=== PATIENT | female | born 1970 | race Caucasian/White ===

== ENCOUNTER 2017-01-03 19:34 | Inpatient (IN) | payer OTHER, MEDICAID ==
[2017-01-03 20:13] LABS: BASO # 0.02 K/mm3 (0.0-2.0); BASO % 0.3 % (0.0-3.0); EOS # 0.3 (0.0-0.7); EOS % 3.5 % (1.5-5.0); GRAN # 3.52 (1.4-6.5); GRAN % 47.4 % (50.0-68.0); LYMPH % 40.7 % (22.0-35.0); MEAN CELL VOLUME 95.5 fL (80.0-105.0); MEAN CORPUSCULAR HEMOGLOBIN 32.4 pg (25.0-35.0); MEAN CORPUSCULAR HGB CONC 33.9 g/dl (31.0-37.0); MEAN PLATELET VOLUME 10.5 fl (7.0-11.0); MONO # 0.6 (0.1-0.6); MONO % 8.1 % (1.0-6.0); PLATELET COUNT 244 10^3/uL (120.0-450.0); RBC 4.01 10^6/uL (3.5-6.1); RED CELL DISTRIBUTION WIDTH 12.3 % (11.5-14.5); WHITE BLOOD COUNT 7.4 10^3/ul (4.5-11.0)
--- NOTE | 2017-01-03 20:15 | CT ---
EXAM: CT Head Without Intravenous Contrast CLINICAL HISTORY: 46 years old, female; Signs and symptoms; Altered mental status/memory loss and speech disturbance; Confusion or disorientation; Slurred speech; Additional info: Code stroke TECHNIQUE: Axial computed tomography images of the head/brain without intravenous contrast. This CT exam was performed using one or more of the following dose reduction techniques: automated exposure control, adjustment of the mA and/or kV according to patient size, and/or use of iterative reconstruction technique. EXAM DATE/TIME: 01/03/2017 7:56 PM COMPARISON: There are no prior studies for comparison. FINDINGS: Brain: Ventricles are normal in size and configuration. There is no midline shift. There are no intra-axial or extra-axial mass lesions or areas of hemorrhage. There is an age indeterminate lacunar infarct in the left basal ganglia. There are no abnormal fluid collections. Navarrete-white differentiation is maintained. Ventricles: See above Bones: Cranial vault is intact. Soft tissues: unremarkable Sinuses: There is no acute sinusitis. Ears and mastoids: Middle ears and mastoids are unremarkable Orbits: Orbital contents are unremarkable. IMPRESSION: Age-indeterminate lacunar infarct left basal ganglia; no bleed If there is suspicion for acute infarct, MRI advised
[2017-01-03 20:18] LABS: ALB/GLOB RATIO 1.2 (1.1-1.8); AST/SGOT 17 U/L (15-39); BLOOD UREA NITROGEN 13 mg/dL (7-21); CALCIUM 8.9 mg/dL (8.4-10.5); GFR AFRICAN-AMERICAN > 60; GFR NON-AFRICAN AMERICAN > 60; HDL CHOLESTEROL 46 mg/dL (29-60)
[2017-01-03 20:21] LABS: INR 1.01 (0.93-1.08); PARTIAL THROMBOPLASTIN TIME 26.6 Seconds (23.7-30.8); PROTHROMBIN TIME 10.9 Seconds (9.9-11.8)
[2017-01-03 20:29] LABS: LDL CHOLESTEROL 138 mg/dL (0-129)
[2017-01-03 20:33] LABS: TROPONIN I < 0.01 ng/mL
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
[2017-01-03 20:51] LABS: ALT/SGPT 24 U/L (7-56)
[2017-01-03] MEDS ORDERED: Nicardipine 20 MG/200 ML 20 MG/200 ML BAG IV PRN (23:11)
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
--- NOTE | 2017-01-03 23:30 | CT ---
EXAM: CT Angiography Neck With Intravenous Contrast CLINICAL HISTORY: 46 years old, female; Signs and symptoms; Speech disturbance; Slurred speech; Additional info: CVA TECHNIQUE: Axial computed tomographic angiography images of the neck with intravenous contrast using CT angiography protocol. This CT exam was performed using one or more of the following dose reduction techniques: automated exposure control, adjustment of the mA and/or kV according to patient size, and/or use of iterative reconstruction technique. MIP reconstructed images were created and reviewed. Coronal and sagittal reformatted images were created and reviewed. CONTRAST: 150 mL of omnipaque 350 administered intravenously. COMPARISON: No relevant prior studies available. FINDINGS: VASCULATURE: Right common carotid artery: Unremarkable. No significant stenosis. No dissection or occlusion. Right internal carotid artery: Unremarkable. Extracranial segment is patent with no significant stenosis. No dissection or occlusion. Right external carotid artery: Unremarkable. No occlusion. Right vertebral artery: Unremarkable. No significant stenosis. No dissection or occlusion. Left common carotid artery: Unremarkable. No significant stenosis. No dissection or occlusion. Left internal carotid artery: Unremarkable. Extracranial segment is patent with no significant stenosis. No dissection or occlusion. Left external carotid artery: Unremarkable. No occlusion. Left vertebral artery: Unremarkable. No significant stenosis. No dissection or occlusion. NECK: Bones/joints: No acute fracture. No dislocation. Soft tissues: Unremarkable as visualized. No mass. CAROTID STENOSIS REFERENCE USING NASCET CRITERIA: % ICA stenosis = (1 - narrowest ICA diameter/diameter of distal cervical ICA) x 100. Mild - <50% stenosis. Moderate - 50-69% stenosis. Severe - 70-94% stenosis. Near occlusion - 95-99% stenosis. Occluded - 100% stenosis. IMPRESSION: Unremarkable CT examination of the neck, as detailed above.
--- NOTE | 2017-01-03 23:35 | CT ---
EXAM: CT Angiography Head With Intravenous Contrast CLINICAL HISTORY: 46 years old, female; Signs and symptoms; Speech disturbance; Slurred speech; Additional info: CVA TECHNIQUE: Axial computed tomographic angiography images of the head with intravenous contrast using CT angiography protocol. This CT exam was performed using one or more of the following dose reduction techniques: automated exposure control, adjustment of the mA and/or kV according to patient size, and/or use of iterative reconstruction technique. MIP reconstructed images were created and reviewed. Coronal and sagittal reformatted images were created and reviewed. CONTRAST: 150 mL of omnipaque 350 administered intravenously. COMPARISON: CT - HEAD W/O (CODE STROKE) 01/03/2017 7:52:14 PM FINDINGS: Right internal carotid artery: No acute findings. Intracranial segment is patent with no significant stenosis. No aneurysm. Right anterior cerebral artery: Unremarkable. No occlusion or significant stenosis. No aneurysm. Right middle cerebral artery: Unremarkable. No occlusion or significant stenosis. No aneurysm. Right posterior cerebral artery: Unremarkable. No occlusion or significant stenosis. No aneurysm. Right vertebral artery: Unremarkable as visualized. Left internal carotid artery: No acute findings. Intracranial segment is patent with no significant stenosis. No aneurysm. Left anterior cerebral artery: Unremarkable. No occlusion or significant stenosis. No aneurysm. Left middle cerebral artery: Unremarkable. No occlusion or significant stenosis. No aneurysm. Left posterior cerebral artery: Unremarkable. No occlusion or significant stenosis. No aneurysm. Left vertebral artery: Unremarkable as visualized. Basilar artery: Unremarkable. No occlusion or significant stenosis. No aneurysm. IMPRESSION: Unremarkable CTA of the head, as detailed above.
[2017-01-04 01:49] VITALS: BMI 27.8
[2017-01-04] MEDS ORDERED: Pneumococcal 23-Valent Vaccine IM ONE (01:49)
[2017-01-04 05:49] LABS: HEMOGLOBIN 13.4 gm/dL (12.0-16.0); MEAN CELL VOLUME 96.1 fL (80.0-105.0); MEAN CORPUSCULAR HEMOGLOBIN 32.4 pg (25.0-35.0); MEAN CORPUSCULAR HGB CONC 33.7 g/dl (31.0-37.0); MEAN PLATELET VOLUME 10.6 fl (7.0-11.0); PLATELET COUNT 243 10^3/uL (120.0-450.0); RBC 4.14 10^6/uL (3.5-6.1); RED CELL DISTRIBUTION WIDTH 12.6 % (11.5-14.5); WHITE BLOOD COUNT 7.8 10^3/ul (4.5-11.0)
[2017-01-04 05:54] LABS: INR 1.03 (0.93-1.08); PARTIAL THROMBOPLASTIN TIME 25.7 Seconds (23.7-30.8); PROTHROMBIN TIME 11.1 Seconds (9.9-11.8)
[2017-01-04 06:24] LABS: ALB/GLOB RATIO 1.3 (1.1-1.8); ALBUMIN 3.9 g/dL (3.0-4.8); ALT/SGPT 18 U/L (7-56); AST/SGOT 20 U/L (15-39); BLOOD UREA NITROGEN 11 mg/dL (7-21); CALCIUM 9.3 mg/dL (8.4-10.5); GFR AFRICAN-AMERICAN > 60; GFR NON-AFRICAN AMERICAN > 60
[2017-01-04 06:41] LABS: EOSINOPHIL 3 % (0.0-3.0); LYMPHOCYTE 43 % (22.0-35.0); MONOCYTE 7 % (1.0-6.0); NEUTROPHIL 44 % (50.0-70.0)
[2017-01-04 06:42] LABS: BAND 3 % (0-2)
[2017-01-04 06:43] LABS: PLATELET ESTIMATE NORMAL (NORMAL)
--- NOTE | 2017-01-04 07:45 | RAD ---
PROCEDURE: CHEST RADIOGRAPH, 1 VIEW HISTORY: cva COMPARISON: None available. FINDINGS: LUNGS: Clear. PLEURA: No pneumothorax or pleural fluid seen. CARDIOVASCULAR: Normal. OSSEOUS STRUCTURES: No significant abnormalities. VISUALIZED UPPER ABDOMEN: Normal. OTHER FINDINGS: None. IMPRESSION: No active disease.
--- NOTE | 2017-01-04 11:29 | CARD ---
APPROVED REPORT EKG Measurement Heart [id number] <Conclusion> Sinus rhythm with short NC Otherwise normal ECG
[2017-01-04] MEDS ORDERED: DiphenhydrAMINE 50 mg/ml Inj IM ONE (11:39)
--- NOTE | 2017-01-04 11:39 | CP.PCM.CON ---
History of Present Illness - History of Present Illness History of Present Illness: Mrs. Victor is a 46-year-old woman with a history of two previous ischemic strokes in 2012 and 2014 that left her with some left sided weakness. She is able to ambulate with the use of a brace at baseline, and is able to use her left arm. However, yesterday she developed sudden worsening of her left side weakness and could no longer stand or use her left side. Her family called 911 immediately and the patient was brought to the ED where a CT scan of the head did not show any acute findings. She was within the 3 hour tPA time window and she received the infusion without any complications. Today, she states that she is feeling better and has regained much of the movement back on the left side. She denied headache, visual changes, nausea, swelling, difficulty with respirations or any rashes. Review of Systems - Review of Systems All systems: reviewed and no additional remarkable complaints except Past Patient History - Infectious Disease Hx of Infectious Diseases: None - Tetanus Immunizations Tetanus Immunization: Unknown - Past Social History Smoking Status: Never Smoked - CARDIAC Hx Hypertension: Yes - PULMONARY Hx Respiratory Disorders: No - NEUROLOGICAL Hx Neurological Disorder: Yes HX Cerebrovascular Accident: Yes (02/2014?; 12/04/14) Hx Migraine: Yes (Takes Fiorcet.) - HEENT Hx HEENT Problems: No - RENAL Hx Chronic Kidney Disease: No - ENDOCRINE/METABOLIC Hx Endocrine Disorders: No - HEMATOLOGICAL/ONCOLOGICAL Hx Blood Disorders: No - INTEGUMENTARY Hx Dermatological Problems: No - MUSCULOSKELETAL/RHEUMATOLOGICAL Hx Musculoskeletal Disorders: Yes (Hx of Rt Knee Surgery 2014.) Hx Falls: No - GASTROINTESTINAL Hx Gastrointestinal Disorders: Yes (Gastritis) - GENITOURINARY/GYNECOLOGICAL Hx Genitourinary Disorders: No - PSYCHIATRIC Hx Depression: No Hx Emotional Abuse: No Hx Physical Abuse: No Hx Substance Use: No - SURGICAL HISTORY Hx Surgeries: No Hx Cholecystectomy: Yes Hx Hysterectomy: Yes - ANESTHESIA Hx Anesthesia: No Hx Anesthesia Reactions: No Hx Malignant Hyperthermia: No Meds Allergies/Adverse Reactions: Allergies Allergy/AdvReac Type Severity Reaction Status Date / Time avocado Allergy Severe SWELLING Verified 01/04/17 03:58 aspirin Allergy Intermediate NAUSEA Verified 01/03/17 19:57 - Medications Medications: Current Medications Atorvastatin Calcium (Lipitor) 80 mg PO DIN AIDEN Nicardipine HCl (Cardene Iv Premix) 20 mg in 200 mls @ 50 mls/hr IV .Q4H PRN; Protocol; 5 MG/HR PRN Reason: TITRATE PER MD ORDER Last Titration: 01/04/17 02:30 Dose: 0 mg/hr, 0 mls/hr Ketorolac Tromethamine (Toradol) 30 mg IVP Q6H PRN PRN Reason: Pain, moderate (4-7) Stop: 01/05/17 23:16 Last Admin: 01/04/17 10:16 Dose: 30 mg Pantoprazole Sodium (Protonix Inj) 40 mg IVP DAILY AIDEN Last Admin: 01/04/17 10:16 Dose: 40 mg Physical Exam - Constitutional Appears: Well - Head Exam Head Exam: ATRAUMATIC, NORMAL INSPECTION, NORMOCEPHALIC - Eye Exam Eye Exam: EOMI, Normal appearance, PERRL - ENT Exam ENT Exam: Mucous Membranes Moist, Normal Exam - Neck Exam Neck exam: Positive for: Normal Inspection - Respiratory Exam Respiratory Exam: Clear to Auscultation Bilateral, NORMAL BREATHING PATTERN - Cardiovascular Exam Cardiovascular Exam: REGULAR RHYTHM, +S1, +S2 - GI/Abdominal Exam GI & Abdominal Exam: Normal Bowel Sounds, Soft. absent: Tenderness - Neurological Exam Neurological exam: Abnormal Gait, Alert, CN II-XII Intact, Oriented x3 Additional comments: Strength in the RUE is 5/5, strength in the LUE is 3/5 proximally and 3/5 distally. Strength in the LLE is 2/5 proximally and 4/5 distally. Reflexes are brisk on the left as compared with the right. Speech is clear, no aphasia, no dysarthria, no visual changes. Decreased sensation on the left throughout as compared with the right side. Gait could not be assessed. NIHSS = 6 - Psychiatric Exam Psychiatric exam: Normal Affect, Normal Mood - Skin Skin Exam: Dry, Intact, Normal Color, Warm Results - Vital Signs Recent Vital Signs: Last Vital Signs Temp 98.8 F 01/04/17 00:00 Pulse 72 01/04/17 06:30 Resp 13 01/04/17 06:30 BP 125/68 01/04/17 06:30 Pulse Ox 99 01/04/17 00:00 - Labs Result Diagrams: 01/04/17 05:30 01/04/17 05:30 Labs: Laboratory Results - last 24 hr 01/04/17 01/04/17 01/04/17 05:30 05:30 05:30 WBC 7.8 RBC 4.14 Hgb 13.4 Hct 39.8 MCV 96.1 MCH 32.4 MCHC 33.7 RDW 12.6 Plt Count 243 MPV 10.6 Neutrophils % (Manual) 44 L Band Neutrophils % 3 H Lymphocytes % (Manual) 43 H Monocytes % (Manual) 7 H Eosinophils % (Manual) 3 Platelet Evaluation Normal PT 11.1 INR 1.03 APTT 25.7 Sodium 140 Potassium 4.1 Chloride 103 Carbon Dioxide 24 Anion Gap 17 BUN 11 Creatinine 0.5 Est GFR ( Amer) > 60 Est GFR (Non-Af Amer) > 60 Random Glucose 103 Calcium 9.3 Total Bilirubin 0.4 AST 20 ALT 18 Alkaline Phosphatase 56 Total Protein 7.0 Albumin 3.9 Globulin 3.0 Albumin/Globulin Ratio 1.3 - Imaging and Cardiology CT scan - head Status: Image reviewed by me, Report reviewed by me (Chronic left basal ganglia ischemic stroke, no acute findings. ) Assessment & Plan (1) CVA (cerebral vascular accident) Assessment and Plan: 1. Telemetry 2. MRI of the brain without contrast, MRA of the head/neck without contrast 3. Echocardiogram with bubble study 4. Repeat CT head 24 hours after tPA 5. Neuro-checks Q1 hour for the first 24 hours 6. Hold antiplatelet agents for the first 24 hours, may start aspirin 81 mg PO daily after 7. NPO till speech and swallow eval 8. PT/OT eval and treat 9. Keep head elevated to [address] head if change in mental status or worsening neurologic function 11. Continue fluids with NS at 100 mL/hr. Thank you. Status: Acute
[2017-01-04] MEDS ORDERED: DiphenhydrAMINE 50 mg/ml Inj IVP ONE (12:53)
--- NOTE | 2017-01-04 15:03 | CP.CCUPN ---
<LayoDavid - Last Filed: 01/04/17 15:29> CCU Subjective - Physician Review Events Since Last Encounter (Free Text): 01/04/17 15:20 Patient reports having mild improvement in left UE strength, less disoriented, and slurring of speech is less apparent. 01/04/17 15:22 Critical Care Time Spent (in minutes): 30 CCU Objective - Vital Signs / Intake & Output Vital Signs (Last 4 hours): Vital Signs Pulse Resp BP Pulse Ox 01/04/17 14:30 89 15 142/76 100 01/04/17 14:20 89 15 100 01/04/17 14:10 73 12 100 01/04/17 14:00 79 13 134/81 100 01/04/17 13:50 78 13 01/04/17 13:40 80 13 01/04/17 13:30 81 14 144/84 100 01/04/17 13:20 86 14 01/04/17 13:10 84 15 01/04/17 13:00 76 14 124/88 01/04/17 12:50 77 15 01/04/17 12:40 75 16 01/04/17 12:30 82 13 127/87 100 01/04/17 12:20 80 12 100 01/04/17 12:10 80 13 100 01/04/17 12:00 79 16 139/85 01/04/17 11:50 81 15 100 01/04/17 11:40 85 14 100 01/04/17 11:30 86 15 157/79 H 100 01/04/17 11:20 90 15 100 01/04/17 11:10 89 17 100 01/04/17 11:00 80 19 132/81 100 Intake and Output (Last 8hrs): Intake & Output 01/03/17 01/04/17 01/04/17 22:59 06:59 14:59 Intake Total 300 Output Total 400 Balance -100 Weight 162 lb 3.2 oz 157 lb Intake: IV 300 Left Wrist 150 Output: Urine 400 Urine, Voided 400 Other: Voiding Method Bedpan # Voids Urine, Voided 2 - Physical Exam Head: Positive for: Atraumatic, Normocephalic Pupils: Positive for: PERRL Extroacular Muscles: Positive for: EOMI Conjunctiva: Positive for: Normal, Other (right nasal pterygium) Mouth: Positive for: Moist Mucous Membranes, Normal Lips Pharnyx: Positive for: Normal. Negative for: Uvular Deviation, Muffled/Hoarse Voice Nose (Internal): Positive for: Normal Inspection Neck: Positive for: Normal Range of Motion, Trachea Midline Respiratory/Chest: Positive for: Clear to Auscultation, Good Air Exchange. Negative for: Respiratory Distress, Accessory Muscle Use Cardiovascular: Positive for: Regular Rate and Rhythm, Normal S1, S2. Negative for: Murmurs, Tachycardic Abdomen: Positive for: Normal Bowel Sounds. Negative for: Tenderness, Distention, Peritoneal Signs Back: Positive for: Normal Inspection Upper Extremity: Positive for: Normal Inspection. Negative for: Cyanosis, Edema Lower Extremity: Positive for: Normal Inspection. Negative for: Edema Neurological: Positive for: GCS=15, CN II-XII Intact, Speech Normal, Other ( left upper and lower extremity hemiplegia). Negative for: Normal Sensory Function (right-sided hyperesthesia present), Gait Normal (Patient is wheel chair bound) Skin: Positive for: Warm, Dry, Normal Color. Negative for: Rashes Psychiatric: Positive for: Alert, Normal Insight, Normal Concentration - Medications Active Medications: Active Medications Generic Name Dose Route Start Last Admin Trade Name Freq PRN Reason Stop Dose Admin Aspirin 81 mg 01/05/17 10:00 Aspirin Chewable PO DAILY [facility] Atorvastatin Calcium 80 mg 01/04/17 17:00 Lipitor PO DIN [facility] Ketorolac Tromethamine 30 mg 01/03/17 23:15 01/04/17 10:16 Toradol IVP 01/05/17 23:16 30 mg Q6H PRN Administration Pain, moderate (4-7) Pantoprazole Sodium 40 mg 01/04/17 10:00 01/04/17 10:16 Protonix Inj IVP 40 mg DAILY [facility] Administration - Patient Studies Lab Studies: Lab Studies 01/04/17 01/04/17 01/04/17 Range/Units 05:30 05:30 05:30 WBC 7.8 (4.5-11.0) 10^3/ul RBC 4.14 (3.5-6.1) 10^6/uL Hgb 13.4 (12.0-16.0) gm/dL Hct 39.8 (36.0-48.0) % MCV 96.1 (80.0-105.0) fL MCH 32.4 (25.0-35.0) pg MCHC 33.7 (31.0-37.0) g/dl RDW 12.6 (11.5-14.5) % Plt Count 243 (120.0-450.0) 10^3/uL MPV 10.6 (7.0-11.0) fl Neutrophils % (Manual) 44 L (50.0-70.0) % Band Neutrophils % 3 H (0-2) % Lymphocytes % (Manual) 43 H (22.0-35.0) % Monocytes % (Manual) 7 H (1.0-6.0) % Eosinophils % (Manual) 3 (0.0-3.0) % Platelet Evaluation Normal (NORMAL) PT 11.1 (9.9-11.8) Seconds INR 1.03 (0.93-1.08) APTT 25.7 (23.7-30.8) Seconds Sodium 140 (132-148) mmol/L Potassium 4.1 (3.6-5.0) mmol/L Chloride 103 (95-110) mmol/L Carbon Dioxide 24 (21-33) mmol/L Anion Gap 17 (10-20) BUN 11 (7-21) mg/dL Creatinine 0.5 (0.5-1.4) mg/dL Est GFR ( Amer) > 60 Est GFR (Non-Af Amer) > 60 Random Glucose 103 (70-110) mg/dL Calcium 9.3 (8.4-10.5) mg/dL Total Bilirubin 0.4 (0.2-1.3) mg/dL AST 20 (15-39) U/L ALT 18 (7-56) U/L Alkaline Phosphatase 56 (38-133) U/L Total Protein 7.0 (5.8-8.3) g/dL Albumin 3.9 (3.0-4.8) g/dL Globulin 3.0 gm/dL Albumin/Globulin Ratio 1.3 (1.1-1.8) Laboratory Results - last 24 hr 01/04/17 01/04/17 01/04/17 05:30 05:30 05:30 WBC 7.8 RBC 4.14 Hgb 13.4 Hct 39.8 MCV 96.1 MCH 32.4 MCHC 33.7 RDW 12.6 Plt Count 243 MPV 10.6 Neutrophils % (Manual) 44 L Band Neutrophils % 3 H Lymphocytes % (Manual) 43 H Monocytes % (Manual) 7 H Eosinophils % (Manual) 3 Platelet Evaluation Normal PT 11.1 INR 1.03 APTT 25.7 Sodium 140 Potassium 4.1 Chloride 103 Carbon Dioxide 24 Anion Gap 17 BUN 11 Creatinine 0.5 Est GFR ( Amer) > 60 Est GFR (Non-Af Amer) > 60 Random Glucose 103 Calcium 9.3 Total Bilirubin 0.4 AST 20 ALT 18 Alkaline Phosphatase 56 Total Protein 7.0 Albumin 3.9 Globulin 3.0 Albumin/Globulin Ratio 1.3 Radiology Impressions: Age-indeterminate lacunar infarct left basal ganglia; no bleed If there is suspicion for acute infarct, MRI advised EKG/Cardiology Studies: normal rhythm Fingerstick Blood Sugar Results: 110 Results Reviewed to Date: Yes Review of Systems - Review of Systems Systems not reviewed;Unavailable: Language Barrier (Patient speaks [place]. I spoke to patient in [place] and confirmed accuracy of communication with daughter ( speaker phone)) - Constitutional Constitutional: Weakness. absent: Fever, Chills - EENT Eyes: absent: Change in Vision Critical Care Progress Note - Nutrition Nutrition: Nutrition Category Date Time Status NPO Diet [DIET] Diets 01/04/17 Breakfast Ordered Assessment/Plan (1) CVA (cerebral vascular accident) Current Visit: Yes Status: Ruled-out Priority: High - Assessment and Plan (Free Text) Assessment: 1) Ischemic stroke, clinically evidenced, and treated with tPa. Patient is NPO, speech and swallow evaluation have been performed. Per my assessment and examination, the patient has a left-sided hemiparesis, with hyperesthesia of the right side. Patient did have left sided hemiparesis already, and has been wheel-chair bound for the past 3 years due to a stroke (per family). Neurology is on board. - Date & Time Date: 01/04/17 Time: 15:49 <Jayy Rawls - Last Filed: 01/04/17 16:20> CCU Objective - Vital Signs / Intake & Output Vital Signs (Last 4 hours): Vital Signs Pulse Resp BP Pulse Ox 01/04/17 14:30 89 15 142/76 100 01/04/17 14:20 89 15 100 07/03/17 14:10 73 12 01/04/17 14:00 79 13 134/81 01/04/17 13:50 78 13 01/04/17 13:40 80 13 01/04/17 13:30 81 14 144/84 01/04/17 13:20 86 14 01/04/17 13:10 84 15 01/04/17 13:00 76 14 124/88 01/04/17 12:50 77 15 01/04/17 12:40 75 16 01/04/17 12:30 82 13 127/87 01/04/17 12:20 80 12 100 Intake and Output (Last 8hrs): Intake & Output 01/04/17 01/04/17 01/04/17 06:59 14:59 22:59 Intake Total 300 Output Total 400 Balance -100 Weight 162 lb 3.2 oz 157 lb Intake: IV 300 Left Wrist 150 Output: Urine 400 Urine, Voided 400 Other: Voiding Method Bedpan # Voids Urine, Voided 2 - Medications Active Medications: Active Medications Generic Name Dose Route Start Last Admin Trade Name Freq PRN Reason Stop Dose Admin Atorvastatin Calcium 80 mg 01/04/17 17:00 Lipitor PO DIN [facility] Ketorolac Tromethamine 30 mg 01/03/17 23:15 01/04/17 10:16 Toradol IVP 01/05/17 23:16 30 mg Q6H PRN Administration Pain, moderate (4-7) Pantoprazole Sodium 40 mg 01/04/17 10:00 01/04/17 10:16 Protonix Inj IVP 40 mg DAILY [facility] Administration - Patient Studies Lab Studies: Lab Studies 01/04/17 01/04/17 01/04/17 Range/Units 05:30 05:30 05:30 WBC 7.8 (4.5-11.0) 10^3/ul RBC 4.14 (3.5-6.1) 10^6/uL Hgb 13.4 (12.0-16.0) gm/dL Hct 39.8 (36.0-48.0) % MCV 96.1 (80.0-105.0) fL MCH 32.4 (25.0-35.0) pg MCHC 33.7 (31.0-37.0) g/dl RDW 12.6 (11.5-14.5) % Plt Count 243 (120.0-450.0) 10^3/uL MPV 10.6 (7.0-11.0) fl Neutrophils % (Manual) 44 L (50.0-70.0) % Band Neutrophils % 3 H (0-2) % Lymphocytes % (Manual) 43 H (22.0-35.0) % Monocytes % (Manual) 7 H (1.0-6.0) % Eosinophils % (Manual) 3 (0.0-3.0) % Platelet Evaluation Normal (NORMAL) PT 11.1 (9.9-11.8) Seconds INR 1.03 (0.93-1.08) APTT 25.7 (23.7-30.8) Seconds Sodium 140 (132-148) mmol/L Potassium 4.1 (3.6-5.0) mmol/L Chloride 103 (95-110) mmol/L Carbon Dioxide 24 (21-33) mmol/L Anion Gap 17 (10-20) BUN 11 (7-21) mg/dL Creatinine 0.5 (0.5-1.4) mg/dL Est GFR ( Amer) > 60 Est GFR (Non-Af Amer) > 60 Random Glucose 103 (70-110) mg/dL Calcium 9.3 (8.4-10.5) mg/dL Total Bilirubin 0.4 (0.2-1.3) mg/dL AST 20 (15-39) U/L ALT 18 (7-56) U/L Alkaline Phosphatase 56 (38-133) U/L Total Protein 7.0 (5.8-8.3) g/dL Albumin 3.9 (3.0-4.8) g/dL Globulin 3.0 gm/dL Albumin/Globulin Ratio 1.3 (1.1-1.8) Laboratory Results - last 24 hr 01/04/17 01/04/17 01/04/17 05:30 05:30 05:30 WBC 7.8 RBC 4.14 Hgb 13.4 Hct 39.8 MCV 96.1 MCH 32.4 MCHC 33.7 RDW 12.6 Plt Count 243 MPV 10.6 Neutrophils % (Manual) 44 L Band Neutrophils % 3 H Lymphocytes % (Manual) 43 H Monocytes % (Manual) 7 H Eosinophils % (Manual) 3 Platelet Evaluation Normal PT 11.1 INR 1.03 APTT 25.7 Sodium 140 Potassium 4.1 Chloride 103 Carbon Dioxide 24 Anion Gap 17 BUN 11 Creatinine 0.5 Est GFR ( Amer) > 60 Est GFR (Non-Af Amer) > 60 Random Glucose 103 Calcium 9.3 Total Bilirubin 0.4 AST 20 ALT 18 Alkaline Phosphatase 56 Total Protein 7.0 Albumin 3.9 Globulin 3.0 Albumin/Globulin Ratio 1.3 Critical Care Progress Note - Nutrition Nutrition: Nutrition Category Date Time Status NPO Diet [DIET] Diets 01/04/17 Breakfast Ordered Attending/Attestation - Attestation I have personally seen and examined this patient.: Yes I have fully participated in the care of the patient.: Yes I have reviewed all pertinent clinical information: Yes Notes (Text): 01/04/17 16:14 46 yo with acute ischemic stroke, s/p tPA. BP controlled (less then 180/105), patient is allergic to aspirin, thus dipyridamole should be considered 24 hrs after tPA. Echo, carotid doppler, PT/OT, swallow eval, early mobilization. Maintain euvolemia, euglycemia, normothermia. DVT/GI prophylaxis. ccm time 40 min
--- NOTE | 2017-01-04 17:13 | MRI ---
PROCEDURE: MRI BRAIN WITHOUT CONTRAST HISTORY: Stroke COMPARISON: Noncontrast head CT from 01/03/2017 TECHNIQUE: Multiplanar, multisequence MR images of the brain were obtained without intravenous contrast enhancement. FINDINGS: HEMORRHAGE: None DWI: No evidence of an acute or early subacute infarction. BRAIN PARENCHYMA: Navarrete-white matter differentiation is preserved. There is no mass, mass effect or abnormal extra-axial fluid collection. There is an old infarction in the left montoya radiata. There are scattered T2/FLAIR hyperintense foci in bifrontal subcortical white matter. The midline sagittal structures are normal with VENTRICLES: The ventricles are normal in size, shape and configuration. CRANIUM: There is normal bone marrow signal pattern. ORBITS: Grossly unremarkable. PARANASAL SINUSES/MASTOIDS: Predominantly clear. VASCULAR SYSTEM: There are normal signal voids in the larger intracranial arteries. OTHER FINDINGS: None. IMPRESSION: 1. No acute intracranial abnormality. Specifically, no evidence of acute infarction. 2. Old lacunar infarction in the left montoya radiata. 3. Mild bifrontal subcortical white matter changes are strictly nonspecific, the differential considerations include early chronic microangiopathic changes, migraine headache effect, gliosis, vasculitis, demyelinating disease including multiple sclerosis and Lyme disease. Clinical follow-up is advised.
--- NOTE | 2017-01-04 17:16 | MRI ---
PROCEDURE: Magnetic Resonance Angiography Brain HISTORY: Stroke COMPARISON: CTA head from 01/03/2017. TECHNIQUE: 3D time of flight MR angiography of the intracranial arteries was performed. Rotating maximum intensity projection images were generated. FINDINGS: INTERNAL CEREBRAL ARTERIES: Normal in caliber and widely patent. The skull base, petrous, cavernous and supraclinoid segments are bilaterally widely patient. ANTERIOR CEREBRAL ARTERIES: Normal in caliber and widely patent. A1 and A2 segments are widely patent. Smaller distal branches unremarkable, as visualized. MIDDLE CEREBRAL ARTERIES: Normal in caliber and widely patent. M1 and M2 segments are widely patent. Perisylvian branches grossly symmetric. POSTERIOR CIRCULATION: Basilar Artery: Normal in caliber and widely patent. Distal Vertebral Arteries: Normal in caliber and widely patent. Posterior Cerebral Arteries: Normal in caliber and widely patent. Posterior Inferior Cerebellar Arteries: Normal in caliber and widely patent. ANEURYSM/ VASCULAR MALFORMATIONS: None. OTHER FINDINGS: None. IMPRESSION: Normal MR angiography of the brain.
--- NOTE | 2017-01-04 17:22 | MRI ---
PROCEDURE: MR Angiography of the neck without contrast HISTORY: Stroke COMPARISON: CTA neck from 01/03/2017. TECHNIQUE: 3D [id number] angiography of the neck was performed. Rotating maximum intensity projection images of the cervical carotid and vertebral arteries were generated. The origins of the common carotid arteries were not visualized, which is a limitation inherent to the non-contrast time of flight technique. FINDINGS: RIGHT CAROTID ARTERIES: Common Carotid Artery: Normal. Carotid Bifurcation: Normal. Internal Carotid Artery:Normal. External Carotid Artery (proximal branches): Normal. LEFT CAROTID ARTERIES: Common Carotid Artery: Normal. Carotid Bifurcation: Normal. Internal Carotid Artery:Normal. External Carotid Artery (proximal branches): Normal. VERTEBRAL ARTERIES: Right Vertebral Artery: Normal. Left Vertebral Artery: Normal. OTHER FINDINGS: None. IMPRESSION: Normal MR Angiography of the neck.
--- NOTE | 2017-01-04 17:34 | CP.PCM.PN ---
<TRA MEEHAN - Last Filed: 01/04/17 17:57> Subjective - Date & Time of Evaluation Date of Evaluation: 01/04/17 Time of Evaluation: 09:40 - Subjective Subjective: Pt was seen and assessed at bedside. Pt had difficulty speaking but was responsive to verbal commands. ROS was limited due to pt's difficulty speaking but she denied difficulty breathing, chest pain and abdominal pain. Objective - Vital Signs/Intake and Output Vital Signs (last 24 hours): Temp Pulse Resp BP Pulse Ox 98.8 F 89 15 142/76 100 01/04/17 00:00 01/04/17 14:30 01/04/17 14:30 01/04/17 14:30 01/04/17 14:30 Intake and Output: 01/04/17 01/04/17 06:59 18:59 Intake Total 300 Output Total 400 Balance -100 - Medications Medications: Current Medications Aspirin (Aspirin Chewable) 81 mg PO DAILY [facility] Atorvastatin Calcium (Lipitor) 80 mg PO DIN [facility] Ketorolac Tromethamine (Toradol) 30 mg IVP Q6H PRN PRN Reason: Pain, moderate (4-7) Stop: 01/05/17 23:16 Last Admin: 01/04/17 10:16 Dose: 30 mg Pantoprazole Sodium (Protonix Inj) 40 mg IVP DAILY [facility] Last Admin: 01/04/17 10:16 Dose: 40 mg - Labs Labs: 01/04/17 05:30 01/04/17 05:30 PT 11.1 Seconds (9.9-11.8) 01/04/17 05:30 INR 1.03 (0.93-1.08) 01/04/17 05:30 APTT 25.7 Seconds (23.7-30.8) 01/04/17 05:30 - Constitutional Appears: No Acute Distress - Head Exam Head Exam: ATRAUMATIC, NORMOCEPHALIC - Eye Exam Eye Exam: EOMI, Normal appearance - ENT Exam ENT Exam: Mucous Membranes Moist, Normal Exam - Respiratory Exam Respiratory Exam: Clear to Ausculation Bilateral, NORMAL BREATHING PATTERN. absent: Rales, Rhonchi, Wheezes - Cardiovascular Exam Cardiovascular Exam: REGULAR RHYTHM, +S1, +S2. absent: Murmur - GI/Abdominal Exam GI & Abdominal Exam: absent: Distended - Extremities Exam Extremities Exam: absent: Calf Tenderness, Pedal Edema - Neurological Exam Neurological Exam: Alert, Awake, Motor Sensory Deficit, Oriented x3. absent: Normal Gait Neuro motor strength exam: Left Upper Extremity: 2/1, Right Upper Extremity: 5, Left Lower Extremity: 2/1, Right Lower Extremity: 5 - Psychiatric Exam Psychiatric exam: Normal Affect, Normal Mood - Skin Skin Exam: Dry, Intact, Normal Color, Warm Assessment and Plan - Assessment and Plan (Free Text) Assessment: 46yo female with a history of 2 prior CVA's, hypertension and hyperlipidemia was admitted for suspected CVA/TIA 1. Acute ischemic stroke -CT Head revealed age indeterminate lacunar infarct in the left basal ganglia with no apparent bleed -Patient was administered tPA per neurology recommendations -CTA head/neck were unremarkable -Head/Neck MRA were unremarkable -MRI Brain showed no acute intracranial abnormality, specifically no evidence of acute infarction, and old lacunar infarction in the left montoya radiata -Continue lipitor 80mg PO daily -Pt reports allergy to aspirin due to gastritis; will discuss alternatives with neurology consult -Neurochecks q2h -Aspiration precautions -PT/OT evaluation -Speech/swallow evaluation -Continue fluids with NS at 100 mL/hr 2. Gi/DVT Prophylaxis -Protonix/SCD's <Roberth Quevedo - Last Filed: 01/05/17 07:58> Objective - Vital Signs/Intake and Output Vital Signs (last 24 hours): Temp Pulse Resp BP Pulse Ox 98.3 F 87 15 132/80 100 01/05/17 00:00 01/05/17 00:00 01/05/17 00:00 01/05/17 00:00 01/05/17 00:00 Intake and Output: 01/05/17 01/05/17 06:59 18:59 Output Total 400 Balance -400 - Medications Medications: Current Medications Acetaminophen (Tylenol 325mg Tab) 650 mg PO Q6H PRN PRN Reason: Fever >100.4 F Aspirin (Aspirin Chewable) 81 mg PO DAILY [facility] Atorvastatin Calcium (Lipitor) 80 mg PO DIN [facility] Last Admin: 01/04/17 17:30 Dose: Not Given Pantoprazole Sodium (Protonix Inj) 40 mg IVP DAILY [facility] Last Admin: 01/04/17 10:16 Dose: 40 mg - Labs Labs: 01/05/17 04:45 01/05/17 04:45 PT 11.1 Seconds (9.9-11.8) 01/04/17 05:30 INR 1.03 (0.93-1.08) 01/04/17 05:30 APTT 25.7 Seconds (23.7-30.8) 01/04/17 05:30 Attending/Attestation - Attestation I have personally seen and examined this patient.: Yes I have fully participated in the care of the patient.: Yes I have reviewed all pertinent clinical information, including history, physical exam and plan: Yes Notes (Text): 01/04/17 46 year old female with past medical history of prior CVAs, hypertension and dyslipidemia who presented with suspected stroke with symptoms of left sided weakness. She received TPA on admission and was admitted to the ICU. CT head showed age indeterminate lacunar infarct in the left basal ganglia. CTA and MRA were negative. MRI brain showed no acute intracranial abnormality, no evidence of acute infarct, showed an old lacunar infarction in the left montoya radiata. She is on lipitor. Family reported mild gastritis with use of aspirin in the past, however patient was given aspirin x 2 in the field which she tolerated. Can continue for now if she tolerates. Echocardiogram is ordered and PT evaluation was requested. Neurology evaluation was appreciated. She is NPO for now while awaiting speech/swallow and ENT evaluation. BP has improved and her nicardipene drip was discontinued. Roberth Quevedo MD Hospitalist.
--- NOTE | 2017-01-04 18:05 | CP.PCM.CON ---
History of Present Illness - History of Present Illness History of Present Illness: full consultation dictated 1115 46 yo F s/p tpa for cva - flexible fiberoptic laryngoscopy demonstartes patent airway, with right hem TVC - no masses/lesions, no reason not able swallow - ok to start clears, can advance to soft - voice rest - can fu as outpatient for further eval Past Patient History - Infectious Disease Hx of Infectious Diseases: None - Tetanus Immunizations Tetanus Immunization: Unknown - Past Social History Smoking Status: Never Smoked - CARDIAC Hx Hypertension: Yes - PULMONARY Hx Respiratory Disorders: No - NEUROLOGICAL HX Cerebrovascular Accident: Yes (L sided weakness; use of TPA) - HEENT Hx HEENT Problems: No - RENAL Hx Chronic Kidney Disease: No - ENDOCRINE/METABOLIC Hx Endocrine Disorders: No - HEMATOLOGICAL/ONCOLOGICAL Hx Blood Disorders: No - INTEGUMENTARY Hx Dermatological Problems: No - MUSCULOSKELETAL/RHEUMATOLOGICAL Hx Musculoskeletal Disorders: Yes (Hx of Rt Knee Surgery 2015.) Hx Falls: No - GASTROINTESTINAL Hx Gastrointestinal Disorders: Yes (Gastritis) - GENITOURINARY/GYNECOLOGICAL Hx Genitourinary Disorders: No - PSYCHIATRIC Hx Depression: No Hx Emotional Abuse: No Hx Physical Abuse: No Hx Substance Use: No - SURGICAL HISTORY Hx Surgeries: No Hx Cholecystectomy: Yes Hx Hysterectomy: Yes - ANESTHESIA Hx Anesthesia: No Hx Anesthesia Reactions: No Hx Malignant Hyperthermia: No Meds Allergies/Adverse Reactions: Allergies Allergy/AdvReac Type Severity Reaction Status Date / Time avocado Allergy Severe SWELLING Verified 01/04/17 03:58 aspirin Allergy Intermediate NAUSEA Verified 01/03/17 19:57 - Medications Medications: Current Medications Aspirin (Aspirin Chewable) 81 mg PO DAILY [facility] Atorvastatin Calcium (Lipitor) 80 mg PO DIN [facility] Last Admin: 01/04/17 17:30 Dose: Not Given Ketorolac Tromethamine (Toradol) 30 mg IVP Q6H PRN PRN Reason: Pain, moderate (4-7) Stop: 01/05/17 23:16 Last Admin: 01/04/17 17:36 Dose: 30 mg Pantoprazole Sodium (Protonix Inj) 40 mg IVP DAILY [facility] Last Admin: 01/04/17 10:16 Dose: 40 mg Results - Vital Signs Recent Vital Signs: Last Vital Signs Temp 98.8 F 01/04/17 00:00 Pulse 89 01/04/17 14:30 Resp 15 01/04/17 14:30 BP 142/76 01/04/17 14:30 Pulse Ox 100 01/04/17 14:30 - Labs Result Diagrams: 01/04/17 05:30 01/04/17 05:30 Labs: Laboratory Results - last 24 hr 01/04/17 01/04/17 01/04/17 05:30 05:30 05:30 WBC 7.8 RBC 4.14 Hgb 13.4 Hct 39.8 MCV 96.1 MCH 32.4 MCHC 33.7 RDW 12.6 Plt Count 243 MPV 10.6 Neutrophils % (Manual) 44 L Band Neutrophils % 3 H Lymphocytes % (Manual) 43 H Monocytes % (Manual) 7 H Eosinophils % (Manual) 3 Platelet Evaluation Normal PT 11.1 INR 1.03 APTT 25.7 Sodium 140 Potassium 4.1 Chloride 103 Carbon Dioxide 24 Anion Gap 17 BUN 11 Creatinine 0.5 Est GFR ( Amer) > 60 Est GFR (Non-Af Amer) > 60 Random Glucose 103 Calcium 9.3 Total Bilirubin 0.4 AST 20 ALT 18 Alkaline Phosphatase 56 Total Protein 7.0 Albumin 3.9 Globulin 3.0 Albumin/Globulin Ratio 1.3
[2017-01-05 05:37] LABS: GRAN # 6.44 (1.4-6.5); GRAN % 73.5 % (50.0-68.0); HEMOGLOBIN 13.6 gm/dL (12.0-16.0); LYMPH # 1.8 (1.2-3.4); LYMPH % 20.7 % (22.0-35.0); MEAN CELL VOLUME 95.5 fL (80.0-105.0); MEAN CORPUSCULAR HEMOGLOBIN 32.2 pg (25.0-35.0); MEAN CORPUSCULAR HGB CONC 33.7 g/dl (31.0-37.0); MEAN PLATELET VOLUME 10.6 fl (7.0-11.0); MONO # 0.5 (0.1-0.6); MONO % 5.8 % (1.0-6.0); PLATELET COUNT 256 10^3/uL (120.0-450.0); RBC 4.22 10^6/uL (3.5-6.1); RED CELL DISTRIBUTION WIDTH 12.5 % (11.5-14.5); WHITE BLOOD COUNT 8.8 10^3/ul (4.5-11.0)
[2017-01-05 05:47] LABS: ALB/GLOB RATIO 1.3 (1.1-1.8); ALBUMIN 4.2 g/dL (3.0-4.8); ALT/SGPT 29 U/L (7-56); AST/SGOT 25 U/L (15-39); BLOOD UREA NITROGEN 14 mg/dL (7-21); CALCIUM 9.4 mg/dL (8.4-10.5); GFR AFRICAN-AMERICAN > 60; GFR NON-AFRICAN AMERICAN > 60
--- NOTE | 2017-01-05 08:51 | CARD ---
APPROVED REPORT EKG Measurement Heart [id number] <Conclusion> Normal sinus rhythm Nonspecific ST abnormality Borderline ECG
--- NOTE | 2017-01-05 08:59 | CARD ---
APPROVED REPORT EXAM: Two-dimensional and M-mode echocardiogram with Doppler and color Doppler. INDICATION STROKE 2D DIMENSIONS Left Atrium (2D)4.1 (1.6-4.0cm)IVSd1.0 (0.7-1.1cm) LVDd4.3 (3.9-5.9cm)PWd1.1 (0.7-1.1cm) LVDs2.9 (2.5-4.0cm)FS (%) 32.4 % LVEF (%)61.0 (>50%) M-Mode DIMENSIONS Aortic Root2.90 (2.2-3.7cm)Aortic Cusp Exc.1.70 (1.5-2.0cm) Aortic Valve AoV Peak Zfjewmwx782.0cm/Kimberlee Peak GR.17mmHg Mitral Valve MV E Rvsdzkhq59.5cm/sMV A Hlubyczt88.3cm/sE/A ratio0.8 TDI Lateral E' Peak V12.10cm/sMedial E' Peak V7.12cm/sE/Lateral E'6.1 E/Medial E'10.3 Pulmonary Valve PV Peak Bxsaockn72.9cm/sPV Peak Grad.3mmHg Tricuspid Valve TR Peak Trueqnds784do/sRAP [id number] Peak Gr.22mmHg [id number] LEFT VENTRICLE The left ventricle is normal size. There is normal left ventricular wall thickness. The left ventricular function is normal. The left ventricular ejection fraction is within the normal range. There is normal LV segmental wall motion. RIGHT VENTRICLE The right ventricle is normal size. The right ventricular systolic function is normal. ATRIA The left atrium is mildly dilated. The right atrium size is normal. The interatrial septum is intact with no evidence for an atrial septal defect. AORTIC VALVE The aortic valve is mildly thickened. No aortic regurgitation is present. There is no aortic valvular stenosis. MITRAL VALVE The mitral valve is normal in structure. Mitral regurgitation is mild. TRICUSPID VALVE The tricuspid valve is normal in structure. There is mild tricuspid regurgitation. PULMONIC VALVE The pulmonary valve is normal in structure. GREAT VESSELS The aortic root is normal in size. The IVC is normal in size and collapses >50% with inspiration. PERICARDIAL EFFUSION There is no pleural effusion. There is no pericardial effusion. <Conclusion> Dilated LA. Normal LV size and systolic function. Mild MR and TR. No obvious cardiac source of embolus seen, but if clinical suspicion is high, consider [facility] imaging.
--- NOTE | 2017-01-05 09:20 | CT ---
PROCEDURE: CT HEAD WITHOUT CONTRAST. HISTORY: 24 hour s/p TPA COMPARISON: CT head 01/03/2017 and MRI brain 01/04/2017 TECHNIQUE: Axial computed tomography images were obtained through the head/brain without intravenous contrast. Radiation dose: Total exam DLP = 779.74 mGy-cm. This CT exam was performed using one or more of the following dose reduction techniques: Automated exposure control, adjustment of the mA and/or kV according to patient size, and/or use of iterative reconstruction technique. FINDINGS: HEMORRHAGE: No intracranial hemorrhage. BRAIN: No mass effect or edema. Small old left montoya radiata lacunar infarct. No evidence of acute infarct. VENTRICLES: Unremarkable. No hydrocephalus. CALVARIUM: Unremarkable. PARANASAL SINUSES: Unremarkable as visualized. No significant inflammatory changes. MASTOID AIR CELLS: Unremarkable as visualized. No inflammatory changes. OTHER FINDINGS: None. IMPRESSION: No intracranial mass, hemorrhage or evidence of acute infarct. Small old left montoya radiata lacunar infarct. No interval change. Preliminary interpretation of this examination was reported by [facility] at 04/30/2017. There is concurrence of this report with the preliminary interpretation.
--- NOTE | 2017-01-05 09:30 | CT ---
PROCEDURE: CT NECK WITHOUT CONTRAST HISTORY: stroke COMPARISON: None. TECHNIQUE: CT of the neck without intravenous contrast. Coronal and sagittal reformats generated. Radiation dose: DLP 382.76 mGy-cm This CT exam was performed using one or more of the following dose reduction techniques: Automated exposure control, adjustment of the mA and/or kV according to patient size, and/or use of iterative reconstruction technique. FINDINGS: NASOPHARYNX: Unremarkable. SUPRAHYOID NECK: Unremarkable oropharynx, oral cavity, parapharyngeal space and retropharyngeal space. INFRAHYOID NECK: Unremarkable larynx, hypopharynx, and supraglottic space. Vocal cords intact. MASS: None. GLANDS: Several small parotid nodules, likely intra parotid lymph nodes, bilaterally. Normal size thyroid gland, without nodule. LYMPH NODES: Shotty subcentimeter nodes are seen at multiple levels throughout the neck. No significantly enlarged cervical lymph nodes are identified. CERVICAL SPINE: No fracture. Degenerative disc disease at C5-6 and C6-7. Normal alignment maintained. OTHER FINDINGS: None. IMPRESSION: No acute abnormality. Nonspecific shotty subcentimeter cervical nodes are identified at multiple levels. Probable intra parotid lymph nodes bilaterally. Degenerative disc disease of the cervical spine. Preliminary interpretation of this examination was reported by [facility] at 10:21 p.m. on 01/04/2017. There is concurrence of this report with the preliminary interpretation.
--- NOTE | 2017-01-05 11:33 | CP.PCM.PN ---
Subjective - Date & Time of Evaluation Date of Evaluation: 01/05/17 Time of Evaluation: 11:26 - Subjective Subjective: Mrs. Victor was seen and examined today at bedside in the ICU. She said she felt well and her swallowing was improved. Yesterday, there was concern that she may have developed angioedema from the tPA, and she was given dexamethasone and Benadryl. She was evaluated by ENT and there was no edema noted. She continues to have significant weakness on the left side that is fluctuating and wqy-rb-edfcymtoos to the imaging findings. Objective - Vital Signs/Intake and Output Vital Signs (last 24 hours): Temp Pulse Resp BP Pulse Ox 98.3 F 87 15 132/80 100 01/05/17 00:00 01/05/17 00:00 01/05/17 00:00 01/05/17 00:00 01/05/17 00:00 Intake and Output: 01/05/17 01/05/17 06:59 18:59 Output Total 400 Balance -400 - Medications Medications: Current Medications Acetaminophen (Tylenol 325mg Tab) 650 mg PO Q6H PRN PRN Reason: Fever >100.4 F Aspirin (Aspirin Chewable) 81 mg PO DAILY [facility] Last Admin: 01/05/17 09:25 Dose: 81 mg Atorvastatin Calcium (Lipitor) 80 mg PO DIN [facility] Last Admin: 01/04/17 17:30 Dose: Not Given Pantoprazole Sodium (Protonix Inj) 40 mg IVP DAILY [facility] Last Admin: 01/05/17 09:25 Dose: 40 mg - Labs Labs: 01/05/17 04:45 01/05/17 04:45 PT 11.1 Seconds (9.9-11.8) 01/04/17 05:30 INR 1.03 (0.93-1.08) 01/04/17 05:30 APTT 25.7 Seconds (23.7-30.8) 01/04/17 05:30 - Neurological Exam Neurological Exam: Awake, CN II-XII Intact Neuro motor strength exam: Left Upper Extremity: 3 (Good tone, good distal movement and 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 Good tone and bulk), Right Lower Extremity: 5 Additional comments: NIHSS = 6 - Psychiatric Exam Psychiatric exam: Flat Affect - Skin Skin Exam: Dry, Intact, Normal Color, Warm Assessment and Plan (1) CVA (cerebral vascular accident) Assessment & Plan: Will start fluoxetine 20 mg daily and may titrate up to 40 mg if she tolerates it well. This may help her movement as per the FLAME trial. Continue aspirin 81 mg daily (I confirmed she is NOT allergic), Lipitor 80 mg daily and conservative management. Repeat CT head was okay. PT/OT eval and treatment. May transfer out of the ICU since she is neurologically improved and is clinically stable. Status: Ruled-out
--- NOTE | 2017-01-05 11:38 | CP.PCM.CON ---
History of Present Illness - History of Present Illness History of Present Illness: Reason for consult: Acute CVA S/p TPA 46 year old female with pMHX of HTN and two prior CVA 2012, and 2014 admitted with Acute CVA with left sided weakness S/P TPA also has had difficulty in speech on arrival as per pt, now has improvement in left upper extremity 's strength and speech but not in left lower extrmity.denies any chest pain, sob, palpitation PMhx. Two CVA 2012 and 2014 s.p TPa in 2012, HTN P Shx ; cholecystectomy, Hystrec avila, and right kidney surgery ( detail is unknown)\ SHx no smoking, No ETOH or substance abuse Fhx : fathe had AK at age 68. Past Patient History - Infectious Disease Hx of Infectious Diseases: None - Tetanus Immunizations Tetanus Immunization: Unknown - Past Social History Smoking Status: Never Smoked - CARDIAC Hx Hypertension: Yes - PULMONARY Hx Respiratory Disorders: No - NEUROLOGICAL HX Cerebrovascular Accident: Yes (L sided weakness; use of TPA) - HEENT Hx HEENT Problems: No - RENAL Hx Chronic Kidney Disease: No - ENDOCRINE/METABOLIC Hx Endocrine Disorders: No - HEMATOLOGICAL/ONCOLOGICAL Hx Blood Disorders: No - INTEGUMENTARY Hx Dermatological Problems: No - MUSCULOSKELETAL/RHEUMATOLOGICAL Hx Musculoskeletal Disorders: Yes (Hx of Rt Knee Surgery 2014.) Hx Falls: No - GASTROINTESTINAL Hx Gastrointestinal Disorders: Yes (Gastritis) - GENITOURINARY/GYNECOLOGICAL Hx Genitourinary Disorders: No - PSYCHIATRIC Hx Depression: No Hx Emotional Abuse: No Hx Physical Abuse: No Hx Substance Use: No - SURGICAL HISTORY Hx Surgeries: No Hx Cholecystectomy: Yes Hx Hysterectomy: Yes - ANESTHESIA Hx Anesthesia: No Hx Anesthesia Reactions: No Hx Malignant Hyperthermia: No Meds Allergies/Adverse Reactions: Allergies Allergy/AdvReac Type Severity Reaction Status Date / Time avocado Allergy Severe SWELLING Verified 01/04/17 03:58 aspirin Allergy Intermediate NAUSEA Verified 01/03/17 19:57 - Medications Medications: Current Medications Acetaminophen (Tylenol 325mg Tab) 650 mg PO Q6H PRN PRN Reason: Fever >100.4 F Aspirin (Aspirin Chewable) 81 mg PO DAILY [facility] Last Admin: 01/05/17 09:25 Dose: 81 mg Atorvastatin Calcium (Lipitor) 80 mg PO DIN [facility] Last Admin: 01/04/17 17:30 Dose: Not Given Pantoprazole Sodium (Protonix Inj) 40 mg IVP DAILY [facility] Last Admin: 01/05/17 09:25 Dose: 40 mg Physical Exam - Extremities Exam Additional comments: Left Upper extremity power is 3-4/5 and left lpwer extremity 1-2/5 Results - Vital Signs Recent Vital Signs: Last Vital Signs Temp 98.3 F 01/05/17 00:00 Pulse 87 01/05/17 00:00 Resp 15 01/05/17 00:00 BP 132/80 01/05/17 00:00 Pulse Ox 100 01/05/17 00:00 - Labs Result Diagrams: 01/05/17 04:45 01/05/17 04:45 Labs: Laboratory Results - last 24 hr 01/04/17 01/04/17 01/05/17 16:29 22:29 04:45 WBC 8.8 RBC 4.22 Hgb 13.6 Hct 40.3 MCV 95.5 MCH 32.2 MCHC 33.7 RDW 12.5 Plt Count 256 MPV 10.6 Gran % 73.5 H Lymph % (Auto) 20.7 L [place] % (Auto) 5.8 Eos % (Auto) 0.0 L Baso % (Auto) 0.0 Gran # 6.44 Lymph # 1.8 Canyon # 0.5 Eos # 0.0 Baso # 0.00 Sodium Potassium Chloride Carbon Dioxide Anion Gap BUN Creatinine Est GFR ( Amer) Est GFR (Non-Af Amer) POC Glucose (mg/dL) 118 H 106 Random Glucose Calcium Total Bilirubin AST ALT Alkaline Phosphatase Troponin I Total Protein Albumin Globulin Albumin/Globulin Ratio 01/05/17 01/05/17 04:45 10:12 WBC RBC Hgb Hct MCV MCH MCHC RDW Plt Count MPV Gran % Lymph % (Auto) Canyon % (Auto) Eos % (Auto) Baso % (Auto) Gran # Lymph # Canyon # Eos # Baso # Sodium 138 Potassium 4.2 Chloride 103 Carbon Dioxide 25 Anion Gap 14 BUN 14 Creatinine 0.5 Est GFR ( Amer) > 60 Est GFR (Non-Af Amer) > 60 POC Glucose (mg/dL) Random Glucose 105 Calcium 9.4 Total Bilirubin 0.7 AST 25 ALT 29 Alkaline Phosphatase 62 Troponin I < 0.01 Total Protein 7.6 Albumin 4.2 Globulin 3.4 Albumin/Globulin Ratio 1.3 Assessment & Plan - Assessment and Plan (Free Text) Assessment: HTNHTN Acute CVA with Left side weakness Left Lower extremity . Left lower extremity S/p TPA Plan: ASA, Statin, rehab Echo Lipid TSH, Haic thx
--- NOTE | 2017-01-05 14:03 | CP.PCM.PN ---
<SHEFALITRA - Last Filed: 01/05/17 17:31> Subjective - Date & Time of Evaluation Date of Evaluation: 01/05/17 Time of Evaluation: 08:30 - Subjective Subjective: Medicine Progress Note: Pt was seen and assessed at bedside. Previous weakness and difficulty speaking improving. Pt reported chest pain that radiates to her back. EKG unchanged from previous EKG. Tropinins ordered to be trended. EKG unchanged from previous EKG. Pt denies palpiatations, dyspnea, hemoptysis, headache or abdominal pain. Objective - Vital Signs/Intake and Output Vital Signs (last 24 hours): Temp Pulse Resp BP Pulse Ox 98.3 F 87 15 132/80 100 01/05/17 00:00 01/05/17 00:00 01/05/17 00:00 01/05/17 00:00 01/05/17 00:00 Intake and Output: 01/05/17 01/05/17 06:59 18:59 Output Total 400 Balance -400 - Medications Medications: Current Medications Acetaminophen (Tylenol 325mg Tab) 650 mg PO Q6H PRN PRN Reason: Fever >100.4 F Aspirin (Aspirin Chewable) 81 mg PO DAILY [facility] Last Admin: 01/05/17 09:25 Dose: 81 mg Atorvastatin Calcium (Lipitor) 80 mg PO DIN [facility] Last Admin: 01/04/17 17:30 Dose: Not Given Fluoxetine HCl (Prozac) 20 mg PO DAILY [facility] Last Admin: 01/05/17 11:57 Dose: 20 mg Pantoprazole Sodium (Protonix Inj) 40 mg IVP DAILY [facility] Last Admin: 01/05/17 09:25 Dose: 40 mg - Labs Labs: 01/05/17 04:45 01/05/17 04:45 PT 11.1 Seconds (9.9-11.8) 01/04/17 05:30 INR 1.03 (0.93-1.08) 01/04/17 05:30 APTT 25.7 Seconds (23.7-30.8) 01/04/17 05:30 - Constitutional Appears: No Acute Distress - Head Exam Head Exam: ATRAUMATIC - Eye Exam Eye Exam: EOMI, Normal appearance - ENT Exam ENT Exam: Mucous Membranes Moist, Normal Exam - Neck Exam Neck Exam: Full ROM - Respiratory Exam Respiratory Exam: Clear to Ausculation Bilateral, NORMAL BREATHING PATTERN. absent: Rales, Rhonchi, Wheezes - Cardiovascular Exam Cardiovascular Exam: REGULAR RHYTHM, +S1, +S2. absent: Murmur - GI/Abdominal Exam GI & Abdominal Exam: absent: Distended - Extremities Exam Extremities Exam: absent: Calf Tenderness, Pedal Edema - Neurological Exam Neurological Exam: Alert, Awake, Oriented x3 Neuro motor strength exam: Left Upper Extremity: 3, Right Upper Extremity: 5, Left Lower Extremity: 3, Right Lower Extremity: 5 - Psychiatric Exam Psychiatric exam: Normal Affect, Normal Mood - Skin Skin Exam: Dry, Intact, Normal Color, Warm Assessment and Plan - Assessment and Plan (Free Text) Assessment: 46yo female with a history of 2 prior CVA's, hypertension and hyperlipidemia was admitted for suspected CVA/TIA 1. Acute ischemic stroke -Condition ruled out, per neurology; all previous imaging studies negative for acute infarct -Start fluoxetine 20mg and titrate up to 40mg if pt movement improves -Continue aspirin, lipitor, PT/OT therapy -Head/Soft tissue neck CT were both unremarkable -Echo was unremarkable for embolism -Put on liquid puree diet and will advance to solids as tolerated -Continue neurochecks q2h -will consider moving from ICU -Psych consult 2. Chest pain -EKG unchanged -Cont aspirin and lipitor per cardiology -TSH, A1c and Lipid panel ordered 3. Gi/DVT Prophylaxis -Protonix/SCD's Patient seen and case discussed with attending physician, Dr. Quevedo. <Roberth Quevedo - Last Filed: 01/06/17 06:51> Objective - Vital Signs/Intake and Output Vital Signs (last 24 hours): Temp Pulse Resp BP Pulse Ox 97.6 F 71 14 156/87 H 100 01/06/17 04:00 01/06/17 06:10 01/06/17 06:10 01/06/17 06:01 01/06/17 06:10 Intake and Output: 01/05/17 01/06/17 18:59 06:59 Intake Total 1200 100 Output Total 850 0 Balance 350 100 - Medications Medications: Current Medications Aspirin (Aspirin Chewable) 81 mg PO DAILY [facility] Last Admin: 01/05/17 09:25 Dose: 81 mg Atorvastatin Calcium (Lipitor) 80 mg PO DIN [facility] Last Admin: 01/05/17 17:04 Dose: 80 mg Fluoxetine HCl (Prozac) 20 mg PO DAILY [facility] Last Admin: 01/05/17 11:57 Dose: 20 mg Pantoprazole Sodium (Protonix Inj) 40 mg IVP DAILY [facility] Last Admin: 01/05/17 09:25 Dose: 40 mg - Labs Labs: 01/06/17 05:30 01/05/17 04:45 PT 11.1 Seconds (9.9-11.8) 01/04/17 05:30 INR 1.03 (0.93-1.08) 01/04/17 05:30 APTT 25.7 Seconds (23.7-30.8) 01/04/17 05:30 Attending/Attestation - Attestation I have personally seen and examined this patient.: Yes I have fully participated in the care of the patient.: Yes I have reviewed all pertinent clinical information, including history, physical exam and plan: Yes Notes (Text): 01/05/17 46 year old female with past medical history of prior CVAs, hypertension and dyslipidemia who presented with suspected stroke with symptoms of left sided weakness. She received TPA on admission and was admitted to the ICU. CT head showed age indeterminate lacunar infarct in the left basal ganglia. CTA and MRA were negative. MRI brain showed no acute intracranial abnormality, no evidence of acute infarct, showed an old lacunar infarction in the left montoya radiata. Echocardiogram and repeat CT head were reviewed. She is on aspirin and lipitor. She is being followed by neurology as well. Continue with physical therapy. Today she complains of chest pain. Serial cardiac enzymes are ordered and cardiology evaluation is requested. Psychiatry evaluation was requested as well as patient reports history of depression. Roberth Quevedo MD Hospitalist.
[2017-01-05 16:44] LABS: HDL CHOLESTEROL 56 mg/dL (29-60)
[2017-01-05 16:55] LABS: LDL CHOLESTEROL 191 mg/dL (0-129)
[2017-01-05] MEDS ORDERED: Acetaminophen 650mg/20.3ml solution UD PO STA (19:19)
[2017-01-06 06:25] LABS: BASO # 0.03 K/mm3 (0.0-2.0); BASO % 0.4 % (0.0-3.0); EOS # 0.1 (0.0-0.7); EOS % 1.7 % (1.5-5.0); GRAN # 3.02 (1.4-6.5); HEMOGLOBIN 13.2 gm/dL (12.0-16.0); LYMPH # 3.3 (1.2-3.4); LYMPH % 46.9 % (22.0-35.0); MEAN CELL VOLUME 96.3 fL (80.0-105.0); MEAN CORPUSCULAR HEMOGLOBIN 32.4 pg (25.0-35.0); MEAN CORPUSCULAR HGB CONC 33.6 g/dl (31.0-37.0); MEAN PLATELET VOLUME 10.6 fl (7.0-11.0); MONO # 0.6 (0.1-0.6); PLATELET COUNT 227 10^3/uL (120.0-450.0); RBC 4.08 10^6/uL (3.5-6.1); RED CELL DISTRIBUTION WIDTH 12.6 % (11.5-14.5)
[2017-01-06 06:50] LABS: ALB/GLOB RATIO 1.1 (1.1-1.8); ALBUMIN 3.9 g/dL (3.0-4.8); ALT/SGPT 42 U/L (7-56); AST/SGOT 36 U/L (15-39); BLOOD UREA NITROGEN 17 mg/dL (7-21); CALCIUM 9.1 mg/dL (8.4-10.5); GFR AFRICAN-AMERICAN > 60; GFR NON-AFRICAN AMERICAN > 60
[2017-01-06 07:21] LABS: TROPONIN I < 0.01 ng/mL
--- NOTE | 2017-01-06 09:26 | CP.PCM.CON ---
History of Present Illness - History of Present Illness History of Present Illness: shortly patient is 46 year old female, reported h/o depression/anxiety , denied h/o psych admissions, denied h/o suicidal attempts, was admitted to the ICU for evaluation of possible CVA, psych consult was called for med management and depression. pt was seen and examined, discussed with RN, pt presented to be calm, cooperative, socially appropriate. fair ADLs. pt said that she suffers from depression and she was on prozac and xanax prescribed initially by her psychiatrist, then her psychiatrist was not longer working in the clinic and pt's PMD and neurologist continued all of her meds. Pt said she fills meds in [employer] , this wrier called and confirmed meds: in regards of psychotropic medications: lexapro 10mg po daily Mirtazapine 30mg po hs xanax 0.5mg daily Gabapentin 400mg po tid medical team started pt on prozac, will keep it as it is, will not resume lexapro, mirtazapine could give weight gain, will not resume it, xanax could be resumed. pt said that she has h/o depression, pt reported that her depression is "not that bad", pt said that she does not want to harm self or others, pt has three kids of her own and one adopted kid, pt said the youngest is 7yo, at present moment pt's sister is taking care of them "they are good, everything is fine". Pt denied v/a/t hallucinations, denied paranoid ideation, pt does not present to be psychotic. pt denied using drugs, denied smoking, denied drinking alcohol. in regards of medical issues, pt said "i feel little better". Past psychiatric h/o: denied admissions to the psych unit, denied suicidal attempts. Family h/o: pt's daughter was diagnosed with schizophrenia, "I am worried about her, now she is in [place] psychiatric unit". Medical h/o: gastritis, hypertension, hysterectomy, cholecystectomy and CVA. as per staff pt is calm, cooperative, at times tearful, no agitation, pt did not verbalized thoughts of harming self or others. MSE: pt is alert and oriented in self, time and place, speech was underproductive, mood "I am little better", affect was tearful at times, mood congruent, thought process is coherent and goal directed, thought content: pt denied v/t/a hallucinations, denied paranoid ideation, pt does not present to be psychotic, pt adamantly denied thoughts of harming self or others. Insight and judgment are fair, impulses are well predictable. Impression: r/o MDD r/o mood disorder due to a GMC (general medical condition) pt has multiple medical issues (please see above). Plan: meds were confirmed lexapro will be not resumed remeron will be not resumed medical team started pt on prozac, will continue it, 20mg po daily for depression and anxiety will give Sonata hs for insomnia will continue neurontin this selling underwriter will f/u on this pt and advise accordingly. Past Patient History - Infectious Disease Hx of Infectious Diseases: None - Tetanus Immunizations Tetanus Immunization: Unknown - Past Social History Smoking Status: Never Smoked - CARDIAC Hx Hypertension: Yes - PULMONARY Hx Respiratory Disorders: No - NEUROLOGICAL HX Cerebrovascular Accident: Yes (L sided weakness; use of TPA) - HEENT Hx HEENT Problems: No - RENAL Hx Chronic Kidney Disease: No - ENDOCRINE/METABOLIC Hx Endocrine Disorders: No - HEMATOLOGICAL/ONCOLOGICAL Hx Blood Disorders: No - INTEGUMENTARY Hx Dermatological Problems: No - MUSCULOSKELETAL/RHEUMATOLOGICAL Hx Musculoskeletal Disorders: Yes (Hx of Rt Knee Surgery 2015.) Hx Falls: No - GASTROINTESTINAL Hx Gastrointestinal Disorders: Yes (Gastritis) - GENITOURINARY/GYNECOLOGICAL Hx Genitourinary Disorders: No - PSYCHIATRIC Hx Depression: No Hx Emotional Abuse: No Hx Physical Abuse: No Hx Substance Use: No - SURGICAL HISTORY Hx Surgeries: No Hx Cholecystectomy: Yes Hx Hysterectomy: Yes - ANESTHESIA Hx Anesthesia: No Hx Anesthesia Reactions: No Hx Malignant Hyperthermia: No Meds Allergies/Adverse Reactions: Allergies Allergy/AdvReac Type Severity Reaction Status Date / Time avocado Allergy Severe SWELLING Verified 01/04/17 03:58 aspirin Allergy Intermediate NAUSEA Verified 01/03/17 19:57 - Medications Medications: Current Medications Aspirin (Aspirin Chewable) 81 mg PO DAILY [facility] Last Admin: 01/05/17 09:25 Dose: 81 mg Atorvastatin Calcium (Lipitor) 80 mg PO DIN [facility] Last Admin: 01/05/17 17:04 Dose: 80 mg Fluoxetine HCl (Prozac) 20 mg PO DAILY [facility] Last Admin: 01/05/17 11:57 Dose: 20 mg Pantoprazole Sodium (Protonix Inj) 40 mg IVP DAILY [facility] Last Admin: 01/05/17 09:25 Dose: 40 mg Results - Vital Signs Recent Vital Signs: Last Vital Signs Temp 97.6 F 01/06/17 04:00 Pulse 71 01/06/17 06:10 Resp 14 01/06/17 06:10 BP 156/87 H 01/06/17 06:01 Pulse Ox 100 01/06/17 06:10 - Labs Result Diagrams: 01/06/17 05:30 01/06/17 05:30 Labs: Laboratory Results - last 24 hr 01/05/17 01/05/17 01/05/17 10:12 10:12 13:56 WBC RBC Hgb Hct MCV MCH MCHC RDW Plt Count MPV Gran % Lymph % (Auto) [place] % (Auto) Eos % (Auto) Baso % (Auto) Gran # Lymph # [place] # Eos # Baso # Sodium Potassium Chloride Carbon Dioxide Anion Gap BUN Creatinine Est GFR ( Amer) Est GFR (Non-Af Amer) Random Glucose Hemoglobin A1c 5.6 Calcium Total Bilirubin AST ALT Alkaline Phosphatase Troponin I < 0.01 Total Protein Albumin Globulin Albumin/Globulin Ratio Triglycerides 75 Cholesterol 255 H LDL Cholesterol Direct 191 H HDL Cholesterol 56 TSH 3rd Generation 01/05/17 01/05/17 01/06/17 13:56 18:42 05:30 WBC 7.0 D RBC 4.08 Hgb 13.2 Hct 39.3 MCV 96.3 MCH 32.4 MCHC 33.6 RDW 12.6 Plt Count 227 MPV 10.6 Gran % 43.0 L Lymph % (Auto) 46.9 H [place] % (Auto) 8.0 H Eos % (Auto) 1.7 Baso % (Auto) 0.4 Gran # 3.02 Lymph # 3.3 [place] # 0.6 Eos # 0.1 Baso # 0.03 Sodium Potassium Chloride Carbon Dioxide Anion Gap BUN Creatinine Est GFR ( Amer) Est GFR (Non-Af Amer) Random Glucose Hemoglobin A1c Calcium Total Bilirubin AST ALT Alkaline Phosphatase Troponin I < 0.01 Total Protein Albumin Globulin Albumin/Globulin Ratio Triglycerides Cholesterol LDL Cholesterol Direct HDL Cholesterol TSH 3rd Generation 1.41 01/06/17 05:30 WBC RBC Hgb Hct MCV MCH MCHC RDW Plt Count MPV Gran % Lymph % (Auto) [place] % (Auto) Eos % (Auto) Baso % (Auto) Gran # Lymph # [place] # Eos # Baso # Sodium 138 Potassium 3.7 Chloride 102 Carbon Dioxide 28 Anion Gap 12 BUN 17 Creatinine 0.6 Est GFR ( Amer) > 60 Est GFR (Non-Af Amer) > 60 Random Glucose 96 Hemoglobin A1c Calcium 9.1 Total Bilirubin 1.1 AST 36 ALT 42 Alkaline Phosphatase 58 Troponin I < 0.01 Total Protein 7.2 Albumin 3.9 Globulin 3.4 Albumin/Globulin Ratio 1.1 Triglycerides Cholesterol LDL Cholesterol Direct HDL Cholesterol TSH 3rd Generation
--- NOTE | 2017-01-06 10:16 | CP.PCM.PN ---
Subjective - Date & Time of Evaluation Date of Evaluation: 01/06/17 Time of Evaluation: 09:15 - Subjective Subjective: Denies Chest pain, but C/o weakness in Left upper extremity and more in left lower extremity. Objective - Vital Signs/Intake and Output Vital Signs (last 24 hours): Temp Pulse Resp BP Pulse Ox 98.7 F 81 16 128/81 100 01/06/17 08:00 01/06/17 09:20 01/06/17 09:20 01/06/17 08:00 01/06/17 09:20 Intake and Output: 01/06/17 01/06/17 06:59 18:59 Intake Total 100 Output Total 0 Balance 100 - Medications Medications: Current Medications Alprazolam (Xanax) 0.5 mg PO BID PRN; Protocol PRN Reason: Anxiety Aspirin (Aspirin Chewable) 81 mg PO DAILY [facility] Last Admin: 01/06/17 09:08 Dose: 81 mg Atorvastatin Calcium (Lipitor) 80 mg PO DIN [facility] Last Admin: 01/05/17 17:04 Dose: 80 mg Fluoxetine HCl (Prozac) 20 mg PO DAILY [facility] Last Admin: 01/06/17 09:09 Dose: 20 mg Gabapentin (Neurontin) 400 mg PO TID [facility] PRN Reason: Protocol Pantoprazole Sodium (Protonix Inj) 40 mg IVP DAILY [facility] Last Admin: 01/06/17 09:08 Dose: 40 mg Zaleplon (Sonata) 5 mg PO HS PRN PRN Reason: Insomnia - Labs Labs: 01/06/17 05:30 01/06/17 05:30 PT 11.1 Seconds (9.9-11.8) 01/04/17 05:30 INR 1.03 (0.93-1.08) 01/04/17 05:30 APTT 25.7 Seconds (23.7-30.8) 01/04/17 05:30 - Neurological Exam Neuro motor strength exam: Left Upper Extremity: 4, Right Upper Extremity: 5, Left Lower Extremity: 2/1, Right Lower Extremity: 5 Assessment and Plan - Assessment and Plan (Free Text) Assessment: Acute CVA. S/p TPA recurrent CVA HTN hyperlipidemia Plan: ASA/Statin Echo rehab No evidence of arrythmia [facility] anticoagulation B/c of recurrent CVA? will discuss with Neuro. thx
--- NOTE | 2017-01-06 18:12 | CP.PCM.PN ---
<TRA MEEHAN - Last Filed: 01/06/17 18:01> Subjective - Date & Time of Evaluation Date of Evaluation: 01/06/17 Time of Evaluation: 08:05 - Subjective Subjective: Medicine Progress Note: Pt was seen and assessed at bedside. Pt reports improvement in chest pain from yesterday and has no new complaints. Pt denies palpiatations, SOB, headache, changes in vision or abdominal pain. Objective - Vital Signs/Intake and Output Vital Signs (last 24 hours): Temp Pulse Resp BP Pulse Ox 98.8 F 82 20 124/75 98 01/06/17 17:48 01/06/17 17:48 01/06/17 17:48 01/06/17 17:48 01/06/17 11:20 Intake and Output: 01/06/17 01/06/17 06:59 18:59 Intake Total 100 Output Total 0 Balance 100 - Medications Medications: Current Medications Alprazolam (Xanax) 0.5 mg PO BID PRN; Protocol PRN Reason: Anxiety Aspirin (Aspirin Chewable) 81 mg PO DAILY [facility] Last Admin: 01/06/17 09:08 Dose: 81 mg Atorvastatin Calcium (Lipitor) 80 mg PO DIN [facility] Last Admin: 01/06/17 17:10 Dose: 80 mg Fluoxetine HCl (Prozac) 20 mg PO DAILY [facility] Last Admin: 01/06/17 09:09 Dose: 20 mg Gabapentin (Neurontin) 400 mg PO TID [facility] PRN Reason: Protocol Last Admin: 01/06/17 17:11 Dose: 400 mg Lisinopril (Zestril) 20 mg PO DAILY [facility] Last Admin: 01/06/17 15:32 Dose: 20 mg Pantoprazole Sodium (Protonix Inj) 40 mg IVP DAILY [facility] Last Admin: 01/06/17 09:08 Dose: 40 mg Zaleplon (Sonata) 5 mg PO HS PRN PRN Reason: Insomnia - Labs Labs: 01/06/17 05:30 01/06/17 05:30 PT 11.1 Seconds (9.9-11.8) 01/04/17 05:30 INR 1.03 (0.93-1.08) 01/04/17 05:30 APTT 25.7 Seconds (23.7-30.8) 01/04/17 05:30 - Constitutional Appears: No Acute Distress - Head Exam Head Exam: NORMAL INSPECTION, NORMOCEPHALIC - Eye Exam Eye Exam: EOMI, Normal appearance - ENT Exam ENT Exam: Mucous Membranes Moist, Normal Exam - Neck Exam Neck Exam: Full ROM - Respiratory Exam Respiratory Exam: Clear to Ausculation Bilateral, NORMAL BREATHING PATTERN. absent: Rales, Rhonchi, Wheezes - Cardiovascular Exam Cardiovascular Exam: REGULAR RHYTHM, +S1, +S2. absent: Murmur - GI/Abdominal Exam GI & Abdominal Exam: absent: Distended, Tenderness - Extremities Exam Extremities Exam: absent: Calf Tenderness, Pedal Edema - Neurological Exam Neurological Exam: Alert, Awake - Psychiatric Exam Psychiatric exam: Normal Affect, Normal Mood Assessment and Plan - Assessment and Plan (Free Text) Assessment: 46yo female with a history of 2 prior CVA's, hypertension and hyperlipidemia was admitted for suspected CVA/TIA 1. Acute ischemic stroke -psych recommended to continue Prozac and neurontin -Continue aspirin and lipitor -PT/OT recommended acute rehab placement -Per cardio note, Dr. Hernandez will discuss possible group home anticoagulation therapy with neurologist -Pureed diet not tolerated by pt and was placed back on full liquids diet -Continue neurochecks q2h -[facility] wont accept outpatient d/t medicaid coverage 2. Chest pain -Cont aspirin and lipitor 3. Insomnia -diagnosis on psych consult -start sonata, per psych 4. Gi/DVT Prophylaxis -Protonix/SCD's Patient seen and case discussed with attending physician, Dr. Quevedo. <Roberth Quevedo - Last Filed: 01/07/17 06:33> Objective - Vital Signs/Intake and Output Vital Signs (last 24 hours): Temp Pulse Resp BP Pulse Ox 98.2 F 69 18 110/64 97 01/07/17 04:00 01/07/17 05:14 01/07/17 04:00 01/07/17 04:00 01/07/17 04:00 Intake and Output: 01/06/17 01/07/17 18:59 06:59 Intake Total 1620 Output Total 1500 Balance 120 - Medications Medications: Current Medications Alprazolam (Xanax) 0.5 mg PO BID PRN; Protocol PRN Reason: Anxiety Aspirin (Aspirin Chewable) 81 mg PO DAILY [facility] Last Admin: 01/06/17 09:08 Dose: 81 mg Atorvastatin Calcium (Lipitor) 80 mg PO DIN [facility] Last Admin: 01/06/17 17:10 Dose: 80 mg Fluoxetine HCl (Prozac) 20 mg PO DAILY [facility] Last Admin: 01/06/17 09:09 Dose: 20 mg Gabapentin (Neurontin) 400 mg PO TID [facility] PRN Reason: Protocol Last Admin: 01/06/17 17:11 Dose: 400 mg Lisinopril (Zestril) 20 mg PO DAILY [facility] Last Admin: 01/06/17 15:32 Dose: 20 mg Pantoprazole Sodium (Protonix Inj) 40 mg IVP DAILY [facility] Last Admin: 01/06/17 09:08 Dose: 40 mg Zaleplon (Sonata) 5 mg PO HS PRN PRN Reason: Insomnia - Labs Labs: 01/06/17 05:30 01/06/17 05:30 PT 11.1 Seconds (9.9-11.8) 01/04/17 05:30 INR 1.03 (0.93-1.08) 01/04/17 05:30 APTT 25.7 Seconds (23.7-30.8) 01/04/17 05:30 Attending/Attestation - Attestation I have personally seen and examined this patient.: Yes I have fully participated in the care of the patient.: Yes I have reviewed all pertinent clinical information, including history, physical exam and plan: Yes Notes (Text): 01/06/17 46 year old female with past medical history of prior CVAs, hypertension and dyslipidemia who presented with suspected stroke with symptoms of left sided weakness. She received TPA on admission and was admitted to the ICU. CT head showed age indeterminate lacunar infarct in the left basal ganglia. CTA and MRA were negative. MRI brain showed no acute intracranial abnormality, no evidence of acute infarct, showed an old lacunar infarction in the left montoya radiata. Echocardiogram and repeat CT head were reviewed. She is being followed by neurology and currently on aspirin and lipitor. PT is following as well who is recommending acute rehab. Will discuss with manager case management / social services designee. Her chest pain has improved. Serial cardiac enzymes were negative and ACS was ruled out. Cardiology is following. Psychiatry evaluation was appreciated for depression. Roberth Quevedo MD Hospitalist.
[2017-01-07 07:26] LABS: BASO # 0.02 K/mm3 (0.0-2.0); BASO % 0.3 % (0.0-3.0); EOS # 0.2 (0.0-0.7); EOS % 1.9 % (1.5-5.0); GRAN # 4.52 (1.4-6.5); GRAN % 56.9 % (50.0-68.0); HEMOGLOBIN 13.6 gm/dL (12.0-16.0); LYMPH # 2.6 (1.2-3.4); LYMPH % 33.3 % (22.0-35.0); MEAN CELL VOLUME 96.2 fL (80.0-105.0); MEAN CORPUSCULAR HEMOGLOBIN 32.1 pg (25.0-35.0); MEAN CORPUSCULAR HGB CONC 33.3 g/dl (31.0-37.0); MEAN PLATELET VOLUME 10.8 fl (7.0-11.0); MONO # 0.6 (0.1-0.6); MONO % 7.6 % (1.0-6.0); PLATELET COUNT 234 10^3/uL (120.0-450.0); RBC 4.24 10^6/uL (3.5-6.1); RED CELL DISTRIBUTION WIDTH 12.5 % (11.5-14.5); WHITE BLOOD COUNT 7.9 10^3/ul (4.5-11.0)
[2017-01-07 07:59] LABS: ALB/GLOB RATIO 1.2 (1.1-1.8); ALBUMIN 3.9 g/dL (3.0-4.8); ALT/SGPT 44 U/L (7-56); AST/SGOT 31 U/L (15-39); BLOOD UREA NITROGEN 14 mg/dL (7-21); CALCIUM 9.3 mg/dL (8.4-10.5); GFR AFRICAN-AMERICAN > 60; GFR NON-AFRICAN AMERICAN > 60
--- NOTE | 2017-01-07 09:21 | CP.PCM.PN ---
Subjective - Date & Time of Evaluation Date of Evaluation: 01/07/17 Time of Evaluation: 07:30 - Subjective Subjective: Denies Chest pain weakness on left Side Upper extremity < lower extremity. Objective - Vital Signs/Intake and Output Vital Signs (last 24 hours): Temp Pulse Resp BP Pulse Ox 98.2 F 69 18 110/64 97 01/07/17 04:00 01/07/17 05:14 01/07/17 04:00 01/07/17 04:00 01/07/17 04:00 Intake and Output: 01/07/17 01/07/17 06:59 18:59 Intake Total 1620 Output Total 1500 Balance 120 - Medications Medications: Current Medications Alprazolam (Xanax) 0.5 mg PO BID PRN; Protocol PRN Reason: Anxiety Aspirin (Aspirin Chewable) 81 mg PO DAILY [facility] Last Admin: 01/06/17 09:08 Dose: 81 mg Atorvastatin Calcium (Lipitor) 80 mg PO DIN [facility] Last Admin: 01/06/17 17:10 Dose: 80 mg Fluoxetine HCl (Prozac) 20 mg PO DAILY [facility] Last Admin: 01/06/17 09:09 Dose: 20 mg Gabapentin (Neurontin) 400 mg PO TID [facility] PRN Reason: Protocol Last Admin: 01/06/17 17:11 Dose: 400 mg Lisinopril (Zestril) 20 mg PO DAILY [facility] Last Admin: 01/06/17 15:32 Dose: 20 mg Pantoprazole Sodium (Protonix Inj) 40 mg IVP DAILY [facility] Last Admin: 01/06/17 09:08 Dose: 40 mg Zaleplon (Sonata) 5 mg PO PRN PRN Reason: Insomnia - Labs Labs: 01/07/17 06:20 01/07/17 06:20 PT 11.1 Seconds (9.9-11.8) 01/04/17 05:30 INR 1.03 (0.93-1.08) 01/04/17 05:30 APTT 25.7 Seconds (23.7-30.8) 01/04/17 05:30 - Constitutional Appears: Non-toxic - Head Exam Head Exam: ATRAUMATIC - Eye Exam Eye Exam: Normal appearance - ENT Exam ENT Exam: Mucous Membranes Dry - Respiratory Exam Respiratory Exam: Chest Wall Tenderness - Cardiovascular Exam Cardiovascular Exam: REGULAR RHYTHM - GI/Abdominal Exam GI & Abdominal Exam: Soft - Rectal Exam Rectal Exam: Deferred - Neurological Exam Neuro motor strength exam: Left Upper Extremity: 4, Right Upper Extremity: 5, Left Lower Extremity: 2/1, Right Lower Extremity: 5 Assessment and Plan - Assessment and Plan (Free Text) Assessment: Acute CVa with left sided weakness Hx of CVa in the past No evidence of ACS HTN Hyperlipedimia ECHO 01/04/2017 .. Normal LV Fx. Mild MR/TR No thrombus noted. Plan: continue Statin/Asda/ lisinopril Rehab neuro F/u
--- NOTE | 2017-01-07 13:04 | CP.PCM.CON ---
History of Present Illness - History of Present Illness History of Present Illness: shortly pt initially was admitted to the ICU for evaluation of possible CVA, psych consult was called for med management and depression, pt was downdraded to the 2nd floor. pt was seen and examined, discussed with RN, pt presented to be calm, cooperative, socially appropriate. fair ADLs, this designer writer utilized staff for translation, pt is Swedish speaking. meds were confirmed by pt's pharmacy yesterday, please see this designer writer note for more detailed information. pt tolerates prozac well, pt did not ask for Sonata and said "I didn't sleep last nigh", pt was educated about changes in her meds, risk/benefits and alternatives explained to the pt. pt said that she is feeling better, but c/o "a lot of pain in my arm, it gives me a weakness". pt denied thoughts of harming self or others, denied feeling of hopelessness or helplessness. d/w , medical team concerned about pt's presentation, no new stroke but pt is weak, asked to r/o conversional disorder, somatiform disorder. As per PT, pt has weakness and recommended OMAIRA. psychiatric dx is dx of exclusion, will f/ u on that. MSE: pt is alert and oriented in self, time and place, speech was normal rate, tone, quality and quantity, mood "I am little better", affect was more reactive today, mood congruent, thought process is coherent and goal directed, thought content: pt denied v/t/a hallucinations, denied paranoid ideation, pt does not present to be psychotic, pt adamantly denied thoughts of harming self or others. Insight and judgment are fair, impulses are well predictable. Impression: r/o MDD r/o mood disorder due to a GMC (general medical condition) pt has multiple medical issues (please see above). r/o somatiform disorder (but unlikely) Plan: medical team started pt on prozac, will continue it, 20mg po daily for depression and anxiety will give Sonata hs for insomnia will continue neurontin this designer writer will f/u on this pt and advise accordingly. d/w Past Patient History - Infectious Disease Hx of Infectious Diseases: None - Tetanus Immunizations Tetanus Immunization: Unknown - Past Social History Smoking Status: Never Smoked - CARDIAC Hx Hypertension: Yes - PULMONARY Hx Respiratory Disorders: No - NEUROLOGICAL HX Cerebrovascular Accident: Yes (L sided weakness; use of TPA) - HEENT Hx HEENT Problems: No - RENAL Hx Chronic Kidney Disease: No - ENDOCRINE/METABOLIC Hx Endocrine Disorders: No - HEMATOLOGICAL/ONCOLOGICAL Hx Blood Disorders: No - INTEGUMENTARY Hx Dermatological Problems: No - MUSCULOSKELETAL/RHEUMATOLOGICAL Hx Musculoskeletal Disorders: Yes (Hx of Rt Knee Surgery 2015.) Hx Falls: No - GASTROINTESTINAL Hx Gastrointestinal Disorders: Yes (Gastritis) - GENITOURINARY/GYNECOLOGICAL Hx Genitourinary Disorders: No - PSYCHIATRIC Hx Depression: No Hx Emotional Abuse: No Hx Physical Abuse: No Hx Substance Use: No - SURGICAL HISTORY Hx Surgeries: No Hx Cholecystectomy: Yes Hx Hysterectomy: Yes - ANESTHESIA Hx Anesthesia: No Hx Anesthesia Reactions: No Hx Malignant Hyperthermia: No Meds Allergies/Adverse Reactions: Allergies Allergy/AdvReac Type Severity Reaction Status Date / Time avocado Allergy Severe SWELLING Verified 01/04/17 03:58 aspirin Allergy Intermediate NAUSEA Verified 01/03/17 19:57 - Medications Medications: Current Medications Alprazolam (Xanax) 0.5 mg PO BID PRN; Protocol PRN Reason: Anxiety Aspirin (Aspirin Chewable) 81 mg PO DAILY [facility] Last Admin: 01/07/17 09:52 Dose: 81 mg Atorvastatin Calcium (Lipitor) 80 mg PO DIN [facility] Last Admin: 01/06/17 17:10 Dose: 80 mg Fluoxetine HCl (Prozac) 20 mg PO DAILY [facility] Last Admin: 01/07/17 09:52 Dose: 20 mg Gabapentin (Neurontin) 400 mg PO TID [facility] PRN Reason: Protocol Last Admin: 01/07/17 09:53 Dose: 400 mg Lisinopril (Zestril) 20 mg PO DAILY [facility] Last Admin: 01/07/17 09:53 Dose: 20 mg Pantoprazole Sodium (Protonix Inj) 40 mg IVP DAILY [facility] Last Admin: 01/07/17 09:56 Dose: 40 mg Zaleplon (Sonata) 5 mg PO HS [facility] Results - Vital Signs Recent Vital Signs: Last Vital Signs Temp 98.2 F 01/07/17 04:00 Pulse 84 01/07/17 10:00 Resp 18 01/07/17 04:00 BP 116/72 01/07/17 09:53 Pulse Ox 97 01/07/17 04:00 - Labs Result Diagrams: 01/07/17 06:20 01/07/17 06:20 Labs: Laboratory Results - last 24 hr 01/07/17 01/07/17 06:20 06:20 WBC 7.9 RBC 4.24 Hgb 13.6 Hct 40.8 MCV 96.2 MCH 32.1 MCHC 33.3 RDW 12.5 Plt Count 234 MPV 10.8 Gran % 56.9 Lymph % (Auto) 33.3 [place] % (Auto) 7.6 H Eos % (Auto) 1.9 Baso % (Auto) 0.3 Gran # 4.52 Lymph # 2.6 [place] # 0.6 Eos # 0.2 Baso # 0.02 Sodium 137 Potassium 3.9 Chloride 101 Carbon Dioxide 27 Anion Gap 13 BUN 14 Creatinine 0.5 Est GFR ( Amer) > 60 Est GFR (Non-Af Amer) > 60 Random Glucose 90 Calcium 9.3 Total Bilirubin 0.9 AST 31 ALT 44 Alkaline Phosphatase 60 Total Protein 7.2 Albumin 3.9 Globulin 3.3 Albumin/Globulin Ratio 1.2
--- NOTE | 2017-01-07 14:26 | CT ---
PROCEDURE: CT HEAD WITHOUT CONTRAST. HISTORY: STROKE COMPARISON: None available. TECHNIQUE: Axial computed tomography images were obtained through the head/brain without intravenous contrast. Radiation dose: Total exam DLP = 689.11 mGy-cm. This CT exam was performed using one or more of the following dose reduction techniques: Automated exposure control, adjustment of the mA and/or kV according to patient size, and/or use of iterative reconstruction technique. FINDINGS: HEMORRHAGE: No intracranial hemorrhage. BRAIN: No mass effect or edema. Small old left basal ganglia lacunar infarct, likely anterior limb internal capsule. No evidence of acute infarct. VENTRICLES: Unremarkable. No hydrocephalus. CALVARIUM: Unremarkable. PARANASAL SINUSES: Unremarkable as visualized. No significant inflammatory changes. MASTOID AIR CELLS: Unremarkable as visualized. No inflammatory changes. OTHER FINDINGS: None. IMPRESSION: No evidence of acute infarct. Small old left basal ganglia lacunar infarct. No intracranial hemorrhage. Results of this examination was discussed, by telephone, with the charge nurse, Aracely at 2:17 p.m. on 01/07/2017.
--- NOTE | 2017-01-07 14:32 | CP.PCM.PCO ---
<DAMIEN LAFARO - Last Filed: 01/07/17 16:53> Physician Communication Note - Physician Communication Note Physician Communication Note: Please see attached section for rapid response note <Colleen Alfaro - Last Filed: 01/12/17 10:53> Addendum Addendum: 01/12/17 10:45 pt was initially admitted for left arm numbness and apin suspected cva . was sitting in the chair and suddenly became dizzy and while being helped to the bed lost conciousness pt vital sings and breathing was normal pulse ox was normal, pthas rceieved multiple insurance legal assistant deprssants meds . initially code stroke was called and ct performed which was negative , neulogist was consulted , pt was given romazicon to revert the effect of meds gabapentene but pt did not reponded , ng tube was placed in and pt moved her face sisde ways and coughed . pt was placed on monitor .dr prince was informed . and dr das was called by to evaluate the pt for icu transfer.
[2017-01-07 14:46] LABS: ARTERIAL BLOOD GAS HCO3 24.7 mmol/L (21-28); ARTERIAL BLOOD GAS HEMOGLOBIN 14.5 g/dL (11.7-17.4); ARTERIAL BLOOD GAS O2 CAPACITY 20.2 mL/dl (16-24); ARTERIAL BLOOD GAS O2 CONTENT 19.7 ML/dl (15-23); ARTERIAL BLOOD GAS O2 SAT 97.5 % (95-98); ARTERIAL BLOOD GAS PCO2 34 mm/Hg (35-45); ARTERIAL BLOOD GAS PH 7.47 (7.35-7.45); ARTERIAL BLOOD GAS TCO2 25.7 mmol.L (22-28)
[2017-01-07] MEDS ORDERED: Flumazenil 0.1 mg/ml Inj (5ml) IVP STA (15:14)
[2017-01-07 17:20] LABS: TROPONIN I < 0.01 ng/mL
--- NOTE | 2017-01-07 18:20 | CP.PCM.PN ---
<TRA MEEHAN - Last Filed: 01/07/17 18:14> Subjective - Date & Time of Evaluation Date of Evaluation: 01/07/17 Time of Evaluation: 11:00 - Subjective Subjective: Medicine Progress Note: Pt was seen and assessed at bedside. Pt reports improvement in chest pain from yesterday but no improvement in her left sided weakness. Otherwise has no new complaints at this time. Pt denies SOB, palpitations, headache, changes in vision, fever, dizziness or abdominal pain. Objective - Vital Signs/Intake and Output Vital Signs (last 24 hours): Temp Pulse Resp BP Pulse Ox 99 F 104 H 20 153/84 H 97 01/07/17 18:10 01/07/17 18:10 01/07/17 18:10 01/07/17 18:10 01/07/17 04:00 Intake and Output: 01/07/17 01/07/17 06:59 18:59 Intake Total 1620 Output Total 1500 Balance 120 - Medications Medications: Current Medications Acetaminophen (Tylenol 325mg Tab) 650 mg PO Q6H PRN PRN Reason: Headache Alprazolam (Xanax) 0.5 mg PO BID PRN; Protocol PRN Reason: Anxiety Aspirin (Aspirin Chewable) 81 mg PO DAILY [facility] Last Admin: 01/07/17 09:52 Dose: 81 mg Atorvastatin Calcium (Lipitor) 80 mg PO DIN [facility] Last Admin: 01/07/17 16:58 Dose: Not Given Fluoxetine HCl (Prozac) 20 mg PO DAILY [facility] Last Admin: 01/07/17 09:52 Dose: 20 mg Gabapentin (Neurontin) 400 mg PO TID [facility] PRN Reason: Protocol Last Admin: 01/07/17 13:16 Dose: 400 mg Lisinopril (Zestril) 20 mg PO DAILY [facility] Last Admin: 01/07/17 09:53 Dose: 20 mg Pantoprazole Sodium (Protonix Inj) 40 mg IVP DAILY [facility] Last Admin: 01/07/17 09:56 Dose: 40 mg Zaleplon (Sonata) 5 mg PO HS [facility] - Labs Labs: 01/07/17 06:20 01/07/17 06:20 PT 11.1 Seconds (9.9-11.8) 01/04/17 05:30 INR 1.03 (0.93-1.08) 01/04/17 05:30 APTT 25.7 Seconds (23.7-30.8) 01/04/17 05:30 - Constitutional Appears: No Acute Distress - Head Exam Head Exam: NORMAL INSPECTION, NORMOCEPHALIC - Eye Exam Eye Exam: EOMI, Normal appearance - ENT Exam ENT Exam: Mucous Membranes Moist, Normal Exam - Neck Exam Neck Exam: Full ROM - Respiratory Exam Respiratory Exam: Clear to Ausculation Bilateral, NORMAL BREATHING PATTERN. absent: Rales, Rhonchi, Wheezes - Cardiovascular Exam Cardiovascular Exam: REGULAR RHYTHM, +S1, +S2. absent: Murmur - GI/Abdominal Exam GI & Abdominal Exam: absent: Distended, Tenderness - Extremities Exam Extremities Exam: absent: Calf Tenderness, Pedal Edema - Neurological Exam Neurological Exam: Alert, Awake, Oriented x3 - Psychiatric Exam Psychiatric exam: Normal Affect, Normal Mood - Skin Skin Exam: Dry, Intact, Normal Color, Warm Assessment and Plan - Assessment and Plan (Free Text) Assessment: 46yo female with a history of 2 prior CVA's, hypertension and hyperlipidemia was admitted for suspected CVA/TIA 1. Left sided weakness -Continue aspirin and lipitor -will discuss with neurology the course of snf anticoagulants -Patient placed on heart healthy diet -Continue neurochecks q2h -recommend outpatient followup with ENT for CT findings of nonspecific shotty cervical nodes at multiple levels and bilateral parotid lymph nodes to correlate patients dysphagia -PT/OT recommended acute rehab placement 2. Chest pain -Cont aspirin and lipitor -cardiology following 3. Insomnia -start sonata, per psych 4. Gi/DVT Prophylaxis -Protonix/SCD's Patient seen and case discussed with attending physician, Dr. Quevedo. <Roberth Quevedo - Last Filed: 01/08/17 07:41> Objective - Vital Signs/Intake and Output Vital Signs (last 24 hours): Temp Pulse Resp BP Pulse Ox 98.3 F 92 H 16 148/84 98 01/08/17 00:00 01/08/17 06:00 01/08/17 04:00 01/08/17 04:00 01/08/17 04:00 Intake and Output: 01/08/17 01/08/17 06:59 18:59 Output Total 725 Balance -725 - Medications Medications: Current Medications Acetaminophen (Tylenol 325mg Tab) 650 mg PO Q6H PRN PRN Reason: Headache Last Admin: 01/08/17 01:56 Dose: 650 mg Alprazolam (Xanax) 0.5 mg PO BID PRN; Protocol PRN Reason: Anxiety Aspirin (Aspirin Chewable) 81 mg PO DAILY [facility] Last Admin: 01/07/17 09:52 Dose: 81 mg Atorvastatin Calcium (Lipitor) 80 mg PO DIN [facility] Last Admin: 01/07/17 16:58 Dose: Not Given Fluoxetine HCl (Prozac) 20 mg PO DAILY [facility] Last Admin: 01/07/17 09:52 Dose: 20 mg Gabapentin (Neurontin) 400 mg PO TID [facility] PRN Reason: Protocol Last Admin: 01/07/17 13:16 Dose: 400 mg Lisinopril (Zestril) 20 mg PO DAILY [facility] Last Admin: 01/07/17 09:53 Dose: 20 mg Pantoprazole Sodium (Protonix Inj) 40 mg IVP DAILY [facility] Last Admin: 01/07/17 09:56 Dose: 40 mg Zaleplon (Sonata) 5 mg PO HS [facility] - Labs Labs: 01/07/17 06:20 01/07/17 06:20 PT 11.1 Seconds (9.9-11.8) 01/04/17 05:30 INR 1.03 (0.93-1.08) 01/04/17 05:30 APTT 25.7 Seconds (23.7-30.8) 01/04/17 05:30 Attending/Attestation - Attestation I have personally seen and examined this patient.: Yes I have fully participated in the care of the patient.: Yes I have reviewed all pertinent clinical information, including history, physical exam and plan: Yes Notes (Text): 01/07/17 46 year old female with past medical history of prior CVAs, hypertension and dyslipidemia who presented with suspected stroke with symptoms of left sided weakness. She received TPA on admission and was admitted to the ICU. CT head showed age indeterminate lacunar infarct in the left basal ganglia. CTA and MRA were negative. MRI brain showed no acute intracranial abnormality, no evidence of acute infarct, showed an old lacunar infarction in the left montoya radiata. Echocardiogram and repeat CT head were reviewed. She is being followed by neurology and currently on aspirin and lipitor. PT is following as well who is recommending acute rehab. Psychiatry was also following for depression. She initially complained of chest pain which has improved. Serial cardiac enzymes were negative and ACS was ruled out. When patient was examined earlier this morning she was more cheerful and conversant but still complained of left sided weakness. She was also seen by PT and placed on chair. Family (daughter) came to visit in afternoon as well. Later in the afternoon ENGINEERING DESIGNER was called for decreased responsiveness. CT head did now show any acute findings. Ammonia and cardiac enyzmes were negative. ABG was negative for CO2 retention. EEG was done which will be reviewed by neurology. ICU evaluation was requested for possible transfer for ICU monitoring. Roberth Quevedo MD Hospitalist.
--- NOTE | 2017-01-07 19:03 | CP.PCM.PN ---
Subjective - Date & Time of Evaluation Date of Evaluation: 01/07/17 Time of Evaluation: 18:50 - Subjective Subjective: patient was seen and examined at bedside. Not responsive even to painful stimuli. Appears comfortable. No stereotypical movements. EEG was done, results are pending Objective - Vital Signs/Intake and Output Vital Signs (last 24 hours): Temp Pulse Resp BP Pulse Ox 99 F 104 H 20 153/84 H 97 01/07/17 18:10 01/07/17 18:10 01/07/17 18:10 01/07/17 18:10 01/07/17 04:00 Intake and Output: 01/07/17 01/07/17 06:59 18:59 Intake Total 1620 Output Total 1500 Balance 120 - Medications Medications: Current Medications Acetaminophen (Tylenol 325mg Tab) 650 mg PO Q6H PRN PRN Reason: Headache Alprazolam (Xanax) 0.5 mg PO BID PRN; Protocol PRN Reason: Anxiety Aspirin (Aspirin Chewable) 81 mg PO DAILY [facility] Last Admin: 01/07/17 09:52 Dose: 81 mg Atorvastatin Calcium (Lipitor) 80 mg PO DIN [facility] Last Admin: 01/07/17 16:58 Dose: Not Given Fluoxetine HCl (Prozac) 20 mg PO DAILY [facility] Last Admin: 01/07/17 09:52 Dose: 20 mg Gabapentin (Neurontin) 400 mg PO TID [facility] PRN Reason: Protocol Last Admin: 01/07/17 13:16 Dose: 400 mg Lisinopril (Zestril) 20 mg PO DAILY [facility] Last Admin: 01/07/17 09:53 Dose: 20 mg Pantoprazole Sodium (Protonix Inj) 40 mg IVP DAILY [facility] Last Admin: 01/07/17 09:56 Dose: 40 mg Zaleplon (Sonata) 5 mg PO HS [facility] - Labs Labs: 01/07/17 06:20 01/07/17 06:20 PT 11.1 Seconds (9.9-11.8) 01/04/17 05:30 INR 1.03 (0.93-1.08) 01/04/17 05:30 APTT 25.7 Seconds (23.7-30.8) 01/04/17 05:30 - Head Exam Head Exam: ATRAUMATIC, NORMOCEPHALIC - Eye Exam Eye Exam: Normal appearance - ENT Exam ENT Exam: Mucous Membranes Moist - Respiratory Exam Respiratory Exam: Clear to Ausculation Bilateral, NORMAL BREATHING PATTERN - Cardiovascular Exam Cardiovascular Exam: REGULAR RHYTHM - GI/Abdominal Exam GI & Abdominal Exam: Soft (non-tender) - Extremities Exam Extremities Exam: Normal Capillary Refill, Normal Inspection - Neurological Exam Additional comments: dosnt move extremities. Not responsive to painful stimuli - Psychiatric Exam Additional comments: appears comfortable, but not responsive - Skin Skin Exam: Normal Color, Warm Assessment and Plan - Assessment and Plan (Free Text) Assessment: 46 yo with h/o CVA in the past, who presented few days ago in ICU for clinical stroke nows/p tPA more then [address] Mckeon-->unlikely psych issue in the absence of response to painful simuli. EEG is done will be followed. Call to Dr. Hendricks was issued. message left. CT head is unremarkable--> will repeat in am. ABG--no c02 retention. Will get NH3 level. Patient is afebrile, no clear cut source and no leukocytosis-->unlikely sepsis. Fairly acute change in mental status-->will take to ICU for airway monitoring. Presently though is able to protect airways. Of note, no epsiodes of hypoxia or hypotension documented-->does NOT appear to be hypoxemic brain injury. DVT/GI prophylaxis ccm time 40 min Plan: 6 yo with h/o CVA in the past, who presented few days ago in ICU for clinical stroke nows/p tPA more then [address] Mckeon-->unlikely psych issue in the absence of response to painful simuli. EEG is done will be followed. Call to Dr. Hendricks was issued. message left. CT head is unremarkable--> will repeat in am. ABG--no c02 retention. Will get NH3 level. Patient is afebrile, no clear cut source and no leukocytosis-->unlikely sepsis. Fairly acute change in mental status-->will take to ICU for airway monitoring. Presently though is able to protect airways. Of note, no epsiodes of hypoxia or hypotension documented-->does NOT appear to be hypoxemic brain injury. DVT/GI prophylaxis ccm time 40 min
--- NOTE | 2017-01-07 19:49 | CP.PCM.PCO ---
Physician Communication Note - Physician Communication Note Physician Communication Note: NG insertion order inserted for Dr. Mari Alfaro, inserted by her.
--- NOTE | 2017-01-08 08:40 | CP.PCM.PN ---
Subjective - Date & Time of Evaluation Date of Evaluation: 01/08/17 Time of Evaluation: 07:15 - Subjective Subjective: Events noted of yesterday and last night.... period of unresponsiveness, S/p rapid response. Pt has no recollection of this event Spoke to telemetry, who was taking care yesterday during event, Spoke to assistant shift supervisor nursing staff in ICU... Appatrently Period of unresponsiveness but Vitals remained stable.. No arrythmia in tel monitor as well.( except S tach, ECG also showed S tach). Objective - Vital Signs/Intake and Output Vital Signs (last 24 hours): Temp Pulse Resp BP Pulse Ox 98.3 F 92 H 16 148/84 98 01/08/17 00:00 01/08/17 06:00 01/08/17 04:00 01/08/17 04:00 01/08/17 04:00 Intake and Output: 01/08/17 01/08/17 06:59 18:59 Output Total 725 Balance -725 - Medications Medications: Current Medications Acetaminophen (Tylenol 325mg Tab) 650 mg PO Q6H PRN PRN Reason: Headache Last Admin: 01/08/17 01:56 Dose: 650 mg Alprazolam (Xanax) 0.5 mg PO BID PRN; Protocol PRN Reason: Anxiety Aspirin (Aspirin Chewable) 81 mg PO DAILY [facility] Last Admin: 01/07/17 09:52 Dose: 81 mg Atorvastatin Calcium (Lipitor) 80 mg PO DIN [facility] Last Admin: 01/07/17 16:58 Dose: Not Given Fluoxetine HCl (Prozac) 20 mg PO DAILY [facility] Last Admin: 01/07/17 09:52 Dose: 20 mg Gabapentin (Neurontin) 400 mg PO TID [facility] PRN Reason: Protocol Last Admin: 01/07/17 13:16 Dose: 400 mg Lisinopril (Zestril) 20 mg PO DAILY [facility] Last Admin: 01/07/17 09:53 Dose: 20 mg Pantoprazole Sodium (Protonix Inj) 40 mg IVP DAILY [facility] Last Admin: 01/07/17 09:56 Dose: 40 mg Zaleplon (Sonata) 5 mg PO HS [facility] - Labs Labs: 01/07/17 06:20 01/07/17 06:20 PT 11.1 Seconds (9.9-11.8) 01/04/17 05:30 INR 1.03 (0.93-1.08) 01/04/17 05:30 APTT 25.7 Seconds (23.7-30.8) 01/04/17 05:30 - Constitutional Appears: Non-toxic - Head Exam Head Exam: ATRAUMATIC - Eye Exam Eye Exam: Conjunctival injection - ENT Exam ENT Exam: Mucous Membranes Moist - Neck Exam Neck Exam: Full ROM - Respiratory Exam Respiratory Exam: Clear to Ausculation Bilateral - Cardiovascular Exam Cardiovascular Exam: REGULAR RHYTHM - Neurological Exam Neuro motor strength exam: Left Upper Extremity: 4, Right Upper Extremity: 5, Left Lower Extremity: 2/1, Right Lower Extremity: 5 Assessment and Plan - Assessment and Plan (Free Text) Assessment: CVA with left sided weakness Lower extremity > upper extremity Repeat CT Scan of Head No New ICB, Old CVA Period of unresponsive ( noticed by nursing staff, as post tictal???, not definite ??) R/o Sz??. R/o recurrent SZ No Arrythmia recorded . was on teletypesetter monitor HTN Hyperlipidemia Plan: ASA/ Statin/ Lisinopril F/u EEG Neuro f/U .
[2017-01-08 08:52] LABS: BASO # 0.02 K/mm3 (0.0-2.0); BASO % 0.2 % (0.0-3.0); EOS # 0.1 (0.0-0.7); EOS % 0.8 % (1.5-5.0); GRAN # 7.29 (1.4-6.5); GRAN % 69.4 % (50.0-68.0); HEMOGLOBIN 14.1 gm/dL (12.0-16.0); LYMPH # 2.4 (1.2-3.4); LYMPH % 22.6 % (22.0-35.0); MEAN CELL VOLUME 94.7 fL (80.0-105.0); MEAN CORPUSCULAR HEMOGLOBIN 32.6 pg (25.0-35.0); MEAN CORPUSCULAR HGB CONC 34.5 g/dl (31.0-37.0); MEAN PLATELET VOLUME 10.6 fl (7.0-11.0); MONO # 0.7 (0.1-0.6); PLATELET COUNT 235 10^3/uL (120.0-450.0); RBC 4.32 10^6/uL (3.5-6.1); RED CELL DISTRIBUTION WIDTH 12.1 % (11.5-14.5); WHITE BLOOD COUNT 10.5 10^3/ul (4.5-11.0)
[2017-01-08 09:03] LABS: ALB/GLOB RATIO 1.3 (1.1-1.8); ALBUMIN 4.3 g/dL (3.0-4.8); ALT/SGPT 46 U/L (7-56); AST/SGOT 33 U/L (15-39); BLOOD UREA NITROGEN 13 mg/dL (7-21); CALCIUM 9.4 mg/dL (8.4-10.5); GFR AFRICAN-AMERICAN > 60; GFR NON-AFRICAN AMERICAN > 60
--- NOTE | 2017-01-08 10:17 | CARD ---
APPROVED REPORT EKG Measurement Heart [id number] <Conclusion> Sinus tachycardia NSSTW changes No change
--- NOTE | 2017-01-08 17:18 | CP.PCM.CON ---
History of Present Illness - History of Present Illness History of Present Illness: shortly pt initially was admitted to the ICU for evaluation of possible CVA, psych consult was called for med management and depression, pt was downdraded to the 2nd floor Further evaluation, yesterday afternoon patient had altered mental status, was not responding to painful stimuli, needed to be transferred back to CCU. this ticket writer discussed case with , . Medical team agrees concerned that patient has either conversion disorder or somatiform disorders. this ticket writer perspective patient is highly likely for the patient to have conversion or somatoform disorders at present moment. This ticket writer had phone conversation with patient and daughter Hoda who was next to the pt today. Pt gave permission to speak to the daughter. as per daughter patient was stressed out about the fact that pt's oldest daughter was admitted to the psychiatric inpatient because of psychosis (long h/ o schizophrenia) about a week prior this admission. pt was not more depressed or anxious than usual. prior to this hospitalization pt was on picnic and as per daughter pt c/o "heaviness, she was not able to open her eyes", pt had similar symptoms in the past when she had strokes, family called 911. (conversion reaction usually is right after the stressful situation or bad news), it will be atypical for the pt to have this dx, moreover pt was concerned about the weakness of her left side of the body in conversion disorder pt would have "charity indeference". In somatization d/o pt would have multiple somatic complaints. hypochondriasis pt would be self dx and would keep coming requesting multiple tests to be done going back to AMS yesterday, pt said that "they gave me some medication in apple souse and after that I had very unpleasant and disgusted taste in my mouth , then I passed out and woke up here". as per h/o pt took only neurontin. pt denied thoughts of harming self or others, denied feeling of hopelessness or helplessness. at the same time pt has some narcistic traits, "I don't like rehabs, they did not give me attention what I needed". MSE: pt is alert and oriented in self, time and place, speech was normal rate, tone, quality and quantity, mood "I am little better, my main problem is the weakness of my left side", affect was more reactive today, mood congruent, thought process is coherent and goal directed, thought content: pt denied v/t/a hallucinations, denied paranoid ideation, pt does not present to be psychotic, pt adamantly denied thoughts of harming self or others. Insight and judgment are fair, impulses are well predictable. Impression: r/o seizure disorder (neurologist on the case) r/o MDD r/o mood disorder due to a GMC (general medical condition) pt has multiple medical issues (please see above). r/o somatiform disorder (but unlikely) r/o conversion d/o (?) Plan: medical team hold prozac, agree PRN Sonata hs for insomnia xanax PRN neurontin as per medical team EEG was done, will f/u on result Neurology is f/u on pt d/w / this ticket writer will f/u on this pt and advise accordingly. collateral from family appreciated Past Patient History - Infectious Disease Hx of Infectious Diseases: None - Tetanus Immunizations Tetanus Immunization: Unknown - Past Social History Smoking Status: Never Smoked - CARDIAC Hx Hypertension: Yes - PULMONARY Hx Respiratory Disorders: No - NEUROLOGICAL HX Cerebrovascular Accident: Yes (L sided weakness, had TPA) - HEENT Hx HEENT Problems: No - RENAL Hx Chronic Kidney Disease: No - ENDOCRINE/METABOLIC Hx Endocrine Disorders: No - HEMATOLOGICAL/ONCOLOGICAL Hx Blood Disorders: No - INTEGUMENTARY Hx Dermatological Problems: No - MUSCULOSKELETAL/RHEUMATOLOGICAL Hx Musculoskeletal Disorders: Yes (Hx of Rt Knee Surgery 2015.) Hx Falls: No - GASTROINTESTINAL Hx Gastrointestinal Disorders: Yes (Gastritis) - GENITOURINARY/GYNECOLOGICAL Hx Genitourinary Disorders: No - PSYCHIATRIC Hx Depression: No Hx Emotional Abuse: No Hx Physical Abuse: No Hx Substance Use: No - SURGICAL HISTORY Hx Surgeries: No Hx Cholecystectomy: Yes Hx Hysterectomy: Yes - ANESTHESIA Hx Anesthesia: No Hx Anesthesia Reactions: No Hx Malignant Hyperthermia: No Meds Allergies/Adverse Reactions: Allergies Allergy/AdvReac Type Severity Reaction Status Date / Time avocado Allergy Severe SWELLING Verified 01/04/17 03:58 aspirin Allergy Intermediate NAUSEA Verified 01/08/17 09:23 apple Allergy SHORTNESS Verified 01/08/17 08:30 OF BREATH - Medications Medications: Current Medications Acetaminophen (Tylenol 325mg Tab) 650 mg PO Q6H PRN PRN Reason: Headache Last Admin: 01/08/17 01:56 Dose: 650 mg Alprazolam (Xanax) 0.5 mg PO BID PRN; Protocol PRN Reason: Anxiety Aspirin (Aspirin Chewable) 81 mg PO DAILY [facility] Last Admin: 01/08/17 09:32 Dose: 81 mg Atorvastatin Calcium (Lipitor) 80 mg PO DIN [facility] Last Admin: 01/07/17 16:58 Dose: Not Given Fluoxetine HCl (Prozac) 20 mg PO DAILY [facility] Last Admin: 01/07/17 09:52 Dose: 20 mg Gabapentin (Neurontin) 400 mg PO TID [facility] PRN Reason: Protocol Last Admin: 01/07/17 13:16 Dose: 400 mg Lisinopril (Zestril) 20 mg PO DAILY [facility] Last Admin: 01/08/17 09:35 Dose: 20 mg Pantoprazole Sodium (Protonix Inj) 40 mg IVP DAILY [facility] Last Admin: 01/08/17 09:31 Dose: 40 mg Zaleplon (Sonata) 5 mg PO [facility] Results - Vital Signs Recent Vital Signs: Last Vital Signs Temp 97.5 F L 01/08/17 16:00 Pulse 93 H 01/08/17 16:01 Resp 11 L 01/08/17 16:01 BP 132/117 H 01/08/17 16:01 Pulse Ox 95 01/08/17 16:01 - Labs Result Diagrams: 01/08/17 08:30 01/08/17 08:30 Labs: Laboratory Results - last 24 hr 01/07/17 01/07/17 01/07/17 16:32 16:32 21:20 WBC RBC Hgb Hct MCV MCH MCHC RDW Plt Count MPV Gran % Lymph % (Auto) [place] % (Auto) Eos % (Auto) Baso % (Auto) Gran # Lymph # [place] # Eos # Baso # Sodium Potassium Chloride Carbon Dioxide Anion Gap BUN Creatinine Est GFR ( Amer) Est GFR (Non-Af Amer) POC Glucose (mg/dL) 110 Random Glucose Calcium Total Bilirubin AST ALT Alkaline Phosphatase Ammonia < 9 L Lactate Dehydrogenase 351 Total Creatine Kinase 28 L Troponin I < 0.01 Total Protein Albumin Globulin Albumin/Globulin Ratio 01/08/17 01/08/17 08:30 08:30 WBC 10.5 D RBC 4.32 Hgb 14.1 Hct 40.9 MCV 94.7 MCH 32.6 MCHC 34.5 RDW 12.1 Plt Count 235 MPV 10.6 Gran % 69.4 H Lymph % (Auto) 22.6 [place] % (Auto) 7.0 H Eos % (Auto) 0.8 L Baso % (Auto) 0.2 Gran # 7.29 H Lymph # 2.4 [place] # 0.7 H Eos # 0.1 Baso # 0.02 Sodium 139 Potassium 3.8 Chloride 102 Carbon Dioxide 26 Anion Gap 15 BUN 13 Creatinine 0.6 Est GFR ( Amer) > 60 Est GFR (Non-Af Amer) > 60 POC Glucose (mg/dL) Random Glucose 110 Calcium 9.4 Total Bilirubin 0.9 AST 33 ALT 46 Alkaline Phosphatase 68 Ammonia Lactate Dehydrogenase Total Creatine Kinase Troponin I Total Protein 7.6 Albumin 4.3 Globulin 3.4 Albumin/Globulin Ratio 1.3
--- NOTE | 2017-01-08 18:01 | CP.PCM.PN ---
<David Vasques - Last Filed: 01/08/17 18:28> Subjective - Date & Time of Evaluation Date of Evaluation: 01/08/17 Time of Evaluation: 17:27 - Subjective Subjective: Patient is sitting in wheel chair, eating supper. She appears well-nourished is much more alert and oriented than my encounter with her on 01/04/17. Objective - Vital Signs/Intake and Output Vital Signs (last 24 hours): Temp Pulse Resp BP Pulse Ox 97.5 F L 93 H 11 L 132/117 H 95 01/08/17 16:00 01/08/17 16:01 01/08/17 16:01 01/08/17 16:01 01/08/17 16:01 Intake and Output: 01/08/17 01/08/17 06:59 18:59 Output Total 725 Balance -725 - Medications Medications: Current Medications Acetaminophen (Tylenol 325mg Tab) 650 mg PO Q6H PRN PRN Reason: Headache Last Admin: 01/08/17 01:56 Dose: 650 mg Alprazolam (Xanax) 0.5 mg PO BID PRN; Protocol PRN Reason: Anxiety Aspirin (Aspirin Chewable) 81 mg PO DAILY [facility] Last Admin: 01/08/17 09:32 Dose: 81 mg Atorvastatin Calcium (Lipitor) 80 mg PO DIN [facility] Last Admin: 01/07/17 16:58 Dose: Not Given Fluoxetine HCl (Prozac) 20 mg PO DAILY [facility] Last Admin: 01/07/17 09:52 Dose: 20 mg Gabapentin (Neurontin) 400 mg PO TID [facility] PRN Reason: Protocol Last Admin: 01/07/17 13:16 Dose: 400 mg Lisinopril (Zestril) 20 mg PO DAILY [facility] Last Admin: 01/08/17 09:35 Dose: 20 mg Pantoprazole Sodium (Protonix Inj) 40 mg IVP DAILY [facility] Last Admin: 01/08/17 09:31 Dose: 40 mg Zaleplon (Sonata) 5 mg PO HS [facility] - Labs Labs: 01/08/17 08:30 01/08/17 08:30 PT 11.1 Seconds (9.9-11.8) 01/04/17 05:30 INR 1.03 (0.93-1.08) 01/04/17 05:30 APTT 25.7 Seconds (23.7-30.8) 01/04/17 05:30 - Constitutional Appears: Well, No Acute Distress - Head Exam Head Exam: ATRAUMATIC, NORMOCEPHALIC - Eye Exam Eye Exam: EOMI, Normal appearance, PERRL. absent: Conjunctival injection Pupil Exam: PERRL - ENT Exam ENT Exam: Mucous Membranes Moist, Normal Exam - Respiratory Exam Respiratory Exam: Clear to Ausculation Bilateral, NORMAL BREATHING PATTERN. absent: Respiratory Distress - Cardiovascular Exam Additional comments: extra beats auscultated, correlating with abnormal distal pulse - GI/Abdominal Exam GI & Abdominal Exam: Soft. absent: Tenderness, Rebound - Rectal Exam Rectal Exam: Deferred - Extremities Exam Extremities Exam: Calf Tenderness (left) - Neurological Exam Neurological Exam: Motor Sensory Deficit (left hemiplegia, right hyperesthesia) Additional comments: Patient cannot shrug left shoulder, compared to right. - Psychiatric Exam Psychiatric exam: Normal Affect, Normal Mood - Skin Skin Exam: Intact, Normal Color Assessment and Plan (1) CVA (cerebral vascular accident) Assessment & Plan: EKG shows abnormalities that will be discussed with attending. Status: Ruled-out - Assessment and Plan (Free Text) Assessment: Recurrent stroke cannot be ruled out. The ischemic penumbra could have caused an elliptogenic foci-inducing a seizure. MRI w DWI, SHIKHA should be performed. MRI of the brain on 01/04 demonstrates an old infart along the left montoya radiata that may correlate with the Hyperesthesia on the right side of the body and left-sided hemiparesis. Plan: Recurrent stroke cannot be ruled out. The ischemic penumbra could have caused an elliptogenic foci-inducing a seizure. MRI w DWI, SHIKHA should be performed. MRI of the brain on 01/04 demonstrates an old infart along the left montoya radiata that may correlate with the Hyperesthesia on the right side of the body and left-sided hemiparesis. I reviewed her recent EKGs, and with abnormalities noted I would investigate for an underlying arrhythmia. David Vasques, PGY-1 Pager# [phone] <Jayy Rawls - Last Filed: 01/11/17 13:09> Objective - Vital Signs/Intake and Output Vital Signs (last 24 hours): Temp Pulse Resp BP Pulse Ox 98.4 F 87 20 127/70 96 01/11/17 12:00 01/11/17 12:00 01/11/17 12:00 01/11/17 12:00 01/11/17 06:00 Intake and Output: 01/11/17 01/11/17 06:59 18:59 Intake Total 840 Output Total 1800 Balance -960 - Medications Medications: Current Medications Acetaminophen (Tylenol 650mg/20.3ml Solution Ud) 650 mg PO Q6H PRN PRN Reason: Temperature Last Admin: 01/10/17 16:08 Dose: 650 mg Alprazolam (Xanax) 0.5 mg PO BID PRN; Protocol PRN Reason: Anxiety Aspirin (Aspirin Chewable) 81 mg PO DAILY [facility] Last Admin: 01/11/17 10:18 Dose: 81 mg Atorvastatin Calcium (Lipitor) 80 mg PO DIN [facility] Last Admin: 01/10/17 17:08 Dose: 80 mg Fluoxetine HCl (Prozac) 20 mg PO DAILY [facility] Last Admin: 01/11/17 10:18 Dose: 20 mg Gabapentin (Neurontin) 400 mg PO TID [facility] PRN Reason: Protocol Last Admin: 01/11/17 10:18 Dose: 400 mg Lisinopril (Zestril) 20 mg PO DAILY [facility] Last Admin: 01/11/17 10:17 Dose: 20 mg Pantoprazole Sodium (Protonix Inj) 40 mg IVP DAILY [facility] Last Admin: 01/11/17 10:18 Dose: 40 mg Zaleplon (Sonata) 5 mg PO HS PRN PRN Reason: Insomnia - Labs Labs: 01/11/17 07:40 01/11/17 07:40 PT 11.1 Seconds (9.9-11.8) 01/04/17 05:30 INR 1.03 (0.93-1.08) 01/04/17 05:30 APTT 25.7 Seconds (23.7-30.8) 01/04/17 05:30 Attending/Attestation - Attestation I have personally seen and examined this patient.: Yes I have fully participated in the care of the patient.: Yes I have reviewed all pertinent clinical information, including history, physical exam and plan: Yes Notes (Text): 01/11/17 13:07 46 yo female with episodes of AMS, now completely alert, awake and oriented x 3. Hemodynamically and respiratory dominguez stable. protecting airways. Ok to downgrade to [employer] ccm time 40 min
--- NOTE | 2017-01-08 18:16 | CP.PCM.PN ---
<TRA MEEHAN - Last Filed: 01/08/17 18:11> Subjective - Date & Time of Evaluation Date of Evaluation: 01/08/17 Time of Evaluation: 07:15 - Subjective Subjective: Medicine Progress Note: Pt was seen and assessed at bedside. Pt was called for a rapid response after she was unresponsive yesterday afternoon (01/07). Pt was taken for a stat CT and an EEG. Pt recalls taking "some medication in apple sauce" and then nothing until several hours later. Currently patient is stable and has no complaints. Previous left sided weakness is unchanged. Pt denies fever, headache, changes in vision, dizziness, dysphagia, shortness of breath, chest pain, nausea/ vomiting, diarrhea or abdominal pain. Objective - Vital Signs/Intake and Output Vital Signs (last 24 hours): Temp Pulse Resp BP Pulse Ox 97.5 F L 93 H 11 L 132/117 H 95 01/08/17 16:00 01/08/17 16:01 01/08/17 16:01 01/08/17 16:01 01/08/17 16:01 Intake and Output: 01/08/17 01/08/17 06:59 18:59 Output Total 725 Balance -725 - Medications Medications: Current Medications Acetaminophen (Tylenol 325mg Tab) 650 mg PO Q6H PRN PRN Reason: Headache Last Admin: 01/08/17 01:56 Dose: 650 mg Alprazolam (Xanax) 0.5 mg PO BID PRN; Protocol PRN Reason: Anxiety Aspirin (Aspirin Chewable) 81 mg PO DAILY [facility] Last Admin: 01/08/17 09:32 Dose: 81 mg Atorvastatin Calcium (Lipitor) 80 mg PO DIN [facility] Last Admin: 01/08/17 17:01 Dose: 80 mg Fluoxetine HCl (Prozac) 20 mg PO DAILY [facility] Last Admin: 01/07/17 09:52 Dose: 20 mg Gabapentin (Neurontin) 400 mg PO TID [facility] PRN Reason: Protocol Last Admin: 01/07/17 13:16 Dose: 400 mg Lisinopril (Zestril) 20 mg PO DAILY [facility] Last Admin: 01/08/17 09:35 Dose: 20 mg Pantoprazole Sodium (Protonix Inj) 40 mg IVP DAILY [facility] Last Admin: 01/08/17 09:31 Dose: 40 mg Zaleplon (Sonata) 5 mg PO HS [facility] - Labs Labs: 01/08/17 08:30 01/08/17 08:30 PT 11.1 Seconds (9.9-11.8) 01/04/17 05:30 INR 1.03 (0.93-1.08) 01/04/17 05:30 APTT 25.7 Seconds (23.7-30.8) 01/04/17 05:30 - Constitutional Appears: No Acute Distress - Head Exam Head Exam: NORMAL INSPECTION, NORMOCEPHALIC - Eye Exam Eye Exam: EOMI, Normal appearance, PERRL Pupil Exam: NORMAL ACCOMODATION, PERRL - ENT Exam ENT Exam: Mucous Membranes Moist, Normal Exam - Neck Exam Neck Exam: Full ROM, Normal Inspection - Respiratory Exam Respiratory Exam: Clear to Ausculation Bilateral, NORMAL BREATHING PATTERN. absent: Rales, Rhonchi, Wheezes, Respiratory Distress - Cardiovascular Exam Cardiovascular Exam: REGULAR RHYTHM, +S1, +S2. absent: Murmur - GI/Abdominal Exam GI & Abdominal Exam: absent: Distended, Tenderness - Extremities Exam Extremities Exam: absent: Calf Tenderness, Pedal Edema - Neurological Exam Neurological Exam: Alert, Awake, CN II-XII Intact, Oriented x3 Neuro motor strength exam: Left Upper Extremity: 2/1, Right Upper Extremity: 5, Left Lower Extremity: 2/1, Right Lower Extremity: 5 - Psychiatric Exam Psychiatric exam: Normal Affect, Normal Mood - Skin Skin Exam: Dry, Intact, Normal Color, Warm Assessment and Plan - Assessment and Plan (Free Text) Assessment: 46yo female with a history of 2 prior CVA's, hypertension and hyperlipidemia was admitted for suspected CVA/TIA 1. Left sided weakness -s/p rapid response (01/07) -stat CT negative for acute process -awaiting EEG results and neuro f/u -psych ruled out any psychiatric etiology for weakness -holding prozac, gabapentin and sonata -Continue aspirin and lipitor -Continue neurochecks q2h -Recommend acute rehab placement, per PT/OT evaluation 2. Dysphagia -patient put on soft diet with finely chopped solids and thin liquids, per speech therapy -recommend outpatient followup with ENT for CT findings of nonspecific shotty cervical nodes at multiple levels and bilateral parotid lymph nodes to correlate patients dysphagia 3. Chest pain -Cont aspirin and lipitor -cardiology following 4. Insomnia -sonata held pending EEG results 5. Gi/DVT Prophylaxis -Protonix/SCD's Patient seen and case discussed with attending physician, Dr. Quevedo. <Roberth Quevedo - Last Filed: 01/09/17 06:48> Objective - Vital Signs/Intake and Output Vital Signs (last 24 hours): Temp Pulse Resp BP Pulse Ox 98.0 F 82 20 120/71 95 01/09/17 00:01 01/09/17 02:00 01/09/17 00:01 01/09/17 00:01 01/09/17 00:01 - Medications Medications: Current Medications Acetaminophen (Tylenol 650mg/20.3ml Solution Ud) 650 mg PO Q6H PRN PRN Reason: Temperature Last Admin: 01/09/17 02:35 Dose: 650 mg Alprazolam (Xanax) 0.5 mg PO BID PRN; Protocol PRN Reason: Anxiety Aspirin (Aspirin Chewable) 81 mg PO DAILY [facility] Last Admin: 01/08/17 09:32 Dose: 81 mg Atorvastatin Calcium (Lipitor) 80 mg PO DIN [facility] Last Admin: 01/08/17 17:01 Dose: 80 mg Fluoxetine HCl (Prozac) 20 mg PO DAILY [facility] Last Admin: 01/07/17 09:52 Dose: 20 mg Gabapentin (Neurontin) 400 mg PO TID [facility] PRN Reason: Protocol Last Admin: 01/07/17 13:16 Dose: 400 mg Lisinopril (Zestril) 20 mg PO DAILY [facility] Last Admin: 01/08/17 09:35 Dose: 20 mg Pantoprazole Sodium (Protonix Inj) 40 mg IVP DAILY [facility] Last Admin: 01/08/17 09:31 Dose: 40 mg Zaleplon (Sonata) 5 mg PO HS [facility] - Labs Labs: 01/08/17 08:30 01/08/17 08:30 PT 11.1 Seconds (9.9-11.8) 01/04/17 05:30 INR 1.03 (0.93-1.08) 01/04/17 05:30 APTT 25.7 Seconds (23.7-30.8) 01/04/17 05:30 Attending/Attestation - Attestation I have personally seen and examined this patient.: Yes I have fully participated in the care of the patient.: Yes I have reviewed all pertinent clinical information, including history, physical exam and plan: Yes Notes (Text): 01/08/17 46 year old female with past medical history of prior CVAs, hypertension and dyslipidemia who presented with suspected stroke with symptoms of left sided weakness. She received TPA on admission and was admitted to the ICU. CT head showed age indeterminate lacunar infarct in the left basal ganglia. CTA and MRA were negative. MRI brain showed no acute intracranial abnormality, no evidence of acute infarct, showed an old lacunar infarction in the left montoya radiata. Echocardiogram and repeat CT heads were reviewed. She is being followed by neurology and currently on aspirin and lipitor. PT was also following and had recommended acute rehab. Psychiatry was also following for depression. She initially complained of chest pain which has improved. Serial cardiac enzymes were negative and ACS was ruled out. Yesterday she had [employer] for decreased responsiveness. She was transferred to ICU for closer monitoring. Repeat CT head showed no acute changes. Her mental status has improved to baseline. She still complains of left sided weakness. Unsure if event was due to seizure vs medication effect. EEG was done with report pending. Neurology, PT and psychiatry follow up was requested. Currently her gabapentin, sonata and prozac are on hold for now. Roberth Quevedo MD Hospitalist.
[2017-01-09] MEDS: Acetaminophen 650mg/20.3ml solution UD PO PRN ×2 (02:35→08:39)
--- NOTE | 2017-01-09 12:59 | CP.PCM.PN ---
<Jaden Barr - Last Filed: 01/09/17 13:26> Subjective - Date & Time of Evaluation Date of Evaluation: 01/09/17 Time of Evaluation: 08:30 - Subjective Subjective: Patient seen and examined. No acute events since [employer] from yesterday. Patient is currently stable and offers no new complaints. Previous left sided weakness is unchanged. Patient denies fever, chills, chest pain, SOB, abdominal pain, n/v. Objective - Vital Signs/Intake and Output Vital Signs (last 24 hours): Temp Pulse Resp BP Pulse Ox 98.1 F 74 18 118/75 97 01/09/17 11:46 01/09/17 11:46 01/09/17 11:46 01/09/17 11:46 01/09/17 06:00 - Medications Medications: Current Medications Acetaminophen (Tylenol 650mg/20.3ml Solution Ud) 650 mg PO Q6H PRN PRN Reason: Temperature Last Admin: 01/09/17 08:39 Dose: 650 mg Alprazolam (Xanax) 0.5 mg PO BID PRN; Protocol PRN Reason: Anxiety Aspirin (Aspirin Chewable) 81 mg PO DAILY [facility] Last Admin: 01/09/17 10:46 Dose: 81 mg Atorvastatin Calcium (Lipitor) 80 mg PO DIN [facility] Last Admin: 01/08/17 17:01 Dose: 80 mg Fluoxetine HCl (Prozac) 20 mg PO DAILY [facility] Last Admin: 01/07/17 09:52 Dose: 20 mg Gabapentin (Neurontin) 400 mg PO TID AIDEN PRN Reason: Protocol Last Admin: 01/07/17 13:16 Dose: 400 mg Lisinopril (Zestril) 20 mg PO DAILY [facility] Last Admin: 01/09/17 10:38 Dose: 20 mg Pantoprazole Sodium (Protonix Inj) 40 mg IVP DAILY [facility] Last Admin: 01/09/17 10:46 Dose: 40 mg Zaleplon (Sonata) 5 mg PO HS [facility] - Labs Labs: 01/08/17 08:30 01/08/17 08:30 PT 11.1 Seconds (9.9-11.8) 01/04/17 05:30 INR 1.03 (0.93-1.08) 01/04/17 05:30 APTT 25.7 Seconds (23.7-30.8) 01/04/17 05:30 - Additional Findings Additional findings: - Constitutional Appears: No Acute Distress - Head Exam Head Exam: NORMAL INSPECTION, NORMOCEPHALIC - Eye Exam Eye Exam: EOMI, Normal appearance, - ENT Exam ENT Exam: Mucous Membranes Moist, Normal Exam - Neck Exam Neck Exam: Full ROM, Normal Inspection - Respiratory Exam Respiratory Exam: Clear to Ausculation Bilateral, NORMAL BREATHING PATTERN. absent: Rales, Rhonchi, Wheezes, Respiratory Distress - Cardiovascular Exam Cardiovascular Exam: REGULAR RHYTHM, +S1, +S2. absent: Murmur - GI/Abdominal Exam GI & Abdominal Exam: absent: Distended, Tenderness - Extremities Exam Extremities Exam: absent: Calf Tenderness, Pedal Edema - Neurological Exam Neurological Exam: Alert, Awake, CN II-XII Intact, Oriented x3 Neuro motor strength exam: Left Upper Extremity: 1/5, Right Upper Extremity: 5/5 , Left Lower Extremity: able to move digits on left foot but unable to grossly move lower extremity, Right Lower Extremity: 5/5 - Psychiatric Exam Psychiatric exam: Normal Affect, Normal Mood - Skin Skin Exam: Dry, Intact, Normal Color, Warm Assessment and Plan - Assessment and Plan (Free Text) Assessment: Patient is a 46yo female with a history of 2 prior CVA's, hypertension and hyperlipidemia who is admitted for evaluation and treatment for a suspected CVA/ TIA Plan: 1. Left sided weakness -awaiting EEG results and neuro f/u -psych ruled out any psychiatric etiology for weakness -holding prozac, gabapentin and sonata -Continue aspirin and lipitor -Continue neurochecks q2h -Recommend acute rehab placement, per PT/OT evaluation 2. Dysphagia -patient put on soft diet with finely chopped solids and thin liquids, per speech therapy -recommend outpatient followup with ENT for CT findings of nonspecific shotty cervical nodes at multiple levels and bilateral parotid lymph nodes to correlate patients dysphagia 3. Chest pain -Cont aspirin and lipitor -cardiology following 4. Insomnia -sonata held pending EEG results 5. Gi/DVT Prophylaxis -Protonix/SCD's Patient seen and case discussed with attending physician, Dr. Quevedo. <Roberth Quevedo - Last Filed: 01/09/17 14:02> Objective - Vital Signs/Intake and Output Vital Signs (last 24 hours): Temp Pulse Resp BP Pulse Ox 98.1 F 74 18 118/75 97 01/09/17 11:46 01/09/17 11:46 01/09/17 11:46 01/09/17 11:46 01/09/17 06:00 - Medications Medications: Current Medications Acetaminophen (Tylenol 650mg/20.3ml Solution Ud) 650 mg PO Q6H PRN PRN Reason: Temperature Last Admin: 01/09/17 08:39 Dose: 650 mg Alprazolam (Xanax) 0.5 mg PO BID PRN; Protocol PRN Reason: Anxiety Aspirin (Aspirin Chewable) 81 mg PO DAILY [facility] Last Admin: 01/09/17 10:46 Dose: 81 mg Atorvastatin Calcium (Lipitor) 80 mg PO DIN [facility] Last Admin: 01/08/17 17:01 Dose: 80 mg Fluoxetine HCl (Prozac) 20 mg PO DAILY [facility] Last Admin: 01/07/17 09:52 Dose: 20 mg Gabapentin (Neurontin) 400 mg PO TID AIDEN PRN Reason: Protocol Last Admin: 01/07/17 13:16 Dose: 400 mg Lisinopril (Zestril) 20 mg PO DAILY [facility] Last Admin: 01/09/17 10:38 Dose: 20 mg Pantoprazole Sodium (Protonix Inj) 40 mg IVP DAILY [facility] Last Admin: 01/09/17 10:46 Dose: 40 mg Zaleplon (Sonata) 5 mg PO HS PRN PRN Reason: Insomnia - Labs Labs: 01/08/17 08:30 01/08/17 08:30 PT 11.1 Seconds (9.9-11.8) 01/04/17 05:30 INR 1.03 (0.93-1.08) 01/04/17 05:30 APTT 25.7 Seconds (23.7-30.8) 01/04/17 05:30 Attending/Attestation - Attestation I have personally seen and examined this patient.: Yes I have fully participated in the care of the patient.: Yes I have reviewed all pertinent clinical information, including history, physical exam and plan: Yes Notes (Text): 01/09/17 14:00 46 year old female with past medical history of prior CVAs, hypertension and dyslipidemia who presented with suspected stroke with symptoms of left sided weakness. She received TPA on admission and was admitted to the ICU. CT head showed age indeterminate lacunar infarct in the left basal ganglia. CTA and MRA were negative. MRI brain showed no acute intracranial abnormality, no evidence of acute infarct, showed an old lacunar infarction in the left montoya radiata. Echocardiogram and repeat CT heads were reviewed. She is being followed by neurology and currently on aspirin and lipitor. PT was also following and had recommended acute rehab. Psychiatry was also following for depression, anxiety and to r/o somatoform vs conversion disorder. EEG was done with report pending. Case was discussed with neurology who will review EEG. Currently her gabapentin, sonata, and prozac are on hold. She initially complained of chest pain which has improved. Serial cardiac enzymes were negative and ACS was ruled out. Roberth Quevedo MD Hospitalist.
--- NOTE | 2017-01-09 13:38 | CP.PCM.CON ---
History of Present Illness - History of Present Illness History of Present Illness: f/u note: shortly pt initially was admitted to the ICU for evaluation of possible CVA, psych consult was called for med management and depression, pt was downdraded to the 2nd floor Further evaluation, January 07 afternoon patient had altered mental status, was not responding to painful stimuli, needed to be transferred back to CCU, pt was transfered back to the 2nd floor. Pt was seen today for f/u. pt c/o pain in her left leg, reported to have restless night and feeling anxious. xanax, prozac, sonata are on hold. pt denied thoughts of harming self or others, denied feeling of hopelessness or helplessness. MSE: pt is alert and oriented in self, time and place, speech was normal rate, tone, quality and quantity, mood "I am anxious, was not sleeping", affect was tearful, thought process is coherent and goal directed, thought content: pt denied v/t/a hallucinations, denied paranoid ideation, pt does not present to be psychotic, pt adamantly denied thoughts of harming self or others. Insight and judgment are fair, impulses are well predictable. Impression: r/o seizure disorder (neurologist on the case) r/o MDD r/o mood disorder due to a GMC (general medical condition) pt has multiple medical issues (please see above). r/o somatiform disorder (but unlikely) r/o conversion d/o (?) Plan: medical team hold prozac, agree PRN Sonata hs for insomnia could be resumed if no contraindication from medical and neurology teams xanax PRN could be resumed if no contraindication from medical and neurology teams neurontin as per medical team EEG was done, will f/u on result Neurology is f/u on pt this newswriter will f/u on this pt and advise accordingly. collateral from family appreciated Past Patient History - Infectious Disease Hx of Infectious Diseases: None - Tetanus Immunizations Tetanus Immunization: Unknown - Past Social History Smoking Status: Never Smoked - CARDIAC Hx Hypertension: Yes - PULMONARY Hx Respiratory Disorders: No - NEUROLOGICAL HX Cerebrovascular Accident: Yes (L sided weakness, had TPA) - HEENT Hx HEENT Problems: No - RENAL Hx Chronic Kidney Disease: No - ENDOCRINE/METABOLIC Hx Endocrine Disorders: No - HEMATOLOGICAL/ONCOLOGICAL Hx Blood Disorders: No - INTEGUMENTARY Hx Dermatological Problems: No - MUSCULOSKELETAL/RHEUMATOLOGICAL Hx Musculoskeletal Disorders: Yes (Hx of Rt Knee Surgery 2015.) Hx Falls: No - GASTROINTESTINAL Hx Gastrointestinal Disorders: Yes (Gastritis) - GENITOURINARY/GYNECOLOGICAL Hx Genitourinary Disorders: No - PSYCHIATRIC Hx Depression: No Hx Emotional Abuse: No Hx Physical Abuse: No Hx Substance Use: No - SURGICAL HISTORY Hx Surgeries: No Hx Cholecystectomy: Yes Hx Hysterectomy: Yes - ANESTHESIA Hx Anesthesia: No Hx Anesthesia Reactions: No Hx Malignant Hyperthermia: No Meds Allergies/Adverse Reactions: Allergies Allergy/AdvReac Type Severity Reaction Status Date / Time avocado Allergy Severe SWELLING Verified 01/04/17 03:58 aspirin Allergy Intermediate NAUSEA Verified 01/08/17 09:23 apple Allergy SHORTNESS Verified 01/08/17 08:30 OF BREATH - Medications Medications: Current Medications Acetaminophen (Tylenol 650mg/20.3ml Solution Ud) 650 mg PO Q6H PRN PRN Reason: Temperature Last Admin: 01/09/17 08:39 Dose: 650 mg Alprazolam (Xanax) 0.5 mg PO BID PRN; Protocol PRN Reason: Anxiety Aspirin (Aspirin Chewable) 81 mg PO DAILY [facility] Last Admin: 01/09/17 10:46 Dose: 81 mg Atorvastatin Calcium (Lipitor) 80 mg PO DIN [facility] Last Admin: 01/08/17 17:01 Dose: 80 mg Fluoxetine HCl (Prozac) 20 mg PO DAILY [facility] Last Admin: 01/07/17 09:52 Dose: 20 mg Gabapentin (Neurontin) 400 mg PO TID AIDEN PRN Reason: Protocol Last Admin: 01/07/17 13:16 Dose: 400 mg Lisinopril (Zestril) 20 mg PO DAILY [facility] Last Admin: 01/09/17 10:38 Dose: 20 mg Pantoprazole Sodium (Protonix Inj) 40 mg IVP DAILY [facility] Last Admin: 01/09/17 10:46 Dose: 40 mg Zaleplon (Sonata) 5 mg PO HS PRN PRN Reason: Insomnia Results - Vital Signs Recent Vital Signs: Last Vital Signs Temp 98.1 F 01/09/17 11:46 Pulse 74 01/09/17 11:46 Resp 18 01/09/17 11:46 BP 118/75 01/09/17 11:46 Pulse Ox 97 01/09/17 06:00 - Labs Result Diagrams: 01/08/17 08:30 01/08/17 08:30 Labs: Laboratory Results - last 24 hr 01/09/17 01/09/17 07:12 10:53 POC Glucose (mg/dL) 93 107
--- NOTE | 2017-01-09 14:31 | CP.PCM.PN ---
Subjective - Date & Time of Evaluation Date of Evaluation: 01/09/17 Time of Evaluation: 11:00 - Subjective Subjective: EEG REPORT: CONDITION OF THIS RECORDING: DROWSY DIAGNOSIS: EVALUATE FOR SEIZURE MEDICATIONS:l REVIEWED BY NURSE'S RECONCILIATION INTERPRETATION: THIS IS A 16 CHANNEL INTERNATIONAL RECORDING. THE BACKEND OF THIS TRACING WAS COMPOSED OF 8 CYCLES PER SECOND. THERE WAS SMALL AMOUNT OF BETA ACTIVITY OF 16-20 CPS IN THE RECORDING AND SMALL AMOUNT OF THETA ACTIVITY OF 5-7 CPS SEEN IN THIS TRACING. DROWSINESS WAS CHARACTERIZED BY MIXED BETA AND THETA ACTIVITIES. SLEEP WAS CHARACTERIZED BY VERTEX TRANSIENT WAVE, SLEEP SPINDLES, AND B/L SLOWING. PHOTIC STIMULATION SHOWED NO CHANGE IN THE TRACING. NO PAROXYSMAL ACTIVITY NOTED IN THIS RECORDING. EMG ARTIFACT WAS SEEN. CONCLUSION:NORMAL EEG . NO SEIZURE ACTIVITY. CLINICALLY CORRELATE. Staci RICHMOND MD Objective - Vital Signs/Intake and Output Vital Signs (last 24 hours): Temp Pulse Resp BP Pulse Ox 98.1 F 74 18 118/75 97 01/09/17 11:46 01/09/17 11:46 01/09/17 11:46 01/09/17 11:46 01/09/17 06:00 - Medications Medications: Current Medications Acetaminophen (Tylenol 650mg/20.3ml Solution Ud) 650 mg PO Q6H PRN PRN Reason: Temperature Last Admin: 01/09/17 08:39 Dose: 650 mg Alprazolam (Xanax) 0.5 mg PO BID PRN; Protocol PRN Reason: Anxiety Aspirin (Aspirin Chewable) 81 mg PO DAILY [facility] Last Admin: 01/09/17 10:46 Dose: 81 mg Atorvastatin Calcium (Lipitor) 80 mg PO DIN [facility] Last Admin: 01/08/17 17:01 Dose: 80 mg Fluoxetine HCl (Prozac) 20 mg PO DAILY [facility] Last Admin: 01/07/17 09:52 Dose: 20 mg Gabapentin (Neurontin) 400 mg PO TID AIDEN PRN Reason: Protocol Last Admin: 01/07/17 13:16 Dose: 400 mg Lisinopril (Zestril) 20 mg PO DAILY [facility] Last Admin: 01/09/17 10:38 Dose: 20 mg Pantoprazole Sodium (Protonix Inj) 40 mg IVP DAILY [facility] Last Admin: 01/09/17 10:46 Dose: 40 mg Zaleplon (Sonata) 5 mg PO HS PRN PRN Reason: Insomnia - Labs Labs: 01/08/17 08:30 01/08/17 08:30 PT 11.1 Seconds (9.9-11.8) 01/04/17 05:30 INR 1.03 (0.93-1.08) 01/04/17 05:30 APTT 25.7 Seconds (23.7-30.8) 01/04/17 05:30
[2017-01-10 08:21] LABS: BASO # 0.03 K/mm3 (0.0-2.0); BASO % 0.3 % (0.0-3.0); EOS # 0.2 (0.0-0.7); EOS % 1.9 % (1.5-5.0); GRAN # 5.92 (1.4-6.5); GRAN % 64.2 % (50.0-68.0); HEMOGLOBIN 13.1 gm/dL (12.0-16.0); LYMPH # 2.5 (1.2-3.4); LYMPH % 26.6 % (22.0-35.0); MEAN CELL VOLUME 95.4 fL (80.0-105.0); MEAN CORPUSCULAR HEMOGLOBIN 31.9 pg (25.0-35.0); MEAN CORPUSCULAR HGB CONC 33.4 g/dl (31.0-37.0); MEAN PLATELET VOLUME 10.8 fl (7.0-11.0); MONO # 0.7 (0.1-0.6); PLATELET COUNT 211 10^3/uL (120.0-450.0); RBC 4.11 10^6/uL (3.5-6.1); RED CELL DISTRIBUTION WIDTH 12.1 % (11.5-14.5); WHITE BLOOD COUNT 9.2 10^3/ul (4.5-11.0)
[2017-01-10 08:36] LABS: BLOOD UREA NITROGEN 17 mg/dL (7-21); CALCIUM 9.5 mg/dL (8.4-10.5); GFR AFRICAN-AMERICAN > 60; GFR NON-AFRICAN AMERICAN > 60
--- NOTE | 2017-01-10 11:50 | CP.PCM.PN ---
<Jaden Barr - Last Filed: 01/10/17 11:46> Subjective - Date & Time of Evaluation Date of Evaluation: 01/10/17 Time of Evaluation: 08:30 - Subjective Subjective: Patient seen and examined. No acute events overnight. Patient is resting comfortably in bed and offers no new complaints. Previous left sided weakness is unchanged. Patient denies fever, chills, chest pain, SOB, abdominal pain, n/ v. Objective - Vital Signs/Intake and Output Vital Signs (last 24 hours): Temp Pulse Resp BP Pulse Ox 98.4 F 88 20 147/90 98 01/10/17 11:44 01/10/17 11:44 01/10/17 11:44 01/10/17 11:44 01/10/17 06:00 Intake and Output: 01/10/17 01/10/17 06:59 18:59 Intake Total 80 Output Total 0 Balance 80 - Medications Medications: Current Medications Acetaminophen (Tylenol 650mg/20.3ml Solution Ud) 650 mg PO Q6H PRN PRN Reason: Temperature Last Admin: 01/09/17 08:39 Dose: 650 mg Alprazolam (Xanax) 0.5 mg PO BID PRN; Protocol PRN Reason: Anxiety Aspirin (Aspirin Chewable) 81 mg PO DAILY [facility] Last Admin: 01/10/17 09:28 Dose: 81 mg Atorvastatin Calcium (Lipitor) 80 mg PO DIN [facility] Last Admin: 01/09/17 17:59 Dose: 80 mg Fluoxetine HCl (Prozac) 20 mg PO DAILY [facility] Last Admin: 01/07/17 09:52 Dose: 20 mg Gabapentin (Neurontin) 400 mg PO TID AIDEN PRN Reason: Protocol Last Admin: 01/07/17 13:16 Dose: 400 mg Lisinopril (Zestril) 20 mg PO DAILY [facility] Last Admin: 01/10/17 09:28 Dose: 20 mg Pantoprazole Sodium (Protonix Inj) 40 mg IVP DAILY [facility] Last Admin: 01/10/17 09:28 Dose: 40 mg Zaleplon (Sonata) 5 mg PO HS PRN PRN Reason: Insomnia Zaleplon (Sonata) 5 mg PO HS PRN PRN Reason: Insomnia - Labs Labs: 01/10/17 08:00 01/10/17 08:00 PT 11.1 Seconds (9.9-11.8) 01/04/17 05:30 INR 1.03 (0.93-1.08) 01/04/17 05:30 APTT 25.7 Seconds (23.7-30.8) 01/04/17 05:30 - Additional Findings Additional findings: - Additional Findings Additional findings: - Constitutional Appears: No Acute Distress - Head Exam Head Exam: NORMAL INSPECTION, NORMOCEPHALIC - Eye Exam Eye Exam: EOMI, Normal appearance, - ENT Exam ENT Exam: Mucous Membranes Moist, Normal Exam - Neck Exam Neck Exam: Full ROM, Normal Inspection - Respiratory Exam Respiratory Exam: Clear to Ausculation Bilateral, NORMAL BREATHING PATTERN. absent: Rales, Rhonchi, Wheezes, Respiratory Distress - Cardiovascular Exam Cardiovascular Exam: REGULAR RHYTHM, +S1, +S2. absent: Murmur - GI/Abdominal Exam GI & Abdominal Exam: absent: Distended, Tenderness - Extremities Exam Extremities Exam: absent: Calf Tenderness, Pedal Edema - Neurological Exam Neurological Exam: Alert, Awake, CN II-XII Intact, Oriented x3 Neuro motor strength exam: Left Upper Extremity: 1/5, Right Upper Extremity: 5/5 , Left Lower Extremity: able to move digits on left foot but unable to grossly move lower extremity, Right Lower Extremity: 5/5 - Psychiatric Exam Psychiatric exam: Normal Affect, Normal Mood - Skin Skin Exam: Dry, Intact, Normal Color, Warm Assessment and Plan - Assessment and Plan (Free Text) Assessment: Patient is a 46yo female with a history of 2 prior CVA's, hypertension and hyperlipidemia who is admitted for evaluation and treatment for a suspected CVA/ TIA. Plan: 1. Left sided weakness - EEG read has no seizure activity, await further neuro recs - restart sonata PRN -holding prozac, gabapentin -Continue aspirin and lipitor -Continue neurochecks q2h -Recommend acute rehab placement, per PT/OT evaluation 2. Dysphagia -patient put on soft diet with finely chopped solids and thin liquids, per speech therapy -recommend outpatient followup with ENT for CT findings of nonspecific shotty cervical nodes at multiple levels and bilateral parotid lymph nodes to correlate patients dysphagia 3. Chest pain -Cont aspirin and lipitor -cardiology following 4. Insomnia -sonata PRN 5. Gi/DVT Prophylaxis -Protonix/SCD's Patient seen and case discussed with attending physician, Dr. Quevedo. <Roberth Quevedo - Last Filed: 01/10/17 12:27> Objective - Vital Signs/Intake and Output Vital Signs (last 24 hours): Temp Pulse Resp BP Pulse Ox 98.4 F 88 20 147/90 98 01/10/17 11:44 01/10/17 11:44 01/10/17 11:44 01/10/17 11:44 01/10/17 06:00 Intake and Output: 01/10/17 01/10/17 06:59 18:59 Intake Total 80 Output Total 0 Balance 80 - Medications Medications: Current Medications Acetaminophen (Tylenol 650mg/20.3ml Solution Ud) 650 mg PO Q6H PRN PRN Reason: Temperature Last Admin: 01/09/17 08:39 Dose: 650 mg Alprazolam (Xanax) 0.5 mg PO BID PRN; Protocol PRN Reason: Anxiety Aspirin (Aspirin Chewable) 81 mg PO DAILY [facility] Last Admin: 01/10/17 09:28 Dose: 81 mg Atorvastatin Calcium (Lipitor) 80 mg PO DIN [facility] Last Admin: 01/09/17 17:59 Dose: 80 mg Fluoxetine HCl (Prozac) 20 mg PO DAILY [facility] Last Admin: 01/07/17 09:52 Dose: 20 mg Gabapentin (Neurontin) 400 mg PO TID AIDEN PRN Reason: Protocol Last Admin: 01/07/17 13:16 Dose: 400 mg Lisinopril (Zestril) 20 mg PO DAILY [facility] Last Admin: 01/10/17 09:28 Dose: 20 mg Pantoprazole Sodium (Protonix Inj) 40 mg IVP DAILY [facility] Last Admin: 01/10/17 09:28 Dose: 40 mg Zaleplon (Sonata) 5 mg PO HS PRN PRN Reason: Insomnia Zaleplon (Sonata) 5 mg PO HS PRN PRN Reason: Insomnia - Labs Labs: 01/10/17 08:00 01/10/17 08:00 PT 11.1 Seconds (9.9-11.8) 01/04/17 05:30 INR 1.03 (0.93-1.08) 01/04/17 05:30 APTT 25.7 Seconds (23.7-30.8) 01/04/17 05:30 Attending/Attestation - Attestation I have personally seen and examined this patient.: Yes I have fully participated in the care of the patient.: Yes I have reviewed all pertinent clinical information, including history, physical exam and plan: Yes Notes (Text): 01/10/17 12:23 46 year old female with past medical history of prior CVAs, hypertension and dyslipidemia who presented with suspected stroke with symptoms of left sided weakness. She received TPA on admission and was admitted to the ICU. CT head showed age indeterminate lacunar infarct in the left basal ganglia. CTA and MRA were negative. MRI brain showed no acute intracranial abnormality, no evidence of acute infarct , showed an old lacunar infarction in the left montoya radiata. Echocardiogram and repeat CT heads were reviewed. EEG was negative. She is being followed by neurology. She is on aspirin and lipitor. PT was also following and had recommended acute rehab. PT follow up is requested. Psychiatry is following as well. Will resume sonata prn and prozac. Gabapentin is on hold. She initially complained of chest pain which has improved. Serial cardiac enzymes were negative and ACS was ruled out. Roberth Quevedo MD Hospitalist.
--- NOTE | 2017-01-10 12:05 | CP.PCM.CON ---
History of Present Illness - History of Present Illness History of Present Illness: f/u note: shortly pt initially was admitted to the ICU for evaluation of possible CVA, psych consult was called for med management and depression, pt was downgraded to the 2nd floor Further evaluation, January 07 afternoon patient had altered mental status, was not responding to painful stimuli, needed to be transferred back to CCU, pt was transfered back to the 2nd floor. Pt was seen today for f/u. pt reported that she slept well, presented to be less anxious, patient complain of the pain in her left arm. This scientific writer discussed case with Dr. lord, recommended to resume Xanax and possible Sonata if there is no contraindications , patient also should be resumed on Prozac. pt denied thoughts of harming self or others, denied feeling of hopelessness or helplessness. MSE: pt is alert and oriented in self, time and place, speech was normal rate, tone, quality and quantity, mood "I better", affect was constricted, but reactive/mood congruent, thought process is coherent and goal directed, thought content: pt denied v/t/a hallucinations, denied paranoid ideation, pt does not present to be psychotic, pt adamantly denied thoughts of harming self or others. Insight and judgment are fair, impulses are well predictable. Impression: r/o seizure disorder (neurologist on the case) r/o MDD r/o mood disorder due to a GMC (general medical condition) pt has multiple medical issues (please see above). r/o somatiform disorder (but unlikely) r/o conversion d/o (?) Plan: medical team hold prozac, consider to resume PRN Sonata hs for insomnia could be resumed if no contraindication from medical and neurology teams xanax PRN could be resumed if no contraindication from medical and neurology teams neurontin is the only new medication pt took right before AMS, consider not to resume it EEG was done, WNL, no seizure activities Neurology is f/u on pt this scientific writer will f/u on this pt and advise accordingly. collateral from family appreciated Past Patient History - Infectious Disease Hx of Infectious Diseases: None - Tetanus Immunizations Tetanus Immunization: Unknown - Past Social History Smoking Status: Never Smoked - CARDIAC Hx Hypertension: Yes - PULMONARY Hx Respiratory Disorders: No - NEUROLOGICAL HX Cerebrovascular Accident: Yes (L sided weakness, had TPA) - HEENT Hx HEENT Problems: No - RENAL Hx Chronic Kidney Disease: No - ENDOCRINE/METABOLIC Hx Endocrine Disorders: No - HEMATOLOGICAL/ONCOLOGICAL Hx Blood Disorders: No - INTEGUMENTARY Hx Dermatological Problems: No - MUSCULOSKELETAL/RHEUMATOLOGICAL Hx Musculoskeletal Disorders: Yes (Hx of Rt Knee Surgery 2015.) Hx Falls: No - GASTROINTESTINAL Hx Gastrointestinal Disorders: Yes (Gastritis) - GENITOURINARY/GYNECOLOGICAL Hx Genitourinary Disorders: No - PSYCHIATRIC Hx Depression: No Hx Emotional Abuse: No Hx Physical Abuse: No Hx Substance Use: No - SURGICAL HISTORY Hx Surgeries: No Hx Cholecystectomy: Yes Hx Hysterectomy: Yes - ANESTHESIA Hx Anesthesia: No Hx Anesthesia Reactions: No Hx Malignant Hyperthermia: No Meds Allergies/Adverse Reactions: Allergies Allergy/AdvReac Type Severity Reaction Status Date / Time avocado Allergy Severe SWELLING Verified 01/04/17 03:58 aspirin Allergy Intermediate NAUSEA Verified 01/08/17 09:23 apple Allergy SHORTNESS Verified 01/08/17 08:30 OF BREATH - Medications Medications: Current Medications Acetaminophen (Tylenol 650mg/20.3ml Solution Ud) 650 mg PO Q6H PRN PRN Reason: Temperature Last Admin: 01/09/17 08:39 Dose: 650 mg Alprazolam (Xanax) 0.5 mg PO BID PRN; Protocol PRN Reason: Anxiety Aspirin (Aspirin Chewable) 81 mg PO DAILY [facility] Last Admin: 01/10/17 09:28 Dose: 81 mg Atorvastatin Calcium (Lipitor) 80 mg PO DIN [facility] Last Admin: 01/09/17 17:59 Dose: 80 mg Fluoxetine HCl (Prozac) 20 mg PO DAILY [facility] Last Admin: 01/07/17 09:52 Dose: 20 mg Gabapentin (Neurontin) 400 mg PO TID [facility] PRN Reason: Protocol Last Admin: 01/07/17 13:16 Dose: 400 mg Lisinopril (Zestril) 20 mg PO DAILY [facility] Last Admin: 01/10/17 09:28 Dose: 20 mg Pantoprazole Sodium (Protonix Inj) 40 mg IVP DAILY [facility] Last Admin: 01/10/17 09:28 Dose: 40 mg Zaleplon (Sonata) 5 mg PO HS PRN PRN Reason: Insomnia Zaleplon (Sonata) 5 mg PO HS PRN PRN Reason: Insomnia Results - Vital Signs Recent Vital Signs: Last Vital Signs Temp 98.4 F 01/10/17 11:44 Pulse 88 01/10/17 11:44 Resp 20 01/10/17 11:44 BP 147/90 01/10/17 11:44 Pulse Ox 98 01/10/17 06:00 - Labs Result Diagrams: 01/10/17 08:00 01/10/17 08:00 Labs: Laboratory Results - last 24 hr 01/09/17 01/09/17 01/10/17 15:51 21:47 07:15 WBC RBC Hgb Hct MCV MCH MCHC RDW Plt Count MPV Gran % Lymph % (Auto) [place] % (Auto) Eos % (Auto) Baso % (Auto) Gran # Lymph # [place] # Eos # Baso # Sodium Potassium Chloride Carbon Dioxide Anion Gap BUN Creatinine Est GFR ( Amer) Est GFR (Non-Af Amer) POC Glucose (mg/dL) 121 H 101 92 Random Glucose Calcium 01/10/17 01/10/17 01/10/17 08:00 08:00 11:43 WBC 9.2 RBC 4.11 Hgb 13.1 Hct 39.2 MCV 95.4 MCH 31.9 MCHC 33.4 RDW 12.1 Plt Count 211 MPV 10.8 Gran % 64.2 Lymph % (Auto) 26.6 [place] % (Auto) 7.0 H Eos % (Auto) 1.9 Baso % (Auto) 0.3 Gran # 5.92 Lymph # 2.5 [place] # 0.7 H Eos # 0.2 Baso # 0.03 Sodium 138 Potassium 4.1 Chloride 102 Carbon Dioxide 24 Anion Gap 16 BUN 17 Creatinine 0.5 Est GFR ( Amer) > 60 Est GFR (Non-Af Amer) > 60 POC Glucose (mg/dL) 94 Random Glucose 98 Calcium 9.5
[2017-01-10] MEDS: Acetaminophen 650mg/20.3ml solution UD PO PRN (16:08)
[2017-01-11 08:19] LABS: BASO # 0.02 K/mm3 (0.0-2.0); BASO % 0.2 % (0.0-3.0); EOS # 0.2 (0.0-0.7); EOS % 1.6 % (1.5-5.0); GRAN # 6.35 (1.4-6.5); HEMOGLOBIN 12.6 gm/dL (12.0-16.0); LYMPH # 2.3 (1.2-3.4); LYMPH % 24.7 % (22.0-35.0); MEAN CELL VOLUME 95.9 fL (80.0-105.0); MEAN CORPUSCULAR HEMOGLOBIN 32.1 pg (25.0-35.0); MEAN CORPUSCULAR HGB CONC 33.4 g/dl (31.0-37.0); MEAN PLATELET VOLUME 10.7 fl (7.0-11.0); MONO # 0.6 (0.1-0.6); MONO % 6.5 % (1.0-6.0); PLATELET COUNT 213 10^3/uL (120.0-450.0); RBC 3.93 10^6/uL (3.5-6.1); RED CELL DISTRIBUTION WIDTH 12.1 % (11.5-14.5); WHITE BLOOD COUNT 9.5 10^3/ul (4.5-11.0)
[2017-01-11 08:28] LABS: BLOOD UREA NITROGEN 15 mg/dL (7-21); CALCIUM 9.2 mg/dL (8.4-10.5); GFR AFRICAN-AMERICAN > 60; GFR NON-AFRICAN AMERICAN > 60
--- NOTE | 2017-01-11 15:52 | CP.PCM.CON ---
History of Present Illness - History of Present Illness History of Present Illness: f/u note: shortly pt initially was admitted to the ICU for evaluation of possible CVA, psych consult was called for med management and depression, pt was downgraded to the 2nd floor Further evaluation, January 07 afternoon patient had altered mental status, was not responding to painful stimuli, needed to be transferred back to CCU, pt was transfered back to the 2nd floor. Pt was seen today for f/u. pt reported that she slept well, presented to be less anxious, patient complain of the pain and weakness in her left side of the body. This continuity writer discussed case with , jaqui whitehead and nicholas resumed, pt did not ask for xanax or sonata, was less anxious, had a good night sleep. collaterals from pt's daughter, pt was upset that her daughter with schizophrenia was d/c from [facility] [place] today. pt was provided with emotional support and empathic listening, pt was receptive. pt denied thoughts of harming self or others, denied feeling of hopelessness or helplessness. MSE: pt is alert and oriented in self, time and place, speech was normal rate, tone, quality and quantity, mood "I better", affect was constricted, but reactive/mood congruent, thought process is coherent and goal directed, thought content: pt denied v/t/a hallucinations, denied paranoid ideation, pt does not present to be psychotic, pt adamantly denied thoughts of harming self or others. Insight and judgment are fair, impulses are well predictable. Impression: seizure disorder was r/o r/o adverse reaction due to Neurontin r/o MDD r/o mood disorder due to a C (general medical condition) pt has multiple medical issues (please see above). r/o somatiform disorder (but unlikely) r/o conversion d/o (?) Plan: medical team resumed jaqui peterson xanax EEG was done, WNL, no seizure activities Neurology is f/u on pt this continuity writer will f/u on this pt and advise accordingly. collateral from family appreciated Past Patient History - Infectious Disease Hx of Infectious Diseases: None - Tetanus Immunizations Tetanus Immunization: Unknown - Past Social History Smoking Status: Never Smoked - CARDIAC Hx Hypertension: Yes - PULMONARY Hx Respiratory Disorders: No - NEUROLOGICAL HX Cerebrovascular Accident: Yes (L sided weakness, had TPA) - HEENT Hx HEENT Problems: No - RENAL Hx Chronic Kidney Disease: No - ENDOCRINE/METABOLIC Hx Endocrine Disorders: No - HEMATOLOGICAL/ONCOLOGICAL Hx Blood Disorders: No - INTEGUMENTARY Hx Dermatological Problems: No - MUSCULOSKELETAL/RHEUMATOLOGICAL Hx Musculoskeletal Disorders: Yes (Hx of Rt Knee Surgery 2015.) Hx Falls: No - GASTROINTESTINAL Hx Gastrointestinal Disorders: Yes (Gastritis) - GENITOURINARY/GYNECOLOGICAL Hx Genitourinary Disorders: No - PSYCHIATRIC Hx Depression: No Hx Emotional Abuse: No Hx Physical Abuse: No Hx Substance Use: No - SURGICAL HISTORY Hx Surgeries: No Hx Cholecystectomy: Yes Hx Hysterectomy: Yes - ANESTHESIA Hx Anesthesia: No Hx Anesthesia Reactions: No Hx Malignant Hyperthermia: No Meds Allergies/Adverse Reactions: Allergies Allergy/AdvReac Type Severity Reaction Status Date / Time avocado Allergy Severe SWELLING Verified 01/04/17 03:58 aspirin Allergy Intermediate NAUSEA Verified 01/08/17 09:23 apple Allergy SHORTNESS Verified 01/08/17 08:30 OF BREATH - Medications Medications: Current Medications Acetaminophen (Tylenol 650mg/20.3ml Solution Ud) 650 mg PO Q6H PRN PRN Reason: Temperature Last Admin: 01/10/17 16:08 Dose: 650 mg Alprazolam (Xanax) 0.5 mg PO BID PRN; Protocol PRN Reason: Anxiety Aspirin (Aspirin Chewable) 81 mg PO DAILY [facility] Last Admin: 01/11/17 10:18 Dose: 81 mg Atorvastatin Calcium (Lipitor) 80 mg PO DIN [facility] Last Admin: 01/10/17 17:08 Dose: 80 mg Fluoxetine HCl (Prozac) 20 mg PO DAILY [facility] Last Admin: 01/11/17 10:18 Dose: 20 mg Gabapentin (Neurontin) 400 mg PO TID [facility] PRN Reason: Protocol Last Admin: 01/11/17 13:28 Dose: 400 mg Lisinopril (Zestril) 20 mg PO DAILY [facility] Last Admin: 01/11/17 10:17 Dose: 20 mg Pantoprazole Sodium (Protonix Inj) 40 mg IVP DAILY [facility] Last Admin: 01/11/17 10:18 Dose: 40 mg Zaleplon (Sonata) 5 mg PO HS PRN PRN Reason: Insomnia Results - Vital Signs Recent Vital Signs: Last Vital Signs Temp 98.4 F 01/11/17 12:00 Pulse 87 01/11/17 12:00 Resp 20 01/11/17 12:00 BP 127/70 01/11/17 12:00 Pulse Ox 96 01/11/17 06:00 - Labs Result Diagrams: 01/11/17 07:40 01/11/17 07:40 Labs: Laboratory Results - last 24 hr 01/10/17 01/10/17 01/11/17 15:58 21:29 07:18 WBC RBC Hgb Hct MCV MCH MCHC RDW Plt Count MPV Gran % Lymph % (Auto) [place] % (Auto) Eos % (Auto) Baso % (Auto) Gran # Lymph # [place] # Eos # Baso # Sodium Potassium Chloride Carbon Dioxide Anion Gap BUN Creatinine Est GFR ( Amer) Est GFR (Non-Af Amer) POC Glucose (mg/dL) 104 100 98 Random Glucose Calcium 01/11/17 01/11/17 01/11/17 07:40 07:40 11:28 WBC 9.5 RBC 3.93 Hgb 12.6 Hct 37.7 MCV 95.9 MCH 32.1 MCHC 33.4 RDW 12.1 Plt Count 213 MPV 10.7 Gran % 67.0 Lymph % (Auto) 24.7 [place] % (Auto) 6.5 H Eos % (Auto) 1.6 Baso % (Auto) 0.2 Gran # 6.35 Lymph # 2.3 [place] # 0.6 Eos # 0.2 Baso # 0.02 Sodium 138 Potassium 4.3 Chloride 101 Carbon Dioxide 27 Anion Gap 14 BUN 15 Creatinine 0.5 Est GFR ( Amer) > 60 Est GFR (Non-Af Amer) > 60 POC Glucose (mg/dL) 90 Random Glucose 96 Calcium 9.2
--- NOTE | 2017-01-11 16:30 | CP.PCM.PN ---
<TRA MEEHAN - Last Filed: 01/11/17 16:24> Subjective - Date & Time of Evaluation Date of Evaluation: 01/11/17 Time of Evaluation: 07:40 - Subjective Subjective: Medicine Progress Note: Pt was seen and assessed at bedside. Pt reports that there is no improvement in left sided weakness. Pt with no new complaints. Pt denies chest pain, SOB, headache, fever, dizziness or abdominal pain. Objective - Vital Signs/Intake and Output Vital Signs (last 24 hours): Temp Pulse Resp BP Pulse Ox 98.4 F 83 20 127/70 96 01/11/17 12:00 01/11/17 14:00 01/11/17 12:00 01/11/17 12:00 01/11/17 06:00 Intake and Output: 01/11/17 01/11/17 06:59 18:59 Intake Total 840 Output Total 1800 Balance -960 - Medications Medications: Current Medications Acetaminophen (Tylenol 650mg/20.3ml Solution Ud) 650 mg PO Q6H PRN PRN Reason: Temperature Last Admin: 01/10/17 16:08 Dose: 650 mg Alprazolam (Xanax) 0.5 mg PO BID PRN; Protocol PRN Reason: Anxiety Aspirin (Aspirin Chewable) 81 mg PO DAILY [facility] Last Admin: 01/11/17 10:18 Dose: 81 mg Atorvastatin Calcium (Lipitor) 80 mg PO DIN [facility] Last Admin: 01/10/17 17:08 Dose: 80 mg Clopidogrel Bisulfate (Plavix) 75 mg PO DAILY [facility] Fluoxetine HCl (Prozac) 20 mg PO DAILY [facility] Last Admin: 01/11/17 10:18 Dose: 20 mg Gabapentin (Neurontin) 100 mg PO TID [facility] PRN Reason: Protocol Lisinopril (Zestril) 20 mg PO DAILY [facility] Last Admin: 01/11/17 10:17 Dose: 20 mg Pantoprazole Sodium (Protonix Inj) 40 mg IVP DAILY [facility] Last Admin: 01/11/17 10:18 Dose: 40 mg Zaleplon (Sonata) 5 mg PO HS PRN PRN Reason: Insomnia - Labs Labs: 01/11/17 07:40 01/11/17 07:40 PT 11.1 Seconds (9.9-11.8) 01/04/17 05:30 INR 1.03 (0.93-1.08) 01/04/17 05:30 APTT 25.7 Seconds (23.7-30.8) 01/04/17 05:30 - Constitutional Appears: No Acute Distress - Head Exam Head Exam: NORMAL INSPECTION, NORMOCEPHALIC - Eye Exam Eye Exam: EOMI, Normal appearance - ENT Exam ENT Exam: Mucous Membranes Moist, Normal Exam - Neck Exam Neck Exam: Full ROM, Lymphadenopathy - Respiratory Exam Respiratory Exam: Clear to Ausculation Bilateral, NORMAL BREATHING PATTERN. absent: Rales, Rhonchi, Wheezes - Cardiovascular Exam Cardiovascular Exam: REGULAR RHYTHM, +S1, +S2. absent: Murmur - GI/Abdominal Exam GI & Abdominal Exam: absent: Distended, Tenderness - Extremities Exam Extremities Exam: absent: Calf Tenderness, Pedal Edema - Neurological Exam Neurological Exam: Alert, Awake, Oriented x3 - Psychiatric Exam Psychiatric exam: Normal Affect, Normal Mood - Skin Skin Exam: Dry, Intact, Normal Color, Warm Assessment and Plan - Assessment and Plan (Free Text) Assessment: Patient is a 46yo female with a history of 2 prior CVA's, hypertension and hyperlipidemia who is admitted for evaluation and treatment for a suspected CVA/ TIA. 1. Left sided weakness -restart gabapentin but at lower dose of 100mg -start plavix 75mg, per neuro -Continue aspirin and lipitor -Continue neurochecks q2h -Recommend acute rehab placement, per PT/OT evaluation 2. 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 Chest pain -Cont aspirin and lipitor -cardiology following 4. Insomnia -sonata PRN 5. Gi/DVT Prophylaxis -Protonix/SCD's Patient seen and case discussed with attending physician, Dr. Quevedo. <Roberth Quevedo - Last Filed: 01/11/17 17:14> Objective - Vital Signs/Intake and Output Vital Signs (last 24 hours): Temp Pulse Resp BP Pulse Ox 98.4 F 83 20 127/70 96 01/11/17 12:00 01/11/17 14:00 01/11/17 12:00 01/11/17 12:00 01/11/17 06:00 Intake and Output: 07/10/17 07/10/17 06:59 18:59 Intake Total 840 Output Total 1800 Balance -960 - Medications Medications: Current Medications Acetaminophen (Tylenol 650mg/20.3ml Solution Ud) 650 mg PO Q6H PRN PRN Reason: Temperature Last Admin: 01/10/17 16:08 Dose: 650 mg Alprazolam (Xanax) 0.5 mg PO BID PRN; Protocol PRN Reason: Anxiety Aspirin (Aspirin Chewable) 81 mg PO DAILY [facility] Last Admin: 01/11/17 10:18 Dose: 81 mg Atorvastatin Calcium (Lipitor) 80 mg PO DIN [facility] Last Admin: 01/10/17 17:08 Dose: 80 mg Clopidogrel Bisulfate (Plavix) 75 mg PO DAILY [facility] Fluoxetine HCl (Prozac) 20 mg PO DAILY [facility] Last Admin: 01/11/17 10:18 Dose: 20 mg Gabapentin (Neurontin) 100 mg PO TID [facility] PRN Reason: Protocol Lisinopril (Zestril) 20 mg PO DAILY [facility] Last Admin: 01/11/17 10:17 Dose: 20 mg Pantoprazole Sodium (Protonix Inj) 40 mg IVP DAILY [facility] Last Admin: 01/11/17 10:18 Dose: 40 mg Zaleplon (Sonata) 5 mg PO HS PRN PRN Reason: Insomnia - Labs Labs: 01/11/17 07:40 01/11/17 07:40 PT 11.1 Seconds (9.9-11.8) 01/04/17 05:30 INR 1.03 (0.93-1.08) 01/04/17 05:30 APTT 25.7 Seconds (23.7-30.8) 01/04/17 05:30 Attending/Attestation - Attestation I have personally seen and examined this patient.: Yes I have fully participated in the care of the patient.: Yes I have reviewed all pertinent clinical information, including history, physical exam and plan: Yes Notes (Text): 01/11/17 17:08 46 year old female with past medical history of prior CVAs, hypertension and dyslipidemia who presented with suspected stroke with symptoms of left sided weakness. She received TPA on admission and was admitted to the ICU. CT head showed age indeterminate lacunar infarct in the left basal ganglia. CTA and MRA were negative. MRI brain showed no acute intracranial abnormality, no evidence of acute infarct , showed an old lacunar infarction in the left mnotoya radiata. Echocardiogram and repeat CT heads were reviewed. EEG was negative. She is being followed by neurology, cardiology and psychiatry. She is on aspirin, plavix and lipitor. She is on sonata prn and prozac. Her gabapentin was held from last week after her VIDEO OPERATOR for unresponsiveness. However she reports this has been her home medication for neuropathy. Will resume at a lower dose and monitor. Today she states she wants to be discharged home because her daughter may also be discharged from a different medical facility. I have explained to her at this time she still has left sided weakness and PT has been recommending acute rehab. We will request for PT follow up today. Her other daughter is also at bedside and questions were answered. Roberth Quevedo MD Hospitalist.
--- NOTE | 2017-01-11 16:59 | CP.PCM.PN ---
Subjective - Date & Time of Evaluation Date of Evaluation: 01/11/17 Time of Evaluation: 09:15 - Subjective Subjective: Feels same no further episode of un responsiveness Objective - Vital Signs/Intake and Output Vital Signs (last 24 hours): Temp Pulse Resp BP Pulse Ox 98.4 F 83 20 127/70 96 01/11/17 12:00 01/11/17 14:00 01/11/17 12:00 01/11/17 12:00 01/11/17 06:00 Intake and Output: 01/11/17 01/11/17 06:59 18:59 Intake Total 840 Output Total 1800 Balance -960 - Medications Medications: Current Medications Acetaminophen (Tylenol 650mg/20.3ml Solution Ud) 650 mg PO Q6H PRN PRN Reason: Temperature Last Admin: 01/10/17 16:08 Dose: 650 mg Alprazolam (Xanax) 0.5 mg PO BID PRN; Protocol PRN Reason: Anxiety Aspirin (Aspirin Chewable) 81 mg PO DAILY [facility] Last Admin: 01/11/17 10:18 Dose: 81 mg Atorvastatin Calcium (Lipitor) 80 mg PO DIN [facility] Last Admin: 01/10/17 17:08 Dose: 80 mg Clopidogrel Bisulfate (Plavix) 75 mg PO DAILY [facility] Fluoxetine HCl (Prozac) 20 mg PO DAILY [facility] Last Admin: 01/11/17 10:18 Dose: 20 mg Gabapentin (Neurontin) 100 mg PO TID [facility] PRN Reason: Protocol Lisinopril (Zestril) 20 mg PO DAILY [facility] Last Admin: 01/11/17 10:17 Dose: 20 mg Pantoprazole Sodium (Protonix Inj) 40 mg IVP DAILY [facility] Last Admin: 01/11/17 10:18 Dose: 40 mg Zaleplon (Sonata) 5 mg PO HS PRN PRN Reason: Insomnia - Labs Labs: 01/11/17 07:40 01/11/17 07:40 PT 11.1 Seconds (9.9-11.8) 01/04/17 05:30 INR 1.03 (0.93-1.08) 01/04/17 05:30 APTT 25.7 Seconds (23.7-30.8) 01/04/17 05:30 - Constitutional Appears: Non-toxic - Head Exam Head Exam: ATRAUMATIC - Eye Exam Eye Exam: Conjunctival injection - ENT Exam ENT Exam: Mucous Membranes Dry - Neck Exam Neck Exam: Full ROM - Respiratory Exam Respiratory Exam: Clear to Ausculation Bilateral - Cardiovascular Exam Cardiovascular Exam: REGULAR RHYTHM - GI/Abdominal Exam GI & Abdominal Exam: Soft Assessment and Plan - Assessment and Plan (Free Text) Assessment: CVa with Left Sided weaknness period of unresponsiveness 3 days ago repeat neuro W/u negative no evidece of ACs HTN hyperlipidemia Plan: [facility] statin rehab neuro F/u.
[2017-01-12 07:10] LABS: BASO # 0.03 K/mm3 (0.0-2.0); BASO % 0.3 % (0.0-3.0); EOS # 0.2 (0.0-0.7); EOS % 1.9 % (1.5-5.0); GRAN # 5.54 (1.4-6.5); GRAN % 60.4 % (50.0-68.0); HEMOGLOBIN 12.6 gm/dL (12.0-16.0); LYMPH # 2.6 (1.2-3.4); LYMPH % 28.7 % (22.0-35.0); MEAN CELL VOLUME 95.4 fL (80.0-105.0); MEAN CORPUSCULAR HGB CONC 33.5 g/dl (31.0-37.0); MEAN PLATELET VOLUME 10.6 fl (7.0-11.0); MONO # 0.8 (0.1-0.6); MONO % 8.7 % (1.0-6.0); PLATELET COUNT 209 10^3/uL (120.0-450.0); RBC 3.94 10^6/uL (3.5-6.1); RED CELL DISTRIBUTION WIDTH 12.1 % (11.5-14.5); WHITE BLOOD COUNT 9.2 10^3/ul (4.5-11.0)
[2017-01-12 07:23] LABS: BLOOD UREA NITROGEN 12 mg/dL (7-21); CALCIUM 9.4 mg/dL (8.4-10.5); GFR AFRICAN-AMERICAN > 60; GFR NON-AFRICAN AMERICAN > 60
--- NOTE | 2017-01-12 10:28 | CP.PCM.PN ---
Subjective - Date & Time of Evaluation Date of Evaluation: 01/12/17 Time of Evaluation: 08:45 - Subjective Subjective: No new complain, Lying on bed inabillity to lif left arm and Leg. Objective - Vital Signs/Intake and Output Vital Signs (last 24 hours): Temp Pulse Resp BP Pulse Ox 98.4 F 77 22 107/65 97 01/12/17 06:00 01/12/17 06:00 01/12/17 06:00 01/12/17 06:00 01/12/17 06:00 Intake and Output: 01/12/17 01/12/17 06:59 18:59 Intake Total 480 Output Total 1000 Balance -520 - Medications Medications: Current Medications Acetaminophen (Tylenol 650mg/20.3ml Solution Ud) 650 mg PO Q6H PRN PRN Reason: Temperature Last Admin: 01/10/17 16:08 Dose: 650 mg Alprazolam (Xanax) 0.5 mg PO BID PRN; Protocol PRN Reason: Anxiety Aspirin (Aspirin Chewable) 81 mg PO DAILY [facility] Last Admin: 01/11/17 10:18 Dose: 81 mg Atorvastatin Calcium (Lipitor) 80 mg PO DIN [facility] Last Admin: 01/11/17 17:12 Dose: 80 mg Clopidogrel Bisulfate (Plavix) 75 mg PO DAILY [facility] Fluoxetine HCl (Prozac) 20 mg PO DAILY [facility] Last Admin: 01/11/17 10:18 Dose: 20 mg Gabapentin (Neurontin) 100 mg PO TID [facility] PRN Reason: Protocol Last Admin: 01/11/17 17:13 Dose: 100 mg Lisinopril (Zestril) 20 mg PO DAILY [facility] Last Admin: 01/11/17 10:17 Dose: 20 mg Pantoprazole Sodium (Protonix Inj) 40 mg IVP DAILY [facility] Last Admin: 01/11/17 10:18 Dose: 40 mg Zaleplon (Sonata) 5 mg PO HS PRN PRN Reason: Insomnia - Labs Labs: 01/12/17 06:00 01/12/17 06:00 PT 11.1 Seconds (9.9-11.8) 01/04/17 05:30 INR 1.03 (0.93-1.08) 01/04/17 05:30 APTT 25.7 Seconds (23.7-30.8) 01/04/17 05:30 - Constitutional Appears: Non-toxic - Head Exam Head Exam: ATRAUMATIC - Eye Exam Eye Exam: Conjunctival injection - ENT Exam ENT Exam: Mucous Membranes Dry - Neck Exam Neck Exam: Normal Inspection - Cardiovascular Exam Cardiovascular Exam: REGULAR RHYTHM - GI/Abdominal Exam GI & Abdominal Exam: Normal Bowel Sounds - Neurological Exam Neuro motor strength exam: Left Upper Extremity: 2/1, Right Upper Extremity: 5, Left Lower Extremity: 2/1, Right Lower Extremity: 5 Assessment and Plan - Assessment and Plan (Free Text) Assessment: CVA with left sided weakness HTN hyperlipidemia Plan: Continue ASA/ Plavix Continue Statin Continue Rehab Neuro F/u and Psych F/u.
--- NOTE | 2017-01-12 11:51 | CP.PCM.CON ---
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 Patient at the time was giving tpa, and was admitted to ICU. Serial CT head was unaged, revealing old lacunar infarct in the basal ganglia, with MRI collaborating with the result. Patient also had CTA of the neck with no carotid stenosis, and degenerative disc in c spine. Patient also had EEG with no seizure like activity. Patient continued to experience left upper and lower extremities pain and weakness. PMH: As mentioned above' PSH: Cholecystectomy and hysterectom,y Review of Systems - Review of Systems All systems: reviewed and no additional remarkable complaints except Review of Systems: As per HPI. Past Patient History - Infectious Disease Hx of Infectious Diseases: None - Tetanus Immunizations Tetanus Immunization: Unknown - Past Social History Smoking Status: Never Smoked - CARDIAC Hx Hypertension: Yes - PULMONARY Hx Respiratory Disorders: No - NEUROLOGICAL HX Cerebrovascular Accident: Yes (L sided weakness, had TPA) - HEENT Hx HEENT Problems: No - RENAL Hx Chronic Kidney Disease: No - ENDOCRINE/METABOLIC Hx Endocrine Disorders: No - HEMATOLOGICAL/ONCOLOGICAL Hx Blood Disorders: No - INTEGUMENTARY Hx Dermatological Problems: No - MUSCULOSKELETAL/RHEUMATOLOGICAL Hx Musculoskeletal Disorders: Yes (Hx of Rt Knee Surgery 2014.) Hx Falls: No - GASTROINTESTINAL Hx Gastrointestinal Disorders: Yes (Gastritis) - GENITOURINARY/GYNECOLOGICAL Hx Genitourinary Disorders: No - PSYCHIATRIC Hx Depression: No Hx Emotional Abuse: No Hx Physical Abuse: No Hx Substance Use: No - SURGICAL HISTORY Hx Surgeries: No Hx Cholecystectomy: Yes Hx Hysterectomy: Yes - ANESTHESIA Hx Anesthesia: No Hx Anesthesia Reactions: No Hx Malignant Hyperthermia: No Meds Allergies/Adverse Reactions: Allergies Allergy/AdvReac Type Severity Reaction Status Date / Time avocado Allergy Severe SWELLING Verified 01/04/17 03:58 aspirin Allergy Intermediate NAUSEA Verified 01/08/17 09:23 apple Allergy SHORTNESS Verified 01/08/17 08:30 OF BREATH - Medications Medications: Current Medications Acetaminophen (Tylenol 650mg/20.3ml Solution Ud) 650 mg PO Q6H PRN PRN Reason: Temperature Last Admin: 01/10/17 16:08 Dose: 650 mg Alprazolam (Xanax) 0.5 mg PO BID PRN; Protocol PRN Reason: Anxiety Aspirin (Aspirin Chewable) 81 mg PO DAILY [facility] Last Admin: 01/12/17 10:55 Dose: 81 mg Atorvastatin Calcium (Lipitor) 80 mg PO DIN [facility] Last Admin: 01/11/17 17:12 Dose: 80 mg Clopidogrel Bisulfate (Plavix) 75 mg PO DAILY [facility] Last Admin: 01/12/17 10:55 Dose: 75 mg Fluoxetine HCl (Prozac) 20 mg PO DAILY [facility] Last Admin: 01/12/17 10:54 Dose: 20 mg Gabapentin (Neurontin) 100 mg PO TID [facility] PRN Reason: Protocol Last Admin: 01/12/17 10:54 Dose: 100 mg Lisinopril (Zestril) 20 mg PO DAILY [facility] Last Admin: 01/12/17 10:55 Dose: 20 mg Pantoprazole Sodium (Protonix Inj) 40 mg IVP DAILY [facility] Last Admin: 01/12/17 10:54 Dose: 40 mg Zaleplon (Sonata) 5 mg PO HS PRN PRN Reason: Insomnia Physical Exam - Constitutional Appears: No Acute Distress - Head Exam Head Exam: ATRAUMATIC, NORMAL INSPECTION, NORMOCEPHALIC - Eye Exam Eye Exam: EOMI, Normal appearance, PERRL Pupil Exam: NORMAL ACCOMODATION, PERRL - ENT Exam ENT Exam: Mucous Membranes Moist, Normal Exam - Neck Exam Neck exam: Positive for: Normal Inspection - Respiratory Exam Respiratory Exam: Clear to Auscultation Bilateral, NORMAL BREATHING PATTERN. absent: Rales, Rhonchi, Wheezes, Respiratory Distress, Stridor - Cardiovascular Exam Cardiovascular Exam: REGULAR RHYTHM, RRR, +S1, +S2 - GI/Abdominal Exam GI & Abdominal Exam: Normal Bowel Sounds, Soft. absent: Tenderness - Extremities Exam Extremities exam: Positive for: normal inspection. Negative for: pedal edema - Back Exam Back exam: NORMAL INSPECTION - Neurological Exam Neurological exam: Alert, CN II-XII Intact, Oriented x3, Reflexes Normal Additional comments: Mental status: Patient is a&ox3, Attention, thought process and insight and judgment are appropriate. Speaking in full sentences. Affect is flat. CNII-CNXII- Perrla, VFF by confrontation, EMOI, no nystagamus, no ptosis, sensation intact to light touch. [place] muscles strong symmetrically, no facial asymmetry. Tongue protrude midline, no atrophy or fasciculation. Sensory: fine touch intact, pp temperature, vibration sensations and proprioceptive functions intact. There is no evidence of extinction to DSS. Motor exam: left upper and left lower extremities 3/5, 5/5 on the right upper and lower extremities, no tremors and no muscle rigidity. Gait deferred. Good muscle tone. Reflex: deep tendon reflex were plus 2 with flexor plantar response on the LE. - Psychiatric Exam Psychiatric exam: Flat Affect - Skin Skin Exam: Dry, Normal Color, Warm Results - Vital Signs Recent Vital Signs: Last Vital Signs Temp 98.4 F 01/12/17 06:00 Pulse 82 01/12/17 10:55 Resp 22 01/12/17 06:00 BP 119/78 01/12/17 10:55 Pulse Ox 97 01/12/17 06:00 - Labs Result Diagrams: 01/12/17 06:00 01/12/17 06:00 Labs: Laboratory Results - last 24 hr 01/11/17 01/11/17 01/11/17 07:18 11:28 16:18 WBC RBC Hgb Hct MCV MCH MCHC RDW Plt Count MPV Gran % Lymph % (Auto) Trigg % (Auto) Eos % (Auto) Baso % (Auto) Gran # Lymph # Trigg # Eos # Baso # Sodium Potassium Chloride Carbon Dioxide Anion Gap BUN Creatinine Est GFR ( Amer) Est GFR (Non-Af Amer) POC Glucose (mg/dL) 98 90 90 Random Glucose Calcium 01/11/17 01/12/17 01/12/17 20:49 06:00 06:00 WBC 9.2 RBC 3.94 Hgb 12.6 Hct 37.6 MCV 95.4 MCH 32.0 MCHC 33.5 RDW 12.1 Plt Count 209 MPV 10.6 Gran % 60.4 Lymph % (Auto) 28.7 Trigg % (Auto) 8.7 H Eos % (Auto) 1.9 Baso % (Auto) 0.3 Gran # 5.54 Lymph # 2.6 Trigg # 0.8 H Eos # 0.2 Baso # 0.03 Sodium 136 Potassium 4.7 Chloride 99 Carbon Dioxide 28 Anion Gap 14 BUN 12 Creatinine 0.5 Est GFR ( Amer) > 60 Est GFR (Non-Af Amer) > 60 POC Glucose (mg/dL) 112 H Random Glucose 96 Calcium 9.4 Assessment & Plan - Assessment and Plan (Free Text) Assessment: Patient is an 46 y/o with pmh of CVA X2 ( 2014 AND 2012 ( GOT TPA), HTN, and hld whom presented to [facility] on 01/03/17 with left upper and lower extremities weakness and pain, with initial CT and MRI of the head revealing old lacunar infarct s/p TPA. Patient continued to experience the left lower and upper extremities weakness and pain. Impression: - Date & Time Date: 01/12/17 Time: 11:00
--- NOTE | 2017-01-12 12:20 | CP.PCM.PCO ---
Assessment & Plan - Assessment and Plan (Free Text) Assessment: NEURO COMMUNICATION NOTE: 1)PATIENT WITH LEFT SIDE WEAKNESS WITHOUT ANY CENTRAL PROCESS, WITH POSSIBILITY OF RESIDUAL TODDS PARALYSIS, PATIENT WITH BENEFIT FROM ACUTE REHAB AND PHYSICAL / OCCUPATIONAL THERAPY. CICI SEGOVIA.
--- NOTE | 2017-01-12 14:38 | CP.PCM.CON ---
History of Present Illness - History of Present Illness History of Present Illness: f/u note: shortly pt initially was admitted to the ICU for evaluation of possible CVA, psych consult was called for med management and depression, pt was downgraded to the 2nd floor Further evaluation, January 07 afternoon patient had altered mental status, was not responding to painful stimuli, needed to be transferred back to CCU, pt was transfered back to the 2nd floor. Pt was seen today for f/u. Patient affect is more reactive, patient complained that she didn't sleep last night, patient was advised to us for medication case if she will be not able to fall asleep and stay asleep, physical therapy recommended acute rehabilitation, neurology notes reviewed.. Patient reported to have tense and feeling of depression, denied thoughts of harming herself or others, denied intent or plan. MSE: pt is alert and oriented in self, time and place, speech was normal rate, tone, quality and quantity, mood "I better", affect was constricted, but reactive/mood congruent, thought process is coherent and goal directed, thought content: pt denied v/t/a hallucinations, denied paranoid ideation, pt does not present to be psychotic, pt adamantly denied thoughts of harming self or others. Insight and judgment are fair, impulses are well predictable. Impression: seizure disorder was r/o pt had episode of AMS, was drowsy, lethargic, r/o adverse reaction due to Neurontin pt has some residual weakness Left side r/o MDD r/o mood disorder due to a GMC (general medical condition) pt has multiple medical issues (please see above). r/o somatiform disorder (but unlikely) r/o conversion d/o (?) Plan: medical team resumed jaqui peterson xanax EEG was done, WNL, no seizure activities Neurology is f/u on pt plan acute rehab this speech writer will will sign off collateral from family appreciated should you have any questions, give me a call back Past Patient History - Infectious Disease Hx of Infectious Diseases: None - Tetanus Immunizations Tetanus Immunization: Unknown - Past Social History Smoking Status: Never Smoked - CARDIAC Hx Hypertension: Yes - PULMONARY Hx Respiratory Disorders: No - NEUROLOGICAL HX Cerebrovascular Accident: Yes (L sided weakness, had TPA) - HEENT Hx HEENT Problems: No - RENAL Hx Chronic Kidney Disease: No - ENDOCRINE/METABOLIC Hx Endocrine Disorders: No - HEMATOLOGICAL/ONCOLOGICAL Hx Blood Disorders: No - INTEGUMENTARY Hx Dermatological Problems: No - MUSCULOSKELETAL/RHEUMATOLOGICAL Hx Musculoskeletal Disorders: Yes (Hx of Rt Knee Surgery 2015.) Hx Falls: No - GASTROINTESTINAL Hx Gastrointestinal Disorders: Yes (Gastritis) - GENITOURINARY/GYNECOLOGICAL Hx Genitourinary Disorders: No - PSYCHIATRIC Hx Depression: No Hx Emotional Abuse: No Hx Physical Abuse: No Hx Substance Use: No - SURGICAL HISTORY Hx Surgeries: No Hx Cholecystectomy: Yes Hx Hysterectomy: Yes - ANESTHESIA Hx Anesthesia: No Hx Anesthesia Reactions: No Hx Malignant Hyperthermia: No Meds Home Medications: Home Medication List Medication Instructions Recorded Confirmed Type Acetaminophen [Tylenol 650 mg PO Q6H PRN 01/12/17 Rx 650mg/20.3ml solution UD] Aspirin [Aspirin Chewable] 81 mg PO DAILY 01/12/17 Rx Atorvastatin [Lipitor] 80 mg PO DIN tab 01/12/17 Rx Clopidogrel [Plavix] 75 mg PO DAILY tab 01/12/17 Rx FLUoxetine [Prozac] 20 mg PO DAILY cap 01/12/17 Rx Gabapentin [Neurontin] 100 mg PO TID cap 01/12/17 Rx Lisinopril [Zestril] 20 mg PO DAILY tab 01/12/17 Rx Zaleplon [Sonata] 5 mg PO HS PRN cap 01/12/17 Rx Allergies/Adverse Reactions: Allergies Allergy/AdvReac Type Severity Reaction Status Date / Time avocado Allergy Severe SWELLING Verified 01/04/17 03:58 aspirin Allergy Intermediate NAUSEA Verified 01/08/17 09:23 apple Allergy SHORTNESS Verified 01/08/17 08:30 OF BREATH - Medications Medications: Current Medications Acetaminophen (Tylenol 650mg/20.3ml Solution Ud) 650 mg PO Q6H PRN PRN Reason: Temperature Last Admin: 01/10/17 16:08 Dose: 650 mg Alprazolam (Xanax) 0.5 mg PO BID PRN; Protocol PRN Reason: Anxiety Aspirin (Aspirin Chewable) 81 mg PO DAILY [facility] Last Admin: 01/12/17 10:55 Dose: 81 mg Atorvastatin Calcium (Lipitor) 80 mg PO DIN [facility] Last Admin: 01/11/17 17:12 Dose: 80 mg Clopidogrel Bisulfate (Plavix) 75 mg PO DAILY [facility] Last Admin: 01/12/17 10:55 Dose: 75 mg Fluoxetine HCl (Prozac) 20 mg PO DAILY [facility] Last Admin: 01/12/17 10:54 Dose: 20 mg Gabapentin (Neurontin) 100 mg PO TID [facility] PRN Reason: Protocol Last Admin: 01/12/17 14:34 Dose: 100 mg Lisinopril (Zestril) 20 mg PO DAILY [facility] Last Admin: 01/12/17 10:55 Dose: 20 mg Pantoprazole Sodium (Protonix Inj) 40 mg IVP DAILY [facility] Last Admin: 01/12/17 10:54 Dose: 40 mg Zaleplon (Sonata) 5 mg PO HS PRN PRN Reason: Insomnia Results - Vital Signs Recent Vital Signs: Last Vital Signs Temp 99 F 01/12/17 12:00 Pulse 82 01/12/17 12:00 Resp 18 01/12/17 12:00 BP 122/79 01/12/17 12:00 Pulse Ox 97 01/12/17 06:00 - Labs Result Diagrams: 01/12/17 06:00 01/12/17 06:00 Labs: Laboratory Results - last 24 hr 01/11/17 01/11/17 01/12/17 16:18 20:49 06:00 WBC 9.2 RBC 3.94 Hgb 12.6 Hct 37.6 MCV 95.4 MCH 32.0 MCHC 33.5 RDW 12.1 Plt Count 209 MPV 10.6 Gran % 60.4 Lymph % (Auto) 28.7 Cross % (Auto) 8.7 H Eos % (Auto) 1.9 Baso % (Auto) 0.3 Gran # 5.54 Lymph # 2.6 Cross # 0.8 H Eos # 0.2 Baso # 0.03 Sodium Potassium Chloride Carbon Dioxide Anion Gap BUN Creatinine Est GFR ( Amer) Est GFR (Non-Af Amer) POC Glucose (mg/dL) 90 112 H Random Glucose Calcium 01/12/17 06:00 WBC RBC Hgb Hct MCV MCH MCHC RDW Plt Count MPV Gran % Lymph % (Auto) Cross % (Auto) Eos % (Auto) Baso % (Auto) Gran # Lymph # Cross # Eos # Baso # Sodium 136 Potassium 4.7 Chloride 99 Carbon Dioxide 28 Anion Gap 14 BUN 12 Creatinine 0.5 Est GFR ( Amer) > 60 Est GFR (Non-Af Amer) > 60 POC Glucose (mg/dL) Random Glucose 96 Calcium 9.4
--- NOTE | 2017-01-12 15:04 | CP.PCM.PN ---
<TRA MEEHAN - Last Filed: 01/12/17 15:01> Subjective - Date & Time of Evaluation Date of Evaluation: 01/12/17 Time of Evaluation: 11:15 - Subjective Subjective: Medicine Progress Note: Pt was seen and assessed at bedside. Pt currently has no new complaints. Left sided weakness present on admission is unchanged. Pt denies fever, headache, changes in vision, dysphagia, shortness of breath, chest pain, N/V or abdominal pain. Objective - Vital Signs/Intake and Output Vital Signs (last 24 hours): Temp Pulse Resp BP Pulse Ox 99 F 82 18 122/79 97 01/12/17 12:00 01/12/17 12:00 01/12/17 12:00 01/12/17 12:00 01/12/17 06:00 Intake and Output: 01/12/17 01/12/17 06:59 18:59 Intake Total 480 Output Total 1000 Balance -520 - Medications Medications: Current Medications Acetaminophen (Tylenol 650mg/20.3ml Solution Ud) 650 mg PO Q6H PRN PRN Reason: Temperature Last Admin: 01/10/17 16:08 Dose: 650 mg Alprazolam (Xanax) 0.5 mg PO BID PRN; Protocol PRN Reason: Anxiety Aspirin (Aspirin Chewable) 81 mg PO DAILY [facility] Last Admin: 01/12/17 10:55 Dose: 81 mg Atorvastatin Calcium (Lipitor) 80 mg PO DIN [facility] Last Admin: 01/11/17 17:12 Dose: 80 mg Clopidogrel Bisulfate (Plavix) 75 mg PO DAILY [facility] Last Admin: 01/12/17 10:55 Dose: 75 mg Fluoxetine HCl (Prozac) 20 mg PO DAILY [facility] Last Admin: 01/12/17 10:54 Dose: 20 mg Gabapentin (Neurontin) 100 mg PO TID [facility] PRN Reason: Protocol Last Admin: 01/12/17 14:34 Dose: 100 mg Lisinopril (Zestril) 20 mg PO DAILY [facility] Last Admin: 01/12/17 10:55 Dose: 20 mg Pantoprazole Sodium (Protonix Inj) 40 mg IVP DAILY [facility] Last Admin: 01/12/17 10:54 Dose: 40 mg Zaleplon (Sonata) 5 mg PO HS PRN PRN Reason: Insomnia - Labs Labs: 01/12/17 06:00 01/12/17 06:00 PT 11.1 Seconds (9.9-11.8) 01/04/17 05:30 INR 1.03 (0.93-1.08) 01/04/17 05:30 APTT 25.7 Seconds (23.7-30.8) 01/04/17 05:30 - Constitutional Appears: No Acute Distress - Head Exam Head Exam: NORMAL INSPECTION, NORMOCEPHALIC - Eye Exam Eye Exam: EOMI, Normal appearance - ENT Exam ENT Exam: Mucous Membranes Moist, Normal Exam - Neck Exam Neck Exam: Full ROM - Respiratory Exam Respiratory Exam: Clear to Ausculation Bilateral, NORMAL BREATHING PATTERN. absent: Rales, Rhonchi, Wheezes - Cardiovascular Exam Cardiovascular Exam: REGULAR RHYTHM, +S1, +S2. absent: Murmur - GI/Abdominal Exam GI & Abdominal Exam: Normal Bowel Sounds. absent: Tenderness - Extremities Exam Extremities Exam: absent: Calf Tenderness, Pedal Edema - Neurological Exam Neurological Exam: Alert, Awake, Oriented x3 - Psychiatric Exam Psychiatric exam: Normal Affect, Normal Mood - Skin Skin Exam: Dry, Intact, Normal Color, Warm Assessment and Plan - Assessment and Plan (Free Text) Assessment: Patient is a 46yo female with a history of 2 prior CVA's, hypertension and hyperlipidemia who is admitted for evaluation and treatment for a suspected CVA/ TIA. Plan: 1. Left sided weakness -Continue aspirin, lipitor, gabapentin, and plavix -Continue neurochecks q2h -Recommend acute rehab placement, per PT/OT evaluation -CM/SW working on AR placement 2. Dysphagia -resolved and heart healthy diet resumed -patient has no limitations with swallowing, per ENGINE[employer]ING [employer] -recommend outpatient followup with ENT for CT findings of nonspecific shotty cervical nodes at multiple levels and bilateral parotid lymph nodes to correlate patients dysphagia 3. Chest pain -Cont aspirin and lipitor -cardiology following 4. Insomnia -sonata PRN 5. Gi/DVT Prophylaxis -Protonix/SCD's Patient seen and case discussed with attending physician, Dr. Richardson. <Leonel Richardson - Last Filed: 01/12/17 17:31> Objective - Vital Signs/Intake and Output Vital Signs (last 24 hours): Temp Pulse Resp BP Pulse Ox 99 F 82 18 122/79 97 01/12/17 12:00 01/12/17 12:00 01/12/17 12:00 01/12/17 12:00 01/12/17 06:00 Intake and Output: 01/12/17 01/12/17 06:59 18:59 Intake Total 480 Output Total 1000 Balance -520 - Medications Medications: Current Medications Acetaminophen (Tylenol 650mg/20.3ml Solution Ud) 650 mg PO Q6H PRN PRN Reason: Temperature Last Admin: 01/12/17 15:19 Dose: 650 mg Alprazolam (Xanax) 0.5 mg PO BID PRN; Protocol PRN Reason: Anxiety Aspirin (Aspirin Chewable) 81 mg PO DAILY [facility] Last Admin: 01/12/17 10:55 Dose: 81 mg Atorvastatin Calcium (Lipitor) 80 mg PO DIN [facility] Last Admin: 01/11/17 17:12 Dose: 80 mg Clopidogrel Bisulfate (Plavix) 75 mg PO DAILY [facility] Last Admin: 01/12/17 10:55 Dose: 75 mg Fluoxetine HCl (Prozac) 20 mg PO DAILY [facility] Last Admin: 01/12/17 10:54 Dose: 20 mg Gabapentin (Neurontin) 100 mg PO TID [facility] PRN Reason: Protocol Last Admin: 01/12/17 14:34 Dose: 100 mg Lisinopril (Zestril) 20 mg PO DAILY [facility] Last Admin: 01/12/17 10:55 Dose: 20 mg Pantoprazole Sodium (Protonix Inj) 40 mg IVP DAILY [facility] Last Admin: 01/12/17 10:54 Dose: 40 mg Zaleplon (Sonata) 5 mg PO HS PRN PRN Reason: Insomnia - Labs Labs: 01/12/17 06:00 01/12/17 06:00 PT 11.1 Seconds (9.9-11.8) 01/04/17 05:30 INR 1.03 (0.93-1.08) 01/04/17 05:30 APTT 25.7 Seconds (23.7-30.8) 01/04/17 05:30 Attending/Attestation - Attestation I have personally seen and examined this patient.: Yes I have fully participated in the care of the patient.: Yes I have reviewed all pertinent clinical information, including history, physical exam and plan: Yes Notes (Text): 01/12/17 17:27 Attending note; Patient seen and examined with resident. Patient is a 46 year old female with past medical history of prior CVAs, hypertension and dyslipidemia who presented with suspected stroke with symptoms of left sided weakness. She received TPA on admission and was admitted to the ICU. CT head showed age indeterminate lacunar infarct in the left basal ganglia. CTA and MRA were negative. MRI brain showed no acute intracranial abnormality, no evidence of acute infarct , showed an old lacunar infarction in the left montoya radiata. Echocardiogram showed normal LV function. EEG was negative. on aspirin, plavix, lisinopril and lipitor. She is on sonata prn and prozac. Continue gabapentin for neuropathy. PT evaluation appreciated. Case discussed with onsite case manager for acute rehabilitation placement.
[2017-01-12] MEDS: Acetaminophen 650mg/20.3ml solution UD PO PRN (15:19)
[2017-01-13 06:20] VITALS: O2SAT 97
[2017-01-13] MEDS ORDERED: Pantoprazole 40 mg EC Tab PO SCH (06:30)
[2017-01-13 07:32] LABS: BASO # 0.02 K/mm3 (0.0-2.0); BASO % 0.2 % (0.0-3.0); EOS # 0.1 (0.0-0.7); EOS % 1.5 % (1.5-5.0); GRAN # 6.15 (1.4-6.5); HEMOGLOBIN 13.2 gm/dL (12.0-16.0); LYMPH # 2.3 (1.2-3.4); LYMPH % 24.7 % (22.0-35.0); MEAN CELL VOLUME 95.6 fL (80.0-105.0); MEAN CORPUSCULAR HEMOGLOBIN 32.5 pg (25.0-35.0); MEAN PLATELET VOLUME 10.5 fl (7.0-11.0); MONO # 0.7 (0.1-0.6); MONO % 7.6 % (1.0-6.0); PLATELET COUNT 224 10^3/uL (120.0-450.0); RBC 4.06 10^6/uL (3.5-6.1); RED CELL DISTRIBUTION WIDTH 12.1 % (11.5-14.5); WHITE BLOOD COUNT 9.3 10^3/ul (4.5-11.0)
[2017-01-13 07:57] LABS: BLOOD UREA NITROGEN 14 mg/dL (7-21); CALCIUM 9.5 mg/dL (8.4-10.5); GFR AFRICAN-AMERICAN > 60; GFR NON-AFRICAN AMERICAN > 60
[2017-01-13 11:47] VITALS: RESP 21
--- NOTE | 2017-01-13 16:02 | CP.PCM.CON ---
History of Present Illness - History of Present Illness History of Present Illness: This is a 46 year-old female who has a history of 2 prior CVA's who is admitted to the ICU unit with another CVA. She also received TPA on a previous admission in 2012. Patient had CVA where she where she received TPA at that time as well. Patient also has a history of hypertension, hyperlipidemia, and gastritis. Patient originally came in with left arm and left leg weakness. Since being admitted patient has had some voice change, no real pain, no difficulty with respiration, but does have some difficulty with swallowing. Was seen by speech therapy who thought ENT should evaluate the patient. Review of Systems - Review of Systems All systems: reviewed and no additional remarkable complaints except - EENT Eyes: As Per HPI Past Patient History - Infectious Disease Hx of Infectious Diseases: None - Tetanus Immunizations Tetanus Immunization: Unknown - Past Social History Smoking Status: Never Smoked Alcohol: None - CARDIAC Hx Hypertension: Yes - PULMONARY Hx Respiratory Disorders: No - NEUROLOGICAL HX Cerebrovascular Accident: Yes (L sided weakness, had TPA) - HEENT Hx HEENT Problems: No - RENAL Hx Chronic Kidney Disease: No - ENDOCRINE/METABOLIC Hx Endocrine Disorders: No - HEMATOLOGICAL/ONCOLOGICAL Hx Blood Disorders: No - INTEGUMENTARY Hx Dermatological Problems: No - MUSCULOSKELETAL/RHEUMATOLOGICAL Hx Musculoskeletal Disorders: Yes (Hx of Rt Knee Surgery 2014.) Hx Falls: No - GASTROINTESTINAL Hx Gastrointestinal Disorders: Yes (Gastritis) - GENITOURINARY/GYNECOLOGICAL Hx Genitourinary Disorders: No - PSYCHIATRIC Hx Depression: No Hx Emotional Abuse: No Hx Physical Abuse: No Hx Substance Use: No - SURGICAL HISTORY Hx Surgeries: No Hx Cholecystectomy: Yes Hx Hysterectomy: Yes - ANESTHESIA Hx Anesthesia: No Hx Anesthesia Reactions: No Hx Malignant Hyperthermia: No Meds Home Medications: Home Medication List Medication Instructions Recorded Confirmed Type Atorvastatin [Lipitor] 80 mg PO DIN tab 01/12/17 Rx Clopidogrel [Plavix] 75 mg PO DAILY tab 01/12/17 Rx FLUoxetine [Prozac] 20 mg PO DAILY cap 01/12/17 Rx Gabapentin [Neurontin] 100 mg PO TID cap 01/12/17 Rx Zaleplon [Sonata] 5 mg PO HS PRN cap 01/12/17 Rx Allergies/Adverse Reactions: Allergies Allergy/AdvReac Type Severity Reaction Status Date / Time avocado Allergy Severe SWELLING Verified 01/04/17 03:58 aspirin Allergy Intermediate NAUSEA Verified 01/08/17 09:23 apple Allergy SHORTNESS Verified 01/08/17 08:30 OF BREATH - Medications Medications: Current Medications Acetaminophen (Tylenol 650mg/20.3ml Solution Ud) 650 mg PO Q6H PRN PRN Reason: Temperature Last Admin: 01/12/17 15:19 Dose: 650 mg Alprazolam (Xanax) 0.5 mg PO BID PRN; Protocol PRN Reason: Anxiety Aspirin (Aspirin Chewable) 81 mg PO DAILY [facility] Last Admin: 01/13/17 10:32 Dose: 81 mg Atorvastatin Calcium (Lipitor) 80 mg PO DIN [facility] Last Admin: 01/12/17 17:50 Dose: 80 mg Clopidogrel Bisulfate (Plavix) 75 mg PO DAILY [facility] Last Admin: 01/13/17 10:32 Dose: 75 mg Fluoxetine HCl (Prozac) 20 mg PO DAILY [facility] Last Admin: 01/13/17 10:32 Dose: 20 mg Gabapentin (Neurontin) 100 mg PO TID [facility] PRN Reason: Protocol Last Admin: 01/13/17 15:23 Dose: 100 mg Lisinopril (Zestril) 20 mg PO DAILY [facility] Last Admin: 01/13/17 10:32 Dose: 20 mg Pantoprazole Sodium (Protonix Ec Tab) 40 mg PO 0600 [facility] Last Admin: 01/13/17 07:00 Dose: 40 mg Zaleplon (Sonata) 5 mg PO HS PRN PRN Reason: Insomnia Physical Exam - Constitutional Additional comments: Patient appears in NAD. She is alert. Her speech is slow but she is able to communicate with time. Patient's face does appear symmetric. - ENT Exam Additional comments: The nose is not prone to epistaxis. Oral cavity, she has some moist mucus membranes. The palate raise is symmetrically. Patient appears to have a gag reflex. The buccal mucosa is within normal limits. The floor mouth is soft. - Neck Exam Additional comments: No palpable adenopathy. Trachea is midline. Results - Vital Signs Recent Vital Signs: Last Vital Signs Temp 98 F 01/13/17 11:38 Pulse 85 01/13/17 11:38 Resp 21 01/13/17 11:38 BP 117/78 01/13/17 11:38 Pulse Ox 97 01/13/17 06:00 - Labs Result Diagrams: 01/13/17 07:15 01/13/17 07:15 Labs: Laboratory Results - last 24 hr 01/12/17 01/12/17 01/13/17 16:30 21:21 07:15 WBC 9.3 RBC 4.06 Hgb 13.2 Hct 38.8 MCV 95.6 MCH 32.5 MCHC 34.0 RDW 12.1 Plt Count 224 MPV 10.5 Gran % 66.0 Lymph % (Auto) 24.7 Door % (Auto) 7.6 H Eos % (Auto) 1.5 Baso % (Auto) 0.2 Gran # 6.15 Lymph # 2.3 Door # 0.7 H Eos # 0.1 Baso # 0.02 Sodium Potassium Chloride Carbon Dioxide Anion Gap BUN Creatinine Est GFR ( Amer) Est GFR (Non-Af Amer) POC Glucose (mg/dL) 100 90 Random Glucose Calcium 01/13/17 01/13/17 01/13/17 07:15 07:25 10:53 WBC RBC Hgb Hct MCV MCH MCHC RDW Plt Count MPV Gran % Lymph % (Auto) Door % (Auto) Eos % (Auto) Baso % (Auto) Gran # Lymph # Door # Eos # Baso # Sodium 138 Potassium 4.1 Chloride 100 Carbon Dioxide 28 Anion Gap 14 BUN 14 Creatinine 0.5 Est GFR ( Amer) > 60 Est GFR (Non-Af Amer) > 60 POC Glucose (mg/dL) 101 102 Random Glucose 102 Calcium 9.5 - Impressions Impression: CBC white count: 7.8 Hemoglobin: 13.4 Platelet count: 243 Assessment & Plan - Assessment and Plan (Free Text) Assessment: This is a 46 yo female with a slight a hemorrhagic right true vocal cord that could be related to TPA administration but no masses or nodules or no growth deformities were noted. Nothing is blocking the airway. No reason for the patient to have difficulty swallowing. Plan: Would recommend patient starting on liquid diet and advancing as tolerated, probably keep a soft diet. Patient can have voice rest for now and can follow up as outpatient to see resolution of this issue but no acute intervention needs to be made. - Date & Time Date: 01/04/17 Time: 17:53
--- NOTE | 2017-01-13 17:34 | CP.PCM.PN ---
Subjective - Date & Time of Evaluation Date of Evaluation: 01/13/17 Time of Evaluation: 10:00 - Subjective Subjective: No New complain Objective - Vital Signs/Intake and Output Vital Signs (last 24 hours): Temp Pulse Resp BP Pulse Ox 98 F 85 21 117/78 97 01/13/17 11:38 01/13/17 11:38 01/13/17 11:38 01/13/17 11:38 01/13/17 06:00 Intake and Output: 01/13/17 01/13/17 06:59 18:59 Intake Total 120 Output Total 0 Balance 120 - Medications Medications: Current Medications Acetaminophen (Tylenol 650mg/20.3ml Solution Ud) 650 mg PO Q6H PRN PRN Reason: Temperature Last Admin: 01/12/17 15:19 Dose: 650 mg Alprazolam (Xanax) 0.5 mg PO BID PRN; Protocol PRN Reason: Anxiety Aspirin (Aspirin Chewable) 81 mg PO DAILY [facility] Last Admin: 01/13/17 10:32 Dose: 81 mg Atorvastatin Calcium (Lipitor) 80 mg PO DIN [facility] Last Admin: 01/12/17 17:50 Dose: 80 mg Clopidogrel Bisulfate (Plavix) 75 mg PO DAILY [facility] Last Admin: 01/13/17 10:32 Dose: 75 mg Fluoxetine HCl (Prozac) 20 mg PO DAILY [facility] Last Admin: 01/13/17 10:32 Dose: 20 mg Gabapentin (Neurontin) 100 mg PO TID [facility] PRN Reason: Protocol Last Admin: 01/13/17 15:23 Dose: 100 mg Lisinopril (Zestril) 20 mg PO DAILY [facility] Last Admin: 01/13/17 10:32 Dose: 20 mg Pantoprazole Sodium (Protonix Ec Tab) 40 mg PO 0600 [facility] Last Admin: 01/13/17 07:00 Dose: 40 mg Zaleplon (Sonata) 5 mg PO HS PRN PRN Reason: Insomnia - Labs Labs: 01/13/17 07:15 01/13/17 07:15 PT 11.1 Seconds (9.9-11.8) 01/04/17 05:30 INR 1.03 (0.93-1.08) 01/04/17 05:30 APTT 25.7 Seconds (23.7-30.8) 01/04/17 05:30 - Constitutional Appears: Well - Head Exam Head Exam: ATRAUMATIC - Eye Exam Eye Exam: Conjunctival injection - ENT Exam ENT Exam: Mucous Membranes Dry - Neck Exam Neck Exam: Full ROM - Respiratory Exam Respiratory Exam: Clear to Ausculation Bilateral - Cardiovascular Exam Cardiovascular Exam: REGULAR RHYTHM - Neurological Exam Neuro motor strength exam: Left Upper Extremity: 3, Right Upper Extremity: 5, Left Lower Extremity: 2/1, Right Lower Extremity: 5 Assessment and Plan - Assessment and Plan (Free Text) Assessment: 46 year old female with PMhx HTN, CVA admitted with suspected Stroke with left sied weakness S/p TPA HTN Hyperlipidemia Residual left sised wekness Plan: Continue ASA/ Statin/Lisinopril Neuro F/u awaiting for placement to acute rehab fascility.
[2017-01-13 18:06] VITALS: BP 107/69; TEMP 98.7
[2017-01-13 19:50] VITALS: PULSE 101
--- NOTE | 2017-01-13 20:49 | CP.PCM.DIS ---
<TRA MEEHAN - Last Filed: 01/13/17 20:46> Provider - Provider Date of Admission: 01/03/17 21:55 Attending physician: Leonel Richardson MD Primary care physician: NO PRIMARY CARE PROVIDER Consults: Neuro: Oleg Hendricks Cardio: David Psych: Abdtish ENT: Cat Time Spent in preparation of Discharge (in minutes): 58 Hospital Course - Lab Results Lab Results: Micro Results 01/08/17 10:25 Stool C. difficile Antigen & Toxin A,B (M - Final 01/03/17 23:20 Nose MRSA Culture (Admit) - Final MRSA NOT DETECTED Most Recent Lab Values WBC 9.3 10^3/ul (4.5-11.0) 01/13/17 07:15 RBC 4.06 10^6/uL (3.5-6.1) 01/13/17 07:15 Hgb 13.2 gm/dL (12.0-16.0) 01/13/17 07:15 Hct 38.8 % (36.0-48.0) 01/13/17 07:15 MCV 95.6 fL (80.0-105.0) 01/13/17 07:15 MCH 32.5 pg (25.0-35.0) 01/13/17 07:15 MCHC 34.0 g/dl (31.0-37.0) 01/13/17 07:15 RDW 12.1 % (11.5-14.5) 01/13/17 07:15 Plt Count 224 10^3/uL (120.0-450.0) 01/13/17 07:15 MPV 10.5 fl (7.0-11.0) 01/13/17 07:15 Gran % 66.0 % (50.0-68.0) 01/13/17 07:15 Lymph % (Auto) 24.7 % (22.0-35.0) 01/13/17 07:15 [place] % (Auto) 7.6 % (1.0-6.0) H 01/13/17 07:15 Eos % (Auto) 1.5 % (1.5-5.0) 01/13/17 07:15 Baso % (Auto) 0.2 % (0.0-3.0) 01/13/17 07:15 Gran # 6.15 (1.4-6.5) 01/13/17 07:15 Lymph # 2.3 (1.2-3.4) 01/13/17 07:15 [place] # 0.7 (0.1-0.6) H 01/13/17 07:15 Eos # 0.1 (0.0-0.7) 01/13/17 07:15 Baso # 0.02 K/mm3 (0.0-2.0) 01/13/17 07:15 Neutrophils % (Manual) 44 % (50.0-70.0) L 01/04/17 05:30 Band Neutrophils % 3 % (0-2) H 01/04/17 05:30 Lymphocytes % (Manual) 43 % (22.0-35.0) H 01/04/17 05:30 Monocytes % (Manual) 7 % (1.0-6.0) H 01/04/17 05:30 Eosinophils % (Manual) 3 % (0.0-3.0) 01/04/17 05:30 Platelet Evaluation Normal (NORMAL) 01/04/17 05:30 PT 11.1 Seconds (9.9-11.8) 01/04/17 05:30 INR 1.03 (0.93-1.08) 01/04/17 05:30 APTT 25.7 Seconds (23.7-30.8) 01/04/17 05:30 pCO2 34 mm/Hg (35-45) L 01/07/17 14:42 pO2 114.0 mm/Hg (80-100) H 01/07/17 14:42 HCO3 24.7 mmol/L (21-28) 01/07/17 14:42 ABG pH 7.47 (7.35-7.45) H 01/07/17 14:42 ABG Total CO2 25.7 mmol.L (22-28) 01/07/17 14:42 ABG O2 Saturation 97.5 % (95-98) 01/07/17 14:42 ABG O2 Content 19.7 ML/dl (15-23) 01/07/17 14:42 ABG Base Excess 1.5 mmol/L (-2.0-3.0) 01/07/17 14:42 ABG Hemoglobin 14.5 g/dL (11.7-17.4) 01/07/17 14:42 ABG Carboxyhemoglobin 0.5 % (0.5-1.5) 01/07/17 14:42 POC ABG HHb (Measured) 2.5 % (0-5) 01/07/17 14:42 ABG Methemoglobin 0.7 % (0.0-3.0) 01/07/17 14:42 ABG O2 Capacity 20.2 mL/dl (16-24) 01/07/17 14:42 Hgb O2 Saturation 96.2 % (95.0-98.0) 01/07/17 14:42 FiO2 28.0 % 01/07/17 14:42 Sodium 138 mmol/L (132-148) 01/13/17 07:15 Potassium 4.1 mmol/L (3.6-5.0) 01/13/17 07:15 Chloride 100 mmol/L (98-107) 01/13/17 07:15 Carbon Dioxide 28 mmol/L (21-33) 01/13/17 07:15 Anion Gap 14 (10-20) 01/13/17 07:15 BUN 14 mg/dL (7-21) 01/13/17 07:15 Creatinine 0.5 mg/dL (0.5-1.4) 01/13/17 07:15 Est GFR ( Amer) > 60 01/13/17 07:15 Est GFR (Non-Af Amer) > 60 01/13/17 07:15 POC Glucose (mg/dL) 102 mg/dL (65-110) 01/13/17 10:53 Random Glucose 102 mg/dL (70-110) 01/13/17 07:15 Hemoglobin A1c 5.6 % (4.2-6.5) 01/05/17 13:56 Calcium 9.5 mg/dL (8.4-10.5) 01/13/17 07:15 Total Bilirubin 0.9 mg/dL (0.2-1.3) 01/08/17 08:30 AST 33 U/L (15-39) 01/08/17 08:30 ALT 46 U/L (7-56) 01/08/17 08:30 Alkaline Phosphatase 68 U/L (38-133) 01/08/17 08:30 Ammonia < 9 umol/L (9-33) L 01/07/17 16:32 Lactate Dehydrogenase 351 U/L (333-699) 01/07/17 16:32 Total Creatine Kinase 28 U/L (35-230) L 01/07/17 16:32 Troponin I < 0.01 ng/mL 01/07/17 16:32 Total Protein 7.6 g/dL (5.8-8.3) 01/08/17 08:30 Albumin 4.3 g/dL (3.0-4.8) 01/08/17 08:30 Globulin 3.4 gm/dL 01/08/17 08:30 Albumin/Globulin Ratio 1.3 (1.1-1.8) 01/08/17 08:30 Triglycerides 75 mg/dL (35-160) 01/05/17 10:12 Cholesterol 255 mg/dL (130-200) H 01/05/17 10:12 LDL Cholesterol Direct 191 mg/dL (0-129) H 01/05/17 10:12 HDL Cholesterol 56 mg/dL (29-60) 01/05/17 10:12 TSH 3rd Generation 1.41 mIU/mL (0.46-4.68) 01/05/17 13:56 Blood Type AB POSITIVE 01/03/17 18:48 Blood Type Confirm AB POSITIVE 01/03/17 20:19 Antibody Screen Negative 01/03/17 18:48 BBK History Checked No verified bt 01/03/17 18:48 - Hospital Course Hospital Course: 46 year old female with past medical history of prior CVAs, hypertension and dyslipidemia who presented with suspected stroke with symptoms of left sided weakness. She received TPA on admission and was admitted to the ICU. CT head showed age indeterminate lacunar infarct in the left basal ganglia. CTA and MRA were negative. MRI brain showed no acute intracranial abnormality, no evidence of acute infarct, showed an old lacunar infarction in the left montoya radiata. Echocardiogram and repeat CT heads were reviewed and were negative. She was followed by neurology and put on aspirin and lipitor. PT was also following and recommended acute rehab. Psychiatry was also following for depression, anxiety and to r/o somatoform vs conversion disorder. Patient had [employer] for unresponsiveness and was moved to ICU but after EEG was negative she was moved back up to remote telemetry. She initially complained of chest pain which improved. Serial cardiac enzymes were negative and ACS was ruled out. Cardiology was following. - Date & Time of H&P Date of H&P: 01/03/17 Time of H&P: 23:20 Discharge Exam - Head Exam Head Exam: ATRAUMATIC - Eye Exam Eye Exam: EOMI, Normal appearance - Respiratory Exam Respiratory Exam: NORMAL BREATHING PATTERN. absent: Rales, Rhonchi, Wheezes, Respiratory Distress - Cardiovascular Exam Cardiovascular Exam: REGULAR RHYTHM, RRR, +S1, +S2 - GI/Abdominal Exam GI & Abdominal Exam: Normal Bowel Sounds - Extremities Exam Additional comments: no calf tenderness or lower extremity edema - Neurological Exam Neurological exam: Alert, Oriented x3 - Psychiatric Exam Psychiatric exam: Normal Affect, Normal Mood - Skin Skin Exam: Dry, Intact, Normal Color, Warm Discharge Plan - Follow Up Plan Condition: STABLE Disposition: TRANSF TO SNF Instructions: Weakness (GEN), Hyperlipidemia (DC), Stroke (DC) Additional Instructions: 1. Follow up with PMD Dr. Greenwood within 1 week 2. Follow up with Neurologist Dr. Bentley within 1 week 3. Continue PT in Rehab 4. Return to the emergency room should your symptoms worsen or change in severity Referrals: PCP,NO [Primary Care Provider] - <Leonel Richardson - Last Filed: 01/14/17 15:07> Provider - Provider Date of Admission: 01/03/17 21:55 Attending physician: Leonel Richardson MD Primary care physician: NO PRIMARY CARE PROVIDER Hospital Course - Lab Results Lab Results: Micro Results 01/08/17 10:25 Stool C. difficile Antigen & Toxin A,B (M - Final 01/03/17 23:20 Nose MRSA Culture (Admit) - Final MRSA NOT DETECTED Most Recent Lab Values WBC 9.3 10^3/ul (4.5-11.0) 01/13/17 07:15 RBC 4.06 10^6/uL (3.5-6.1) 01/13/17 07:15 Hgb 13.2 gm/dL (12.0-16.0) 01/13/17 07:15 Hct 38.8 % (36.0-48.0) 01/13/17 07:15 MCV 95.6 fL (80.0-105.0) 01/13/17 07:15 MCH 32.5 pg (25.0-35.0) 01/13/17 07:15 MCHC 34.0 g/dl (31.0-37.0) 01/13/17 07:15 RDW 12.1 % (11.5-14.5) 01/13/17 07:15 Plt Count 224 10^3/uL (120.0-450.0) 01/13/17 07:15 MPV 10.5 fl (7.0-11.0) 01/13/17 07:15 Gran % 66.0 % (50.0-68.0) 01/13/17 07:15 Lymph % (Auto) 24.7 % (22.0-35.0) 01/13/17 07:15 [place] % (Auto) 7.6 % (1.0-6.0) H 01/13/17 07:15 Eos % (Auto) 1.5 % (1.5-5.0) 01/13/17 07:15 Baso % (Auto) 0.2 % (0.0-3.0) 01/13/17 07:15 Gran # 6.15 (1.4-6.5) 01/13/17 07:15 Lymph # 2.3 (1.2-3.4) 01/13/17 07:15 [place] # 0.7 (0.1-0.6) H 01/13/17 07:15 Eos # 0.1 (0.0-0.7) 01/13/17 07:15 Baso # 0.02 K/mm3 (0.0-2.0) 01/13/17 07:15 Neutrophils % (Manual) 44 % (50.0-70.0) L 01/04/17 05:30 Band Neutrophils % 3 % (0-2) H 01/04/17 05:30 Lymphocytes % (Manual) 43 % (22.0-35.0) H 01/04/17 05:30 Monocytes % (Manual) 7 % (1.0-6.0) H 01/04/17 05:30 Eosinophils % (Manual) 3 % (0.0-3.0) 01/04/17 05:30 Platelet Evaluation Normal (NORMAL) 01/04/17 05:30 PT 11.1 Seconds (9.9-11.8) 01/04/17 05:30 INR 1.03 (0.93-1.08) 01/04/17 05:30 APTT 25.7 Seconds (23.7-30.8) 01/04/17 05:30 pCO2 34 mm/Hg (35-45) L 01/07/17 14:42 pO2 114.0 mm/Hg (80-100) H 01/07/17 14:42 HCO3 24.7 mmol/L (21-28) 01/07/17 14:42 ABG pH 7.47 (7.35-7.45) H 01/07/17 14:42 ABG Total CO2 25.7 mmol.L (22-28) 01/07/17 14:42 ABG O2 Saturation 97.5 % (95-98) 01/07/17 14:42 ABG O2 Content 19.7 ML/dl (15-23) 01/07/17 14:42 ABG Base Excess 1.5 mmol/L (-2.0-3.0) 01/07/17 14:42 ABG Hemoglobin 14.5 g/dL (11.7-17.4) 01/07/17 14:42 ABG Carboxyhemoglobin 0.5 % (0.5-1.5) 01/07/17 14:42 POC ABG HHb (Measured) 2.5 % (0-5) 01/07/17 14:42 ABG Methemoglobin 0.7 % (0.0-3.0) 01/07/17 14:42 ABG O2 Capacity 20.2 mL/dl (16-24) 01/07/17 14:42 Hgb O2 Saturation 96.2 % (95.0-98.0) 01/07/17 14:42 FiO2 28.0 % 01/07/17 14:42 Sodium 138 mmol/L (132-148) 01/13/17 07:15 Potassium 4.1 mmol/L (3.6-5.0) 01/13/17 07:15 Chloride 100 mmol/L (98-107) 01/13/17 07:15 Carbon Dioxide 28 mmol/L (21-33) 01/13/17 07:15 Anion Gap 14 (10-20) 01/13/17 07:15 BUN 14 mg/dL (7-21) 01/13/17 07:15 Creatinine 0.5 mg/dL (0.5-1.4) 01/13/17 07:15 Est GFR ( Amer) > 60 01/13/17 07:15 Est GFR (Non-Af Amer) > 60 01/13/17 07:15 POC Glucose (mg/dL) 107 mg/dL (65-110) 01/13/17 16:17 Random Glucose 102 mg/dL (70-110) 01/13/17 07:15 Hemoglobin A1c 5.6 % (4.2-6.5) 01/05/17 13:56 Calcium 9.5 mg/dL (8.4-10.5) 01/13/17 07:15 Total Bilirubin 0.9 mg/dL (0.2-1.3) 01/08/17 08:30 AST 33 U/L (15-39) 01/08/17 08:30 ALT 46 U/L (7-56) 01/08/17 08:30 Alkaline Phosphatase 68 U/L (38-133) 01/08/17 08:30 Ammonia < 9 umol/L (9-33) L 01/07/17 16:32 Lactate Dehydrogenase 351 U/L (333-699) 01/07/17 16:32 Total Creatine Kinase 28 U/L (35-230) L 01/07/17 16:32 Troponin I < 0.01 ng/mL 01/07/17 16:32 Total Protein 7.6 g/dL (5.8-8.3) 01/08/17 08:30 Albumin 4.3 g/dL (3.0-4.8) 01/08/17 08:30 Globulin 3.4 gm/dL 01/08/17 08:30 Albumin/Globulin Ratio 1.3 (1.1-1.8) 01/08/17 08:30 Triglycerides 75 mg/dL (35-160) 01/05/17 10:12 Cholesterol 255 mg/dL (130-200) H 01/05/17 10:12 LDL Cholesterol Direct 191 mg/dL (0-129) H 01/05/17 10:12 HDL Cholesterol 56 mg/dL (29-60) 07/04/17 10:12 TSH 3rd Generation 1.41 mIU/mL (0.46-4.68) 01/05/17 13:56 Blood Type AB POSITIVE 01/03/17 18:48 Blood Type Confirm AB POSITIVE 01/03/17 20:19 Antibody Screen Negative 01/03/17 18:48 BBK History Checked No verified bt 01/03/17 18:48 Attending/Attestation - Attestation I have personally seen and examined this patient.: Yes I have fully participated in the care of the patient.: Yes I have reviewed all pertinent clinical information, including history, physical exam and plan: Yes Notes (Text): 01/14/17 15:06 Attending note; Patient seen and examined with resident. Patient is a 46 year old female with past medical history of prior CVAs, hypertension and dyslipidemia who presented with suspected stroke with symptoms of left sided weakness. She received TPA on admission and was admitted to the ICU. CT head showed age indeterminate lacunar infarct in the left basal ganglia. CTA and MRA were negative. MRI brain showed no acute intracranial abnormality, no evidence of acute infarct , showed an old lacunar infarction in the left [place] radiata. Echocardiogram showed normal LV function. EEG was negative. on aspirin, plavix, lisinopril and lipitor. She is on sonata prn and prozac. Continue gabapentin for neuropathy. PT evaluation appreciated. Case discussed with supervisor case loading for acute rehabilitation placement. Transfer to rehab today. Diagnosis; Left sided weakness History of CVA Anxiety depression Hypertension Hyperlipidemia
--- NOTE | 2017-01-20 15:09 | EEG ---
EEG REPORT DATE: 01/20/2017. CONDITION OF THE RECORDING: Drowsy. DIAGNOSIS: Cerebrovascular accident, rule out seizure. MEDICATIONS: Reviewed via nurses reconciliation sheet. INTERPRETATION: This is a 16-channel EEG recording. The background activities are close to 8 cycles per second. There is a small amount of beta activity of 16-20 cycles per second recorded. There was small amount of theta activity of 5-7 cycles per second *------*. Drowsiness was characterized by mixed beta and theta activities *------* slowing. Photic stimulation showed no changes of the tracing. No paroxysmal activity noted during this recording. CONCLUSION: This is a normal drowsy EEG. No evidence of any epileptiform activity. Please clinically correlate. Primitivo Dejesus MD
== END 2017-01-13 20:21 | DRG 62 ==
LOC: ED 19:34 → ERH 21:55 → CCU 23:15 → 2RNO 01-06 11:45 → CCU 01-07 22:49 → 2RSO 01-08 20:42
PROVIDERS: ADMIT Internal Medicine; ATTEND Internal Medicine
PROC: 3E03317 Introduction of Other Thrombolytic into Peripheral Vein, Percutaneous Approach (ICD-10-PCS; principal; 2017-01-03)
PROC: 0CJS8ZZ Inspection of Larynx, Via Natural or Artificial Opening Endoscopic (ICD-10-PCS; 2017-01-04)
DX: I63.9 Cerebral infarction, unspecified (principal); G81.94 Hemiplegia, unspecified affecting left nondominant side; G83.84 Todd's paralysis (postepileptic); I10 Essential (primary) hypertension; E78.5 Hyperlipidemia, unspecified; R29.708 NIHSS score 8; K29.70 Gastritis, unspecified, without bleeding; G62.9 Polyneuropathy, unspecified; F32.9 Major depressive disorder, single episode, unspecified; F41.9 Anxiety disorder, unspecified; R07.9 Chest pain, unspecified; G47.00 Insomnia, unspecified; R20.3 Hyperesthesia; R13.10 Dysphagia, unspecified; Z88.6 Allergy status to analgesic agent